=== PATIENT | female | born 1965 | race Hispanic/Latino ===

== ENCOUNTER 2019-12-25 16:01 | Emergency (ER) | payer BC ==
[2019-12-25 18:49] LABS: Basophils % (Auto) 0.7 % (0.0-1.8); Eosinophils % (Auto) 0.5 % (0.0-4.3); Hematocrit 39.9 % (30.3-42.9); Hemoglobin 14.1 gm/dl (10.1-14.3); Lymphocytes # (Auto) 1.7 K/mm3 (1.2-5.4); Lymphocytes % (Auto) 27.5 % (13.4-35.0); Mean Corpuscular HGB Conc 35 % (30-34); Mean Corpuscular Volume 85 fl (79-97); Monocytes # (Auto) 0.4 K/mm3 (0.0-0.8); Monocytes % (Auto) 6.9 % (0.0-7.3); Platelet Count 253 K/mm3 (140-440); Red Cell Distribution Width 13.2 % (13.2-15.2)
--- NOTE | 2019-12-25 18:55 | Emergency Department Report ---
ED General Adult HPI - General Chief complaint: High BP Stated complaint: HYPERTENSION PUI?: No Time Seen by Provider: 12/25/19 18:22 Source: patient Mode of arrival: Ambulatory Limitations: No Limitations - History of Present Illness Initial comments: The patient was evaluated in the emergency department for symptoms described in the history of present illness. He/she was evaluated in the context of the global COVID-19 pandemic, which necessitated consideration that the patient might be at risk for infection with the virus that causes COVID-19. Institutional protocols and algorithms that pertain to the evaluation of pat ients at risk for COVID-19 are in a state of rapid change based on information released by regulatory bodies including the CDC and federal and state organizations. These policies and algorithms were followed during the patient's care in the emergency department. Please note that these policies, procedures and recommendations changed on a rapid basis. 54-year-old female presents to the emergency room from her primary care provider for hypertension and nausea. Patient states that on she had dental work done Wednesday she woke up about 3 AM and vomited. Patient reports she suffers from chronic nausea. Patient states that she had also woke up with chest pain just under her right breast. Patient states that she had eaten and lay down before the chest discomfort. Patient thinks it may be due to her GERD. Patient reports that she has a history of diabetes, hypertension, GERD, migraines, Hunter, cholesterol, multiple chemical sensitivity (MCS) and fibromyalgia. Patient reports that she has a history of lung cancer and had her right middle lobe removed last year. Patient reports that she has been off of her diabetic medication for about a year. She has been off her blood pressure medication for about 3 months. Patient thinks that she was on Hyzaar 100/25 and lisinopril 20 mg. She takes Protonix, Zofran and Januvia 100 mg and Jardiance 25 mg. Patient reports she takes Zofran and Protonix for her GERD and chronic nausea. Patient states that she just started back working now works in [employer] and now has insurance. It was noted that patient's blood pressure was 206/104 and heart rate 94. Patient has an allergy to clonidine. Onset/Timin -: days(s) Location: chest Severity scale (0 -10): 0 Quality: sharp Consistency: intermittent Associated Symptoms: nausea/vomiting. denies: cough, fever/chills, shortness of breath, weakness Treatments Prior to Arrival: none - Related Data Previous Rx's Medication Instructions Recorded Last Taken Type Losartan/Hydrochlorothiazide 1 each PO QDAY #30 tablet 12/25/19 Unknown Rx [Hyzaar 100-12.5 Tablet] amLODIPine 5 mg PO DAILY #30 tab 12/25/19 Unknown Rx Allergies Allergy/AdvReac Type Severity Reaction Status Date / Time clonidine Allergy Hives Verified 12/25/19 16:59 ED Review of Systems ROS: Stated complaint: HYPERTENSION Other details as noted in HPI Comment: All other systems reviewed and negative ED Past Medical Hx - Past Medical History Previous Medical History?: Yes Hx Hypertension: Yes Hx Diabetes: Yes Hx GERD: Yes Hx Headaches / Migraines: Yes Additional medical history: FIBROMYALGIA,HUNTER,CHOLESTEROL,MCS( MULTIPLE CHEMICAL SENSITIVITY) - Surgical History Past Surgical History?: Yes Additional Surgical History: CARCINOID LUNG CA 2019- REMOVED NO TX NEEDED - Social History Smoking Status: Never Smoker Substance Use Type: None - Medications Home Medications: Home Medications Medication Instructions Recorded Confirmed Last Taken Type Losartan/Hydrochlorothiazide 1 each PO QDAY #30 tablet 12/25/19 Unknown Rx [Hyzaar 100-12.5 Tablet] amLODIPine 5 mg PO DAILY #30 tab 12/25/19 Unknown Rx ED Physical Exam - General Limitations: No Limitations General appearance: alert, in no apparent distress - Head Head exam: Present: atraumatic, normocephalic - Eye Eye exam: Present: normal appearance - ENT ENT exam: Present: mucous membranes moist - Neck Neck exam: Present: normal inspection - Respiratory Respiratory exam: Present: normal lung sounds bilaterally. Absent: respiratory distress, chest wall tenderness - Cardiovascular Cardiovascular Exam: Present: regular rate, normal rhythm. Absent: systolic murmur, diastolic murmur, rubs, gallop - GI/Abdominal GI/Abdominal exam: Present: soft, distended, tenderness (Right under the breasts) - Back Exam Back exam: Present: full ROM - Neurological Exam Neurological exam: Present: alert, oriented X3, normal gait - Psychiatric Psychiatric exam: Present: normal affect, normal mood - Skin Skin exam: Present: warm, dry, intact, normal color. Absent: rash ED Course Vital Signs 12/25/19 16:59 Temperature 97.9 F Pulse Rate 94 H Respiratory 18 Rate Blood Pressure 206/104 [Right] O2 Sat by Pulse 98 Oximetry ED Medical Decision Making - Lab Data Result diagrams: 12/25/19 18:31 12/25/19 18:31 - Medical Decision Making 54-year-old female presents to the emergency room from her primary care provider for hypertension and nausea. Patient states that on she had dental work done Wednesday she woke up about 3 AM and vomited. Patient reports she suffers from chronic nausea. Patient states that she had also woke up with chest pain just under her right breast. Patient states that she had eaten and lay down before the chest discomfort. Patient thinks it may be due to her GERD. Patient reports that she has a history of diabetes, hypertension, GERD, migraines, Hunter, cholesterol, multiple chemical sensitivity (MCS) and fibromyalgia. Patient reports that she has a history of lung cancer and had her right middle lobe removed last year. Patient reports that she has been off of her diabetic medication for about a year. She has been off her blood pressure medication for about 3 months. Patient thinks that she was on Hyzaar 100/25 and lisinopril 20 mg. She takes Protonix, Zofran and Januvia 100 mg and Jardiance 25 mg. Patient reports she takes Zofran and Protonix for her GERD and chronic nausea. Patient states that she just started back working now works in [employer] and now has insurance. It was noted that patient's blood pressure was 206/104 and heart rate 94. Patient has an allergy to clonidine. CBC CMP lipase EKG. Critical care attestation.: If time is entered above; I have spent that time in minutes in the direct care of this critically ill patient, excluding procedure time. ED Disposition Clinical Impression: HTN (hypertension) with goal to be determined Disposition: DC-01 TO HOME OR SELFCARE Is pt being admited?: No Does the pt Need Aspirin: No Condition: Stable Instructions: Hypertension (ED) Additional Instructions: All labs are stable. Blood sugar is mildly elevated at 153. Please start back on your blood pressure medication and follow-up with your primary care provider. Prescriptions: amLODIPine 5 mg PO DAILY #30 tab Losartan/Hydrochlorothiazide [Hyzaar 100-12.5 Tablet] 1 each PO QDAY #30 tablet Referrals: AYO DRAKE MD [Staff Physician] - 3-5 Days Your, primary care provider [Other] - 3-5 Days Forms: Work/School Release Form(ED)
[2019-12-25 19:39] LABS: BUN/Creatinine Ratio 20; Blood Urea Nitrogen 14 mg/dL (7-17); Calcium 9.8 mg/dL (8.4-10.2)
[2019-12-25 21:28] LABS: Albumin 4.5 g/dL (3.9-5); Bilirubin,Direct 0.2 mg/dL (0-0.2)
[2019-12-26 08:12] VITALS: BP 193/90
== END 2019-12-25 21:45 | disposition home or self-care (01) ==
LOC: ED 16:01
DX: I10 Essential (primary) hypertension (principal); K21.9 Gastro-esophageal reflux disease without esophagitis; E11.9 Type 2 diabetes mellitus without complications; G43.909 Migraine, unspecified, not intractable, without status migrainosus; E78.00 Pure hypercholesterolemia, unspecified; Z88.6 Allergy status to analgesic agent
CPT/HCPCS: 36415; 80048; 80076; 83690; 85025; 93005

== ENCOUNTER 2020-02-29 07:41 | Outpatient (CLI) | payer BC ==
--- NOTE | 2020-02-29 09:27 | Ultrasound Report ---
ULTRASOUND ABDOMEN, COMPLETE INDICATION: EPIGASTRIC PAIN. COMPARISON: No relevant prior imaging study available. FINDINGS: Pancreas: No significant abnormality. Abdominal Aorta: No significant abnormality. IVC: No significant abnormality. Liver: The liver measures 18.4 cm in length. The liver is enlarged with moderate diffuse fatty infil tration. No focal liver lesion is detected. Normal hepatopedal blood flow in the main portal vein. Gallbladder: No significant abnormality. Bile ducts: No significant abnormality. Common bile duct measures 3.8 mm. Kidneys: Right: 11.2 cm in length. No significant abnormality. Left: 9.7 cm in length. No signifi cant abnormality. Prominent column of [employer] seen in the left kidney is noted. Spleen: No significant abnormality. Free fluid: None. Additional Findings: None. IMPRESSION: Mild hepatomegaly with moderate diffuse fatty infiltration.. Signer Name: Fermin Hayes Jr, MD Signed: 02/29/2020 9:22 AM Workstation Name: [id number]
[2020-02-29 09:55] LABS: INR 0.84 (0.87-1.13)
[2020-02-29 10:06] LABS: Albumin 4.4 g/dL (3.9-5); Blood Urea Nitrogen 10 mg/dL (7-17); Calcium 9.5 mg/dL (8.4-10.2); Hemolysis Index 24
[2020-02-29 10:07] LABS: BUN/Creatinine Ratio 20
[2020-02-29 10:19] LABS: Alanine Aminotransferase < 5 units/L (7-56)
== END 2020-02-29 07:42 | disposition home or self-care (01) ==
LOC: US 07:41
PROVIDERS: ATTEND Internal Medicine Gastroenterology
DX: K76.0 Fatty (change of) liver, not elsewhere classified (principal); R16.1 Splenomegaly, not elsewhere classified
CPT/HCPCS: 36415; 76700; 80053; 83516; 85610

== ENCOUNTER 2020-03-17 23:14 | Inpatient (IN) | payer BC ==
--- NOTE | 2020-03-18 00:28 | Emergency Department Report ---
Blank Doc - Documentation Documentation: 55-year-old female that presents with epigastric and right abdominal pain with nausea. 1- This initial assessment/diagnostic orders/clinical plan/ treatment(s) is/are subject to change based on pt's health status, clinical progression and re- assessment by fellow clinical providers in the ED. Further treatment and workup at subsequent clinical provers discretion. Patient/guardians urged not to elope from ED as their condition may be serious if not clinically assessed and herminio herndon. 2-lab 3-UA
[2020-03-18 01:22] LABS: Bacteria,Urine 2+ /HPF (Negative); Bilirubin,Urine SM (Negative); Blood,Urine NEG (Negative); Color,Urine Yellow (Yellow); Mucus,Urine 2+ /HPF; Protein,Urine >500 mg/dL (Negative); Sperm,Urine FEW /HPF (NP); Urobilinogen,Urine < 2.0 mg/dL (<2.0)
[2020-03-18 01:27] LABS: Albumin 4.2 g/dL (3.9-5); Blood Urea Nitrogen 8 mg/dL (7-17); Calcium 9.6 mg/dL (8.4-10.2); Hemolysis Index 97
[2020-03-18 01:34] LABS: BUN/Creatinine Ratio 16
[2020-03-18 01:44] LABS: Alanine Aminotransferase < 5 units/L (7-56)
[2020-03-18] MEDS ORDERED: SODIUM CHLORIDE 0.9% 1000 ML 1,000 ML IV ONE ×2 (03:11)
[2020-03-18] MEDS ORDERED: fentaNYL 100 MCG/2 ML INJ IV ONE (03:11)
[2020-03-18] MEDS ORDERED: ONDANSETRON 4 MG/2 ML INJ IV ONE (03:11)
[2020-03-18 03:16] LABS: Hematocrit TNR % (30.3-42.9); Hemoglobin TNR gm/dl (10.1-14.3); Mean Corpuscular Volume TNR fl (79-97); Red Blood Count TNR M/mm3 (3.65-5.03)
[2020-03-18 03:17] LABS: Mean Corpuscular HGB Conc TNR % (30-34); Platelet Count TNR K/mm3 (140-440); Red Cell Distribution Width TNR % (13.2-15.2)
[2020-03-18] MEDS ORDERED: SODIUM CHLORIDE 0.9% 1000 ML IV SOLN ONE (03:24)
[2020-03-18] MEDS ORDERED: fentaNYL 100 MCG/2 ML INJ ONE (03:24)
[2020-03-18] MEDS ORDERED: ONDANSETRON 4 MG/2 ML INJ ONE (03:24)
--- NOTE | 2020-03-18 03:29 | Emergency Department Report ---
HPI - General Chief Complaint: Abdominal Pain Time Seen by Provider: 03/18/20 00:27 - HPI HPI: Room 36 The patient is a 54-year-old female present with a chief complaint of abdominal pain. Patient states she has been suffering from intermittent abdominal pain for several months and is being followed by [facility]. The patient states yesterday she experienced nausea and vomiting and then today after waking up from a nap at approximately 2100 she noticed pain in the midepigastric and right upper quadrant radiating to her back. Patient describes the pain is sharp in nature. Patient states she does not feel short of breath and became diaphoretic with the pain. Patient denies diarrhea. The patient states her business account leader performed a ultrasound (02/29/2020) which did not reveal cholelithiasis. She states they were discussing performing a HIDA scan. The patient states she was scheduled to receive a colonoscopy and endoscopy at this hospital tomorrow as an outpatient. The patient states her last stress test occurred in 2019 and was normal but she has never had a cardiac catheterization ED Past Medical Hx - Past Medical History Previous Medical History?: Yes Hx Hypertension: Yes Hx Diabetes: Yes Hx GERD: Yes Hx Headaches / Migraines: Yes Additional medical history: FIBROMYALGIA,HUNTER,CHOLESTEROL,MCS( MULTIPLE CHEMICAL SENSITIVITY) - Surgical History Past Surgical History?: Yes Additional Surgical History: CARCINOID LUNG CA 2019- REMOVED NO TX NEEDED, C-sec tion x3 - Family History Family history: no significant - Social History Smoking Status: Never Smoker Substance Use Type: None (Denies illicit drug use) - Medications Home Medications: Home Medications Medication Instructions Recorded Confirmed Last Taken Type Losartan/Hydrochlorothiazide 1 each PO QDAY #30 tablet 12/25/19 Unknown Rx [Hyzaar 100-12.5 Tablet] amLODIPine 5 mg PO DAILY #30 tab 12/25/19 Unknown Rx ED Review of Systems ROS: Stated complaint: ABD PAIN Other details as noted in HPI Constitutional: diaphoresis. denies: fever Eyes: denies: eye pain ENT: denies: throat pain Respiratory: shortness of breath Cardiovascular: chest pain Endocrine: no symptoms reported Gastrointestinal: abdominal pain, nausea, vomiting. denies: diarrhea Musculoskeletal: back pain Neurological: denies: headache Physical Exam - Physical Exam Vital Signs: Vital Signs 03/18/20 03/18/20 02:35 02:56 Temperature 98.2 F Pulse Rate 109 H Respiratory 18 16 Rate Blood Pressure 139/96 [Left] O2 Sat by Pulse 100 Oximetry Physical Exam: GENERAL: The patient is well-developed well-nourished female lying on stretcher appearing to be in mild discomfort. [] HEENT: Normocephalic. Atraumatic. Extraocular motions are intact. Patient has moist mucous membranes. NECK: Supple. Trachea midline CHEST/LUNGS: Clear to auscultation. There is no respiratory distress noted. HEART/CARDIOVASCULAR: Regular. There is no tachycardia. There is no gallop rub or murmur. ABDOMEN: Abdomen is soft, with tenderness to palpation in the midepigastric and right upper quadrant. Patient has normal bowel sounds. There is no abdominal distention. SKIN: There is no rash. There is no edema. There is no diaphoresis. NEURO: The patient is awake, alert, and oriented. The patient is cooperative. The patient has no focal neurologic deficits. The patient has normal speech MUSCULOSKELETAL:There is no evidence of acute injury. ED Course Vital Signs 03/18/20 03/18/20 02:35 02:56 Temperature 98.2 F Pulse Rate 109 H Respiratory 18 16 Rate Blood Pressure 139/96 [Left] O2 Sat by Pulse 100 Oximetry ED Medical Decision Making - Lab Data Result diagrams: 03/18/20 00:36 03/18/20 00:36 - EKG Data -: EKG Interpreted by Md EKG shows normal: sinus rhythm Rate: tachycardia (111 bpm) - EKG Data When compared to previous EKG there are: previous EKG unavailable Interpretation: other (No ischemic changes seen) - Radiology Data Radiology results: report reviewed (CT abdomen pelvis), image reviewed (CT abdomen pelvis) [address] [address] Cat Scan Report Signed Patient: VIRIDIANA PICHARDO MR#: [id number] : 1965 Acct:[id number] Age/Sex: 54 / F ADM Date: 03/17/20 Loc: ED Attending Dr: Ordering Physician: JESSIE VALLEJO MD Date of Service: 03/18/20 Procedure(s): CT abdomen pelvis w con Accession Number(s): [id number] cc: JESSIE VALLEJO MD CT ABDOMEN AND PELVIS WITH CONTRAST INDICATION / CLINICAL INFORMATION: Epigastric and right upper quadrant pain. TECHNIQUE: Axial CT images were obtained through the abdomen and pelvis after 100 mL Omnipaque [address] scans at this location are performed using CT dose reduction for ALARA by means of automated exposure control. COMPARISON: Ultrasound dated 02/29/20 FINDINGS: LOWER CHEST: No significant abnormality. LIVER: Liver is enlarged and diffusely hypodense characteristic of fatty infiltration. No change. GALLBLADDER: No significant abnormality. BILE DUCTS: No significant abnormality. PANCREAS: No significant abnormality. SPLEEN: No significant abnormality. ADRENALS: No significant abnormality. RIGHT KIDNEY / URETER: No significant abnormality. LEFT KIDNEY / URETER: No significant abnormality. STOMACH / SMALL BOWEL: No significant abnormality. COLON: No significant abnormality. APPENDIX: No significant abnormality. PERITONEUM: No free fluid. No free air. No fluid collection. LYMPH NODES: No significant adenopathy. AORTA / ARTERIES: No significant abnormality. IVC / VEINS: No significant abnormality. URINARY BLADDER: No significant abnormality. REPRODUCTIVE ORGANS: Uterus is absent. No significant adnexal abnormality. ADDITIONAL FINDINGS: None. SKELETAL SYSTEM: No significant abnormality. IMPRESSION: 1. No inflammatory process or bowel obstruction. 2. Hepatomegaly with hepatic steatosis, unchanged. Signer Name: Amaya Malloy MD Signed: 03/18/2020 4:14 AM Workstation Name: [id number] Transcribed By: DT Dictated By: Pelon Malloy MD Electronically Authenticat ed By: Pelon Malloy MD Signed Date/Time: 03/18/20413 DD/ 0 TD/TT: - Differential Diagnosis Gastritis, GERD, pancreatitis, biliary colic, ACS Critical care attestation.: If time is entered above; I have spent that time in minutes in the direct care of this critically ill patient, excluding procedure time. ED Disposition Clinical Impression: Acute abdominal pain, Hyponatremia Disposition: OP ADMIT IP TO THIS HOSP Is pt being admited?: Yes Does the pt Need Aspirin: No Condition: Fair Instructions: Abdominal Pain (ED) Referrals: ARACELI FERNANDEZ MD [Primary Care Provider] - 3-5 Days Time of Disposition: 04:38 (Hospitalist notified (Dr Winkler))
[2020-03-18] MEDS ORDERED: levoFLOXacin 500 MG TAB PO ONE (03:30)
--- NOTE | 2020-03-18 04:18 | Cat Scan Report ---
CT ABDOMEN AND PELVIS WITH CONTRAST INDICATION / CLINICAL INFORMATION: Epigastric and right upper quadrant pain. TECHNIQUE: Axial CT images were obtained through the abdomen and pelvis after 100 mL Omnipaque [address] scans at this location are performed using CT dose reduction for ALARA by means of automated exposure control. COMPARISON: Ultrasound dated 02/29/20 FINDINGS: LOWER CHEST: No significant abnormality. LIVER: Liver is enlarged and diffusely hypodense characteristic of fatty infiltration. No change. GALLBLADDER: No significant abnormality. BILE DUCTS: No significant abnormality. PANCREAS: No significant abnormality. SPLEEN: No significant abnormality. ADRENALS: No significant abnormality. RIGHT KIDNEY / URETER: No significant abnormality. LEFT KIDNEY / URETER: No significant abnormality. STOMACH / SMALL BOWEL: No significant abnormality. COLON: No significant abnormality. APPENDIX: No significant abnormality. PERITONEUM: No free fluid. No free air. No fluid collection. LYMPH NODES: No significant adenopathy. AORTA / ARTERIES: No significant abnormality. IVC / VEINS: No significant abnormality. URINARY BLADDER: No significant abnormality. REPRODUCTIVE ORGANS: Uterus is absent. No significant adnexal abnormality. ADDITIONAL FINDINGS: None. SKELETAL SYSTEM: No significant abnormality. IMPRESSION: 1. No inflammatory process or bowel obstruction. 2. Hepatomegaly with hepatic steatosis, unchanged. Signer Name: Amaya Malloy MD Signed: 03/18/2020 4:14 AM Workstation Name: [id number]
--- NOTE | 2020-03-18 04:38 | History and Physical Report ---
History of Present Illness Date of examination: 03/18/20 Date of admission: 03/18/2020 Chief complaint: Abdominal pain History of present illness: 54-year-old female with known history of hypertension, diabetes mellitus, GERD, history of HUNTER(nonalcoholic steatohepatitis) presenting to the emergency room today complaining of abdominal pain. She has been having intermittent abdominal pain for several months and follows up at [facility]. She has had some nausea and vomiting but denies any diarrhea. Patient denies any fever or chills, denies any chest pain or shortness of breath. Abdominal pain is said to be more in the midepigastric region radiating towards the right upper quadrant. Pain radiates towards the back at times. No no relieving or exacerbating factor. She had an ultrasound done on February 29, 2020 we did not reveal any acute a bnormalities. She is being considered for possible HIDA scan, colonoscopy and endoscopy. Patient follows up with with [facility]. Patient denies any sick contacts and no recent travel. Denies any contact with anyone with COVID-19. Work-up in the emergency room today, CT scan of the abdomen and pelvis reveals:1. No inflammatory process or bowel obstruction. 2. Hepatomegaly with hepatic steatosis, unchanged. Labs reveals a hyponatremia and urinalysis reveals a UTI. Patient is being admitted for abdominal pain for which she follows up with [facility], hyponatremia and a UTI. Past History Past Medical History: diabetes, GERD, hypertension, other (Fibromyalgia, carcinoid lung cancer in 2019, migraine headache,Multiple chemical sensitivity) Past Surgical History: Social history: no significant social history Family history: no significant family history Medications and Allergies Allergies Allergy/AdvReac Type Severity Reaction Status Date / Time clonidine Allergy Hives Verified 12/25/19 16:59 Home Medications Medication Instructions Recorded Confirmed Last Taken Type Losartan/Hydrochlorothiazide 1 each PO QDAY #30 tablet 12/25/19 Unknown Rx [Hyzaar 100-12.5 Tablet] amLODIPine 5 mg PO DAILY #30 tab 12/25/19 Unknown Rx Review of Systems Constitutional: no fever, no chills Ears, nose, mouth and throat: no nasal congestion, no sore throat Cardiovascular: no chest pain, no palpitations Respiratory: no cough, no shortness of breath Gastrointestinal: abdominal pain, nausea, vomiting, heartburn, no diarrhea, no hematemesis, no coffee ground emesis Genitourinary Female: no pelvic pain, no flank pain, no dysuria, no hematuria Musculoskeletal: no neck pain, no low back pain Integumentary: no rash, no pruritis Neurological: no headaches, no confusion Psychiatric: no anxiety, no depression Exam - Constitutional Vitals: Temp Pulse Resp BP Pulse Ox 98.2 F 109 H 19 139/96 100 03/18/20 02:56 03/18/20 02:56 03/18/20 03:31 03/18/20 02:56 03/18/20 02:56 General appearance: Present: no acute distress, well-nourished - EENT Eyes: Present: PERRL, EOM intact. Absent: scleral icterus ENT: hearing intact, clear oral mucosa, dentition normal - Neck Neck: Present: supple, normal ROM - Respiratory Respiratory effort: normal Respiratory: bilateral: CTA - Cardiovascular Rhythm: regular Heart Sounds: Present: S1 & S2. Absent: gallop, systolic murmur, diastolic murmur, rub, click - Extremities Extremities: no ischemia, pulses intact, pulses symmetrical, No edema, normal temperature, normal color, Full ROM Peripheral Pulses: within normal limits - Abdominal General gastrointestinal: Present: soft, tender (Epigastric and right upper quadrant tenderness which minimal guarding, no rebound tenderness), non- distended, normal bowel sounds. Absent: mass - Integumentary Integumentary: Present: clear, warm, dry. Absent: rash - Musculoskeletal Musculoskeletal: strength equal bilaterally - Psychiatric Psychiatric: appropriate mood/affect, intact judgment & insight, memory intact, cooperative - Neurologic Neurologic: CNII-XII intact, no focal deficits, moves all extremities Results - Labs CBC & Chem 7: 03/18/20 00:36 03/18/20 00:36 Labs: Abnormal lab results 03/18/20 03/18/20 Range/Units 00:36 Unknown Sodium 122 L (137-145) mmol/L Potassium 3.4 L (3.6-5.0) mmol/L Chloride 80.9 L (98-107) mmol/L Creatinine 0.5 L (0.6-1.2) mg/dL Glucose 342 H (65-100) mg/dL AST < 5 L (5-40) units/L ALT < 5 L (7-56) units/L Ur Specific [place] 1.037 H (1.003-1.030) Urine WBC (Auto) 156.0 H (0.0-6.0) /HPF Assessment and Plan - Patient Problems (1) Acute abdominal pain Current Visit: Yes Status: Acute Plan to address problem: Etiology unclear. Patient follows up with [facility]. Will place patient on IV analgesic medication and will also be made n.p.o. Consult will be placed to gastroenterology for evaluation and recommendation. (2) Hyponatremia Current Visit: Yes Status: Acute Plan to address problem: Patient placed on IV fluid normal saline. Will monitor chemistry. (3) UTI (urinary tract infection) Current Visit: Yes Status: Acute Plan to address problem: We will place patient on empiric IV antibiotics. (4) DVT prophylaxis Current Visit: Yes Status: Acute Plan to address problem: Patient placed on subcutaneous heparin. (5) Full code status Current Visit: Yes Status: Acute Plan to address problem: Patient is a full code.
[2020-03-18] MEDS ORDERED: DEXTROSE 50% IN WATER (25GM) 50 ML SYRINGE IV PRN (04:52)
[2020-03-18] MEDS ORDERED: MAGNESIUM HYDROXIDE (MOM) ORAL LIQD UDC PO PRN (04:52)
[2020-03-18] MEDS ORDERED: POTASSIUM CHLORIDE 10 MEQ 10 MEQ/100 ML BAG IV ONE (06:10)
[2020-03-18] MEDS: cefTRIAXone/NS 1 GM/50 ML 1 GM/50 ML BAG IV SCH (06:18)
[2020-03-18] MEDS: HEPARIN 5,000 UNIT/1 ML VIAL SUB-Q SCH ×3 (06:21→21:56)
[2020-03-18] MEDS: SODIUM CHLORIDE 0.9% 1000 ML 1,000 ML IV SCH ×3 (06:21→18:49)
[2020-03-18] MEDS: INSULIN LISPRO 100 UNIT/ML SUB-Q SCH ×4 (08:00→21:56)
--- NOTE | 2020-03-18 08:28 | Gastroenterology Consultation ---
History of Present Illness - Reason for Consult Consult date: 03/18/20 abd pain Requesting physician: MARGARITA TAN - History of Present Illness Patient reports she has been having abdominal pain in the epigastric area, radiating to the shoulder (she is not fully sure if the pain is radiating to the shoulder or if she has a separate shoulder pain), the pain is sharp, worsening, severe, worse with eating and better with nothing, imaging here again shows fatty liver no cause for the pain though patient was scheduled for outpatient EGD tomorrow for eval of the symptoms (also scheduled for surveillance colon, but she doesn't think she can tolerate the colon prep) 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 History Past Medical History: diabetes, GERD, hypertension, other (Fibromyalgia, carcinoid lung cancer in 2019, migraine headache,Multiple chemical sensitivity) Past Surgical History: Social history: no significant social history Family history: no significant family history home meds updated/obtained/reviewed Past History Past Medical History: diabetes, GERD, hypertension, other (Fibromyalgia, carcinoid lung cancer in 2019, migraine headache,Multiple chemical sensitivity) Past Surgical History: Social history: no significant social history Family history: no significant family history Medications and Allergies Allergies Allergy/AdvReac Type Severity Reaction Status Date / Time clonidine Allergy Hives Verified 12/25/19 16:59 Home Medications Medication Instructions Recorded Confirmed Last Taken Type DULoxetine [Cymbalta] 60 mg PO QDAY 03/18/20 03/18/20 Unknown History Losartan/Hydrochlorothiazide 1 each PO DAILY 03/18/20 03/18/20 Unknown History [Hyzaar 100-12.5 Tablet] Metoprolol [Lopressor TAB] 1 tab PO DAILY 03/18/20 03/18/20 Unknown History Ondansetron HCl [Zofran] 8 mg PO DAILY 03/18/20 03/18/20 Unknown History Pantoprazole [Protonix] 40 mg PO QDAY 03/18/20 03/18/20 Unknown History amLODIPine 5 mg PO DAILY 03/18/20 03/18/20 Unknown History amLODIPine [Norvasc] 5 mg PO DAILY 03/18/20 03/18/20 Unknown History busPIRone [Buspar] 5 mg PO DAILY 03/18/20 03/18/20 Unknown History Active Meds: Active Medications Acetaminophen (Acetaminophen 325 Mg Tab) 650 mg PO Q4H PRN PRN Reason: Pain MILD(1-3)/Fever >100.5/JACKSON Dextrose (Dextrose 50% In Water (25gm) 50 Ml Syringe) 0 ml IV Q30MIN PRN; Protocol PRN Reason: Hypoglycemia Heparin Sodium (Porcine) (Heparin 5,000 Unit/1 Ml Vial) 5,000 unit SUB-Q Q8HR GUDELIA Last Admin: 03/18/20 06:21 Dose: 5,000 unit Documented by: Sodium Chloride (Nacl 0.9% 1000 Ml) 1,000 mls @ 125 mls/hr IV DIRECT GUDELIA Last Admin: 03/18/20 06:21 Dose: 125 mls/hr Documented by: Ceftriaxone Sodium (Rocephin/Ns 1 Gm/50 Ml) 1 gm in 50 mls @ 100 mls/hr IV Q24H GUDELIA; Protocol Last Admin: 03/18/20 06:18 Dose: 100 mls/hr Documented by: Insulin Human Lispro (Insulin Lispro 100 Unit/Ml) 0 unit SUB-Q ACHS GUDELIA; Protocol Magnesium Hydroxide (Magnesium Hydroxide (Mom) Oral Liqd Udc) 30 ml PO Q4H PRN PRN Reason: Constipation Ondansetron HCl (Ondansetron 4 Mg/2 Ml Inj) 4 mg IV Q8H PRN PRN Reason: Nausea And Vomiting Sodium Chloride (Sodium Chloride 0.9% 10 Ml Flush Syringe) 10 ml IV BID GUDELIA Sodium Chloride (Sodium Chloride 0.9% 10 Ml Flush Syringe) 10 ml IV PRN PRN PRN Reason: LINE FLUSH Review of Systems - Review of Systems All systems: negative (10 systems reviewed and neg except as mentioned above in the HPI) Exam - Constitutional Vital Signs: Temp Pulse Resp BP Pulse Ox 98.5 F 101 H 19 167/91 100 03/18/20 05:56 03/18/20 05:56 03/18/20 05:56 03/18/20 05:56 03/18/20 05:56 General appearance: no acute distress - EENT Eyes: EOM intact ENT: hearing intact - Neck Neck: supple - Respiratory Respiratory effort: normal - Cardiovascular Rhythm: other (slightly tachy) - Gastrointestinal General gastrointestinal: Present: soft, tender - Integumentary Integumentary: Present: dry - Neurologic Neurological: alert and oriented x3 - Psychiatric Psychiatric: appropriate mood/affect - Labs CBC & Chem 7: 03/18/20 09:03 03/18/20 00:36 Lab Results: Laboratory Results - last 24 hr 03/18/20 03/18/20 03/18/20 00:36 00:36 Unknown WBC TNR RBC TNR Hgb TNR Hct TNR MCV TNR MCH TNR MCHC TNR RDW TNR Plt Count TNR [place] % (Auto) Chrome Polisher Total Counted Cancelled Seg Neutrophils % Chrome Polisher Seg Neuts % (Manual) Cancelled Band Neutrophils % Cancelled Lymphocytes % (Manual) Cancelled Reactive Lymphs % (Man) Cancelled Monocytes % (Manual) Cancelled Eosinophils % (Manual) Cancelled Basophils % (Manual) Cancelled Metamyelocytes % Cancelled Myelocytes % Cancelled Promyelocytes % Cancelled Blast Cells % Cancelled Nucleated RBC % Cancelled Seg Neutrophils # Man Cancelled Band Neutrophils # Cancelled Lymphocytes # (Manual) Cancelled Abs React Lymphs (Man) Cancelled Monocytes # (Manual) Cancelled Eosinophils # (Manual) Cancelled Basophils # (Manual) Cancelled Metamyelocytes # Cancelled Myelocytes # Cancelled Promyelocytes # Cancelled Blast Cells # Cancelled WBC Morphology Cancelled Hypersegmented Neuts Cancelled Hyposegmented Neuts Cancelled Hypogranular Neuts Cancelled Hypersegmented Polys Cancelled Smudge Cells Cancelled Toxic Granulation Cancelled Toxic Vacuolation Cancelled Dohle Bodies Cancelled Pelger-Huet Anomaly Cancelled Jimena Rods Cancelled Platelet Estimate Cancelled Clumped Platelets Cancelled Plt Clumps, EDTA Cancelled Large Platelets Cancelled Giant Platelets Cancelled Platelet Satelliting Cancelled Plt Morphology Comment Cancelled RBC Morphology Cancelled Dimorphic RBCs Cancelled Polychromasia Cancelled Hypochromasia Cancelled Poikilocytosis Cancelled Basophilic Stippling Cancelled Anisocytosis Cancelled Microcytosis Cancelled Macrocytosis Cancelled Spherocytes Cancelled Pappenheimer Bodies Cancelled Sickle Cells Cancelled Target Cells Cancelled Tear Drop Cells Cancelled Ovalocytes Cancelled Stomatocytes Cancelled Helmet Cells Cancelled Oliveira-Naselle Bodies Cancelled [place] Rings Cancelled [place] Cells Cancelled Bite Cells Cancelled Crenated Cell Cancelled Elliptocytes Cancelled Acanthocytes (Spur) Cancelled Rouleaux Cancelled Hemoglobin C Crystals Cancelled Schistocytes Cancelled Malaria parasites Cancelled Chetan Bodies Cancelled Hem Pathologist Commnt Cancelled Sodium 122 L Potassium 3.4 L Chloride 80.9 L Carbon Dioxide 24 Anion Gap 21 BUN 8 Creatinine 0.5 L Estimated GFR > 60 BUN/Creatinine Ratio 16 Glucose 342 H Calcium 9.6 Total Bilirubin 0.50 AST < 5 L ALT < 5 L Alkaline Phosphatase 96 Total Protein 6.8 Albumin 4.2 Albumin/Globulin Ratio 1.6 Lipase 43 Urine Color Yellow Urine Turbidity Cloudy Urine pH 5.0 Ur Specific [place] 1.037 H Urine Protein >500 Urine Glucose (UA) >=500 Urine Ketones Neg Urine Blood Neg Urine Nitrite Neg Urine Bilirubin Sm Urine Ictotest Not Reportable Urine Urobilinogen < 2.0 Ur Leukocyte Esterase Tr Urine WBC (Auto) 156.0 H Urine RBC (Auto) 6.0 U Epithel Cells (Auto) 1.0 Urine Bacteria (Auto) 2+ Urine Mucus 2+ Urine Yeast (Budding) Few Urine Sperm Few Assessment and Plan no etiology yet, but symptoms consistent with GI source such as PUD/HP vs biliary dyskinesia Patient doesn't think can tolerate her prep so won't prep for the surveillance colon she had been scheduled for tomorrow, but will proceed with planned EGD at 8AM tomorrow AM Also HIDA scan ordered r/o biliary dyskinesia In meantime, full liquid diet and PPI - Patient Problems (1) Acute abdominal pain Current Visit: Yes Status: Acute
[2020-03-18 09:21] LABS: Mean Corpuscular Volume 85 fl (79-97); Platelet Count 256 K/mm3 (140-440); Red Blood Count 4.08 M/mm3 (3.65-5.03); Red Cell Distribution Width 13.3 % (13.2-15.2)
[2020-03-18 09:25] LABS: Hematocrit 34.6 % (30.3-42.9); Hemoglobin 13.2 gm/dl (10.1-14.3)
[2020-03-18 09:30] LABS: Mean Corpuscular HGB Conc 38 % (30-34)
[2020-03-18] MEDS: PANTOPRAZOLE 40 MG TAB PO SCH ×2 (15:49→21:56)
--- NOTE | 2020-03-18 16:11 | Event Note ---
Date: 03/18/20 Patient seen and examined This is the second visit after midnight 54-year-old female admitted for abdominal pain and hyponatremia Continue IV fluid, keep n.p.o. after midnight Plan for EGD tomorrow, also ordered for HIDA scan Appreciate GI recommendation c/o mid thoracic back pain -will order thoracic spine CT Follow BMP and H&H
[2020-03-18] MEDS: ONDANSETRON 4 MG/2 ML INJ IV PRN (22:14)
[2020-03-19 05:25] LABS: Mean Corpuscular HGB Conc 37 % (30-34); Mean Corpuscular Volume 86 fl (79-97); Platelet Count 256 K/mm3 (140-440); Red Blood Count 4.08 M/mm3 (3.65-5.03); Red Cell Distribution Width 13.4 % (13.2-15.2)
[2020-03-19 05:26] LABS: Hemoglobin 12.9 gm/dl (10.1-14.3)
[2020-03-19 05:34] LABS: INR 0.88 (0.87-1.13)
[2020-03-19 05:41] LABS: Blood Urea Nitrogen 5 mg/dL (7-17); Calcium 8.6 mg/dL (8.4-10.2); Hemolysis Index 123
[2020-03-19 05:55] LABS: BUN/Creatinine Ratio 13
[2020-03-19] MEDS: cefTRIAXone/NS 1 GM/50 ML 1 GM/50 ML BAG IV SCH (06:22)
[2020-03-19] MEDS: HEPARIN 5,000 UNIT/1 ML VIAL SUB-Q SCH ×3 (06:22→22:03)
[2020-03-19 06:26] LABS: Platelet Estimate Consistent w Auto; RBC Morphology Normal; Total Cells Counted 100
[2020-03-19] MEDS: INSULIN LISPRO 100 UNIT/ML SUB-Q SCH ×4 (08:00→22:03)
--- NOTE | 2020-03-19 08:21 | Cat Scan Report ---
CT THORACIC SPINE WITHOUT CONTRAST INDICATION: back pain. TECHNIQUE: Axial imaging performed through the thoracic spine without the use of contrast. Sagittal and coronal reconstructed images were also reviewed. All CT scans at this location are performed us ing CT dose reduction for ALARA by means of automated exposure control. COMPARISON: CT abdomen pelvis dated 03/18/2020 FINDINGS: Alignment: Spinal alignment is normal. Bones: There is no acute osseous abnormality. Mild degenerative disc disease is noted in the mid to lower thoracic spine. The posterior elements and posterior ribs are unremarkable. No suspicious bony lesion is identified. Soft tissues: Trace right pleural effusion has developed of uncertain etiology. The visualized lungs are adequately aerated. IMPRESSION: No acute abnormality identified. Mild degenerative disc disease in the mid and lower thoracic spine. Trace right pleural effusion is identified which is new. Signer Name: Fermin Hayes Jr, MD Signed: 03/19/2020 8:17 AM Workstation Name: [id number]
[2020-03-19] MEDS ORDERED: SODIUM CHLORIDE 0.9% 1000 ML IV SOLN ONE (08:45)
[2020-03-19] MEDS: SODIUM CHLORIDE 0.9% 1000 ML 1,000 ML IV SCH ×2 (08:50→23:25)
--- NOTE | 2020-03-19 09:12 | Anesthesia Day of Surgery ---
Anesthesia Day of Surgery - Day of Surgery Patient Examined: Yes Patient H&P Reviewed: Yes Patient is NPO: Yes Beta Blockers: Yes Cardiac Clearance: No Pulmonary Clearance: No Jonathan's Test: N/A
--- NOTE | 2020-03-19 09:17 | Anesthesia Consultation ---
Anesthesia Consult and Med Hx Date of service: 03/19/20 - Airway Anesthetic Teeth Evaluation: Good ROM Head & Neck: Adequate Mental/Hyoid Distance: Adequate Mallampati Class: Class II Intubation Access Assessment: Good - Pulmonary Exam CTA: No - Cardiac Exam Cardiac Exam: RRR - Pre-Operative Health Status ASA Pre-Surgery Classification: ASA2 Proposed Anesthetic Plan: MAC - Pulmonary Hx Smoking: No Hx Asthma: No COPD: No Hx Sleep Apnea: No - Cardiovascular System Hx Hypertension: Yes - Central Nervous System Hx Psychiatric Problems: Yes - Gastrointestinal Hx Gastroesophageal Reflux Disease: Yes - Endocrine Hx Renal Disease: No Hx Non-Insulin Dependent Diabetes: Yes - Other Systems Hx Alcohol Use: No Hx Substance Use: No Hx Cancer: Yes Hx Obesity: No
[2020-03-19] MEDS ORDERED: propofoL 200 MG/20 ML VIAL IV ONE ×2 (09:23→09:41)
[2020-03-19] MEDS: METOPROLOL SUCCINATE XL 25 MG TAB PO SCH (10:31)
[2020-03-19] MEDS: amLODIPine 5 MG TAB PO SCH (10:31)
[2020-03-19] MEDS ORDERED: METOPROLOL TARTRATE 25 MG TAB PO SCH (11:00)
[2020-03-19] MEDS ORDERED: POTASSIUM CHLORIDE ER 20 MEQ TAB PO SCH (12:00)
[2020-03-19] MEDS ORDERED: SINCALIDE 5 MCG VIAL IV ONE (12:31)
[2020-03-19] MEDS: PANTOPRAZOLE 40 MG TAB PO SCH ×2 (13:19→22:03)
[2020-03-19] MEDS: ONDANSETRON 4 MG/2 ML INJ IV PRN (13:19)
--- NOTE | 2020-03-19 13:32 | Nuclear Medicine Report ---
NUCLEAR MEDICINE HEPATOBILIARY SCAN INDICATION: abd pain. , Nausea and cramping. TECHNIQUE: Radiotracer: Tc-99m mebrofenin (by IV): 4.5 mCi. Gallbladder Stimulant: 1.3 mcg of Kinevac FINDINGS: Hepatic activity: Normal. Biliary activity: Normal. Common bile duct activity at 5 minutes. Gallbladder activity: Normal at 10 minutes. Small bowel activity: Normal at 20 minutes. Following the infusion of Kinevac, the patient reports the same symptoms were reproduced. The gallbla dder ejection fraction is markedly decreased measuring 5%. IMPRESSION: No biliary obstruction. Decreased gallbladder ejection fraction suggesting biliary dyskinesia. Signer Name: Fermin Hayes Jr, MD Signed: 03/19/2020 1:28 PM Workstation Name: [id number]
[2020-03-19] MEDS: ACETAMINOPHEN 325 MG TAB PO PRN (15:56)
--- NOTE | 2020-03-19 16:20 | Progress Note ---
Assessment and Plan 54-year-old female with known history of hypertension, diabetes mellitus, GERD, history of HUNTER(nonalcoholic steatohepatitis) presenting to the emergency room complaining of abdominal pain. Work-up in the emergency room today, CT scan of the abdomen and pelvis reveals:1. No inflammatory process or bowel obstruction. 2. Hepatomegaly with hepatic steatosis, unchanged. Labs reveals a hyponatremia and urinalysis reveals a UTI. Patient was admitted for abdominal pain for which she follows up with [facility], hyponatremia and a UTI. -- Acute abdominal pain Etiology unclear. Patient follows up with [facility]. Will place patient on IV analgesic medication Consult will be placed to gastroenterology for evaluation and recommendation. -- Hyponatremia Patient placed on IV fluid normal saline. Will monitor chemistry. --Hypokalemia, replete and follow BMP, check Mg level -- UTI (urinary tract infection) We will place patient on empiric IV antibiotics. --HTN, uncontrolled Resumed home meds, follow clinically --h/o depression/anxiety will resume home meds -- DVT prophylaxis Patient placed on subcutaneous heparin. --Full code status Daily course: 03/19: HIDA scan positive for biliary dyskinesia - consult GS. EGD was essentially normal. keep npo after midnight for possible cholecystectomy. Subjective Date of service: 03/19/20 Interval history: Patient seen and examined. Medical records and medication list reviewed. No acute event overnight noted by the RN. Patient c/o intermittent abdominal pain. Patient is tolerating diet. Discussed plan of care at bedside with patient. planned for cholecystectomy tomorrow Objective - Exam Narrative Exam: General appearance: Present: no acute distress, well-nourished - EENT Eyes: Present: PERRL, EOM intact. Absent: scleral icterus ENT: hearing intact, clear oral mucosa, dentition normal - Neck Neck: Present: supple, normal ROM - Respiratory Respiratory effort: normal Respiratory: bilateral: CTA - Cardiovascular Rhythm: regular Heart Sounds: Present: S1 & S2. Absent: gallop, systolic murmur, diastolic murmur, rub, click - Extremities Extremities: no ischemia, pulses intact, pulses symmetrical, No edema, normal temperature, normal color, Full ROM Peripheral Pulses: within normal limits - Abdominal General gastrointestinal: Present: soft, mild tender, non-distended, normal bowel sounds. Absent: mass - Integumentary Integumentary: Present: clear, warm, dry. Absent: rash - Musculoskeletal Musculoskeletal: strength equal bilaterally - Psychiatric Psychiatric: appropriate mood/affect, intact judgment & insight, memory intact, cooperative - Neurologic Neurologic: CNII-XII intact, no focal deficits, moves all extremities - Constitutional Vitals: Vital Signs - 12hr 03/19/20 03/19/20 03/19/20 05:00 08:40 08:42 Temperature 99.7 F H 99.7 F H Pulse Rate 82 101 H 101 H Respiratory 19 19 Rate Blood Pressure 182/99 182/99 O2 Sat by Pulse 97 97 Oximetry 03/19/20 03/19/20 03/19/20 09:56 10:00 10:05 Temperature 98.1 F Pulse Rate 106 H 99 H 101 H Respiratory 16 20 25 H Rate Blood Pressure 178/99 153/90 171/90 O2 Sat by Pulse 93 96 97 Oximetry 03/19/20 03/19/20 03/19/20 10:10 10:25 10:31 Temperature Pulse Rate 103 H 103 H 102 H Respiratory 12 14 Rate Blood Pressure 172/91 169/89 169/89 O2 Sat by Pulse 96 96 Oximetry 03/19/20 10:40 Temperature Pulse Rate 101 H Respiratory 12 Rate Blood Pressure 167/87 O2 Sat by Pulse 97 Oximetry - Labs CBC & Chem 7: 03/20/20 09:39 03/21/20 04:25 Labs: Abnormal lab results 03/18/20 03/18/20 03/19/20 Range/Units 16:07 20:49 05:01 MCHC 37 H (30-34) % PT (12.2-14.9) Sec. Sodium (137-145) mmol/L Potassium (3.6-5.0) mmol/L Chloride (98-107) mmol/L BUN (7-17) mg/dL Creatinine (0.6-1.2) mg/dL Glucose (65-100) mg/dL POC Glucose 233 H 209 H (70-105) mg/dL 03/19/20 03/19/20 03/19/20 Range/Units 05:01 05:01 07:40 MCHC (30-34) % PT 11.8 L (12.2-14.9) Sec. Sodium 131 L D (137-145) mmol/L Potassium 3.2 L (3.6-5.0) mmol/L Chloride 93.8 L (98-107) mmol/L BUN 5 L (7-17) mg/dL Creatinine 0.4 L (0.6-1.2) mg/dL Glucose 216 H (65-100) mg/dL POC Glucose 229 H (70-105) mg/dL 03/19/20 03/19/20 Range/Units 08:58 10:05 MCHC (30-34) % PT (12.2-14.9) Sec. Sodium (137-145) mmol/L Potassium (3.6-5.0) mmol/L Chloride (98-107) mmol/L BUN (7-17) mg/dL Creatinine (0.6-1.2) mg/dL Glucose (65-100) mg/dL POC Glucose 214 H 219 H (70-105) mg/dL
--- NOTE | 2020-03-19 17:30 | Post Anesthesia Evaluation ---
- Post Anesthesia Evaluation Patient Participated: Yes Airway Patent: Yes Stable Respiratory Function: Yes Nausea/Vomiting: No Temp > 96.8F: Yes Pain Manageable: Yes Adequeate Hydration: Yes Anesthesia Complications: No Block Receding Appropriately: Not Applicable Patient on Ventilator: No
[2020-03-20] MEDS: ONDANSETRON 4 MG/2 ML INJ IV PRN ×2 (02:37→18:07)
[2020-03-20] MEDS ORDERED: MORPHINE 2 MG/1 ML INJ IV ONE (02:46)
[2020-03-20] MEDS ORDERED: METOPROLOL TARTRATE 5 MG/5 ML INJ IV ONE (04:35)
[2020-03-20] MEDS: cefTRIAXone/NS 1 GM/50 ML 1 GM/50 ML BAG IV SCH (05:35)
[2020-03-20] MEDS: HEPARIN 5,000 UNIT/1 ML VIAL SUB-Q SCH ×3 (07:11→23:05)
--- NOTE | 2020-03-20 07:53 | Ultrasound Report ---
ULTRASOUND ABDOMEN, LIMITED INDICATION / CLINICAL INFORMATION: ABD PAIN. COMPARISON: CT dated 03/18/20. Ultrasound dated 02/29/20 FINDINGS: PANCREAS: Visualized portion shows no significant abnormality. LIVER: Enlarged measuring 20.0 cm. Diffusely echogenic and heterogeneous characteristic of fatty infi ltration. GALLBLADDER: No significant abnormality. BILE DUCTS: No significant abnormality. Common bile duct measures 3.8 mm. FREE FLUID: None. ADDITIONAL FINDINGS: Right kidney appears within normal limits. IMPRESSION: 1. Hepatomegaly with hepatic steatosis. 2. No acute sonographic abnormality of the gallbladder. Signer Name: Amaya Malloy MD Signed: 03/20/2020 7:48 AM Workstation Name: [id number]
--- NOTE | 2020-03-20 08:43 | Gastroenterology Progress Note ---
Assessment and Plan Patient with significant biliary dyskinesia on HIDA scan therefore that is highest on the differential diagnosis for the patient's symptoms Surgery is already aware of patient and tentatively planning on cholecystectomy later today If the bili dyskinesia is a source the patient's symptoms she will feel significant relief postop Therefore, GI will sign off and as long as patient continues to feel better after her cholecystectomy she may merely call our office to reschedule her routine surveillance colonoscopy that she missed due to to this hospitalization However, she has persistent significant abdominal pain post operatively please call us back so we can further evaluate her symptoms - Patient Problems (1) Acute abdominal pain Current Visit: Yes Status: Acute Subjective Interval history: EGD yesterday (report copied below) essentially normal Patient reports still with moderate residual pain however it is improved with morphine. She just had her ultrasound done and is currently n.p.o. in anticipation of cholecystectomy as the HIDA scan that I ordered indicated significant biliary dyskinesia Date of procedure: 03/19/2020 Procedure: Esophagogastroduodenoscopy with antral biopsies for H. pylori. Preprocedure diagnosis: Recurrent, intractable vomiting. Post procedure diagnosis: Mild distal esophagitis consistent with vomiting. Endoscopist: Dr. Mathews Anesthesia: Monitored anesthesia care per anesthesia department Medications: Propofol per anesthesia. Estimated blood loss: 0. After careful discussion of the nature and purpose of the procedure as well as details the technique risks benefits and alternatives consent was obtained. The patient was placed in the left lateral decubitus position and medicated per anesthesia. The tip of the GOVECS EQ 570 video scope was passed per orum under direct vision into the esophagus and advanced into the stomach and descending duodenum. The descending duodenum the duodenal bulb and pylorus were symmetrical and normal. The scope was withdrawn into the stomach and the stomach then gently insufflated with air. The antrum was normal. The stomach was further insufflated and the scope was then retroflexed and partially withdrawn. The cardia, fundus, and body of the stomach were within normal limits and easily distensible.3 biopsies were taken in the prepyloric area of the antrum for H. pylori testing. The scope was then withdrawn in the forward position. The esophagogastric junction was at 38 cm. There was mild inflamma tion above the Z-line consistent with mild esophagitis from vomiting. Otherwise, the esophageal body was normal throughout. The procedure was was well tolerated and the patient was observed in recovery. Impressions: Mild distal esophagitis consistent with vomiting. Normal upper digestive tract otherwise. Objective - Constitutional Vitals: Temp Pulse Resp BP Pulse Ox 98.7 F 101 H 18 178/94 94 03/20/20 05:44 03/20/20 05:44 03/20/20 05:44 03/20/20 05:44 03/20/20 05:44 General appearance: no acute distress - Respiratory Respiratory effort: normal - Cardiovascular Rhythm: regular - Gastrointestinal General gastrointestinal: Present: soft, tender - Labs CBC & Chem 7: 03/19/20 05:01 03/19/20 05:01 Labs: Laboratory Results - last 24 hr 03/19/20 03/19/20 03/19/20 08:58 10:05 16:14 POC Glucose 214 H 219 H 286 H 03/19/20 21:08 POC Glucose 365 H
--- NOTE | 2020-03-20 09:45 | Consultation ---
History of Present Illness Consult date: 03/20/20 Chief complaint: Epigastric pain - History of present illness History of present illness: 54 yo female with a several month h/o episodic epigastric/RUQ pain associated with nausea and vomiting. Pain radiates to the right back. No exacerbating, relieving or precipitating factors. No melena, hematochezia or hematemesis. Pt has had an extensive GI work up including multiple RUQ US, EGD, CTA, CTP and Hida scan. Past History Past Medical History: diabetes, GERD, hypertension, other (Fibromyalgia, carcinoid lung cancer in 2019, migraine headache,Multiple chemical sensitivity) Past Surgical History: Social history: no significant social history Family history: no significant family history Medications and Allergies Allergies Allergy/AdvReac Type Severity Reaction Status Date / Time clonidine Allergy Hives Verified 12/25/19 16:59 Home Medications Medication Instructions Recorded Confirmed Last Taken Type DULoxetine [Cymbalta] 60 mg PO QDAY 03/18/20 03/18/20 Unknown History Losartan/Hydrochlorothiazide 1 each PO DAILY 03/18/20 03/18/20 Unknown History [Hyzaar 100-12.5 Tablet] Metoprolol [Lopressor TAB] 1 tab PO DAILY 03/18/20 03/18/20 Unknown History Ondansetron HCl [Zofran] 8 mg PO DAILY 03/18/20 03/18/20 Unknown History Pantoprazole [Protonix] 40 mg PO QDAY 03/18/20 03/18/20 Unknown History amLODIPine 5 mg PO DAILY 03/18/20 03/18/20 Unknown History amLODIPine [Norvasc] 5 mg PO DAILY 03/18/20 03/18/20 Unknown History busPIRone [Buspar] 5 mg PO DAILY 03/18/20 03/18/20 Unknown History Active Meds: Active Medications Acetaminophen (Acetaminophen 325 Mg Tab) 650 mg PO Q4H PRN PRN Reason: Pain MILD(1-3)/Fever >100.5/[facility] Last Admin: 03/19/20 15:56 Dose: 650 mg Documented by: Amlodipine Besylate (Amlodipine 5 Mg Tab) 5 mg PO QDAY [facility] Last Admin: 03/19/20 10:31 Dose: 5 mg Documented by: Dextrose (Dextrose 50% In Water (25gm) 50 Ml Syringe) 0 ml IV Q30MIN PRN; Protocol PRN Reason: Hypoglycemia Heparin Sodium (Porcine) (Heparin 5,000 Unit/1 Ml Vial) 5,000 unit SUB-Q Q8HR [facility] Last Admin: 03/20/20 07:11 Dose: Not Given Documented by: Ceftriaxone Sodium (Rocephin/Ns 1 Gm/50 Ml) 1 gm in 50 mls @ 100 mls/hr IV Q24H [facility]; Protocol Last Admin: 03/20/20 05:35 Dose: 100 mls/hr Documented by: Sodium Chloride (Nacl 0.9% 1000 Ml) 1,000 mls @ 42 mls/hr IV DIRECT [facility] Last Admin: 03/19/20 23:25 Dose: 42 mls/hr Documented by: Insulin Human Lispro (Insulin Lispro 100 Unit/Ml) 0 unit SUB-Q ACHS [facility]; Protocol Last Admin: 03/19/20 22:03 Dose: 5 unit Documented by: Magnesium Hydroxide (Magnesium Hydroxide (Mom) Oral Liqd Udc) 30 ml PO Q4H PRN PRN Reason: Constipation Metoprolol Succinate (Metoprolol Succinate Xl 25 Mg Tab) 25 mg PO QDAY [facility] Last Admin: 03/19/20 10:31 Dose: 25 mg Documented by: Ondansetron HCl (Ondansetron 4 Mg/2 Ml Inj) 4 mg IV Q8H PRN PRN Reason: Nausea And Vomiting Last Admin: 03/20/20 02:37 Dose: 4 mg Documented by: Pantoprazole Sodium (Pantoprazole 40 Mg Tab) 40 mg PO BID [facility] Last Admin: 03/19/20 22:03 Dose: 40 mg Documented by: Sodium Chloride (Sodium Chloride 0.9% 10 Ml Flush Syringe) 10 ml IV BID [facility] Last Admin: 03/19/20 22:07 Dose: 10 ml Documented by: Sodium Chloride (Sodium Chloride 0.9% 10 Ml Flush Syringe) 10 ml IV PRN PRN PRN Reason: LINE FLUSH Review of Systems All systems: negative (none.) Exam Vital Signs Resp 18 03/18/20 02:35 - General physical appearance Positive: well developed, well nourished, no distress - Eyes Positive: PERRL, normal occular movement - ENT Positive: normal pinna, normal nares, normal mucosa, no hearing loss, no congestion - Neck Positive: no masses, no bruits, trachea midline, no venous distension - Respiratory Positive: normal expansion, normal respiratory effort, clear to auscultation - Cardiovascular Rhythm: regular Heart Sounds: Present: S1 & S2. Absent: rub, click - Extremities Extremities: no ischemia, pulses symmetrical, No edema - Breasts Breasts: normal, no mass, no skin changes - Abdomen Abdomen: Present: soft, bowel sounds normal, other (Mild tenderness in the epigastrium and RUQ without rebound or guarding.). Absent: tender, distended Hernia: none - Genitourinary Male Genitourinary: normal Female Genitourinary: normal - Integumentary no rash, no growths, no abnormal pigmentation - Neurologic Neurologic: alert and oriented to time, place and person, motor strength and sensation are grossly intact - Musculoskeletal normal gait, normal posture - Psychiatric Psychiatric: appropriate mood/affect, intact judgment & insight Results - Labs 03/19/20 05:01 03/19/20 05:01 Abnormal lab results 03/19/20 03/19/20 03/19/20 Range/Units 10:05 16:14 21:08 POC Glucose 219 H 286 H 365 H (70-105) mg/dL - Imaging CT scan - abdomen: report reviewed CT scan - pelvis: report reviewed US - abdomen: report reviewed Additional studies: EGD results were reviewed. Hida scan results were reviewed. Assessment and Plan - Patient Problems (1) Biliary dyskinesia Current Visit: Yes Status: Acute Plan to address problem: 1) Lap rajni today 2) SCD and SQ Heparin 3) Prophylactic antibiotics
[2020-03-20] MEDS ORDERED: ROCURONIUM 50 MG/5 ML INJ IV ONE (09:51)
[2020-03-20] MEDS ORDERED: propofoL 200 MG/20 ML VIAL IV ONE (09:51)
[2020-03-20] MEDS ORDERED: LIDOCAINE MPF (2%) 20 MG/1 ML VIAL 5 ML ONE (09:51)
[2020-03-20] MEDS ORDERED: ONDANSETRON 4 MG/2 ML INJ ONE (09:51)
[2020-03-20 10:15] LABS: Albumin 3.6 g/dL (3.9-5); Blood Urea Nitrogen 5 mg/dL (7-17); Calcium 8.6 mg/dL (8.4-10.2); Hemolysis Index 39
[2020-03-20 10:18] LABS: BUN/Creatinine Ratio 13
[2020-03-20 10:19] LABS: Mean Corpuscular Volume 85 fl (79-97); Platelet Count 223 K/mm3 (140-440); Red Blood Count 4.06 M/mm3 (3.65-5.03); Red Cell Distribution Width 13.5 % (13.2-15.2)
[2020-03-20 10:20] LABS: Hematocrit 34.6 % (30.3-42.9)
[2020-03-20 10:29] LABS: Eosinophils # (Auto) 0.1 K/mm3 (0.0-0.4); Eosinophils % (Auto) 1.5 % (0.0-4.3); Lymphocytes # (Auto) 1.2 K/mm3 (1.2-5.4); Lymphocytes % (Auto) 26.8 % (13.4-35.0); Monocytes # (Auto) 0.3 K/mm3 (0.0-0.8); Monocytes % (Auto) 7.2 % (0.0-7.3)
[2020-03-20 10:30] LABS: Alanine Aminotransferase < 5 units/L (7-56)
[2020-03-20 10:35] LABS: Mean Corpuscular HGB Conc 38 % (30-34)
[2020-03-20] MEDS: amLODIPine 5 MG TAB PO SCH (10:47)
[2020-03-20] MEDS: METOPROLOL SUCCINATE XL 25 MG TAB PO SCH (10:47)
[2020-03-20] MEDS: PANTOPRAZOLE 40 MG TAB PO SCH ×2 (10:47→23:04)
[2020-03-20] MEDS: INSULIN LISPRO 100 UNIT/ML SUB-Q SCH ×4 (10:48→23:04)
[2020-03-20] MEDS ORDERED: POTASSIUM CHLORIDE ER 20 MEQ TAB PO ONE (11:00)
[2020-03-20] MEDS: POTASSIUM CHLORIDE 10 MEQ 10 MEQ/100 ML BAG IV SCH ×2 (12:50→14:25)
[2020-03-20 14:17] LABS: Band Neutrophils # (Manual) 0.1 K/mm3; Monocytes % (Manual) 11.8 % (0.0-7.3); Platelet Estimate Consistent w Auto; RBC Morphology Normal; Total Cells Counted 51
--- NOTE | 2020-03-20 14:35 | Progress Note ---
Assessment and Plan 54-year-old female with known history of hypertension, diabetes mellitus, GERD, history of HUNTER(nonalcoholic steatohepatitis) presenting to the emergency room complaining of abdominal pain. Work-up in the emergency room today, CT scan of the abdomen and pelvis reveals:1. No inflammatory process or bowel obstruction. 2. Hepatomegaly with hepatic steatosis, unchanged. Labs reveals a hyponatremia and urinalysis reveals a UTI. Patient was admitted for abdominal pain for which she follows up with [facility], hyponatremia and a UTI. -- Acute abdominal pain, due to biliary dyskinesia s/p EGD without any acute findings HIDA scan showed biliary dyskinesia - surgery consulted for cholecystectomy -- Hyponatremia Patient placed on IV fluid normal saline. Will monitor chemistry. --Hypokalemia, replete and follow BMP, check Mg level -- UTI (urinary tract infection) patient on empiric IV antibiotics. --HTN, uncontrolled Resumed home meds, follow clinically --h/o depression/anxiety will resume home meds -- DVT prophylaxis Patient placed on subcutaneous heparin. --Full code status Daily course: 03/19: HIDA scan positive for biliary dyskinesia - consult GS. EGD was essentially normal. keep npo after midnight 03/20: Patient was planned for cholecystectomy but postponed it due to severe hypokalemia. Magnesium level normal, continue to replete potassium, BMP tomorrow a.m. n.p.o. after midnight for possible cholecystectomy. Subjective Date of service: 03/20/20 Interval history: Patient seen and examined. Medical records and medication list reviewed. No acute event overnight noted by the RN. Patient c/o intermittent abdominal pain. Patient is tolerating diet. Discussed plan of care at bedside with patient. Objective - Exam Narrative Exam: General appearance: Present: no acute distress, well-nourished - EENT Eyes: Present: PERRL, EOM intact. Absent: scleral icterus ENT: hearing intact, clear oral mucosa, dentition normal - Neck Neck: Present: supple, normal ROM - Respiratory Respiratory effort: normal Respiratory: bilateral: CTA - Cardiovascular Rhythm: regular Heart Sounds: Present: S1 & S2. Absent: gallop, systolic murmur, diastolic murmur, rub, click - Extremities Extremities: no ischemia, pulses intact, pulses symmetrical, No edema, normal temperature, normal color, Full ROM Peripheral Pulses: within normal limits - Abdominal General gastrointestinal: Present: soft, mild tender, non-distended, normal bowel sounds. Absent: mass - Integumentary Integumentary: Present: clear, warm, dry. Absent: rash - Musculoskeletal Musculoskeletal: strength equal bilaterally - Psychiatric Psychiatric: appropriate mood/affect, intact judgment & insight, memory intact, cooperative - Neurologic Neurologic: CNII-XII intact, no focal deficits, moves all extremities - Constitutional Vitals: Vital Signs - 12hr 03/20/20 03/20/20 03/20/20 05:34 05:44 09:10 Temperature 98.7 F 98.5 F Pulse Rate 104 H 101 H 90 Respiratory 18 20 Rate Blood Pressure 178/97 167/82 Blood Pressure 178/94 [Left] O2 Sat by Pulse 94 96 Oximetry 03/20/20 10:00 Temperature Pulse Rate 83 Respiratory Rate Blood Pressure Blood Pressure [Left] O2 Sat by Pulse Oximetry - Labs CBC & Chem 7: 03/20/20 09:39 03/21/20 04:25 Labs: Abnormal lab results 03/19/20 03/19/20 03/20/20 Range/Units 16:14 21:08 07:47 MCHC (30-34) % Seg Neuts % (Manual) (40.0-70.0) % Lymphocytes % (Manual) (13.4-35.0) % Monocytes % (Manual) (0.0-7.3) % Lymphocytes # (Manual) (1.2-5.4) K/mm3 Sodium (137-145) mmol/L Potassium (3.6-5.0) mmol/L Chloride (98-107) mmol/L BUN (7-17) mg/dL Creatinine (0.6-1.2) mg/dL Glucose (65-100) mg/dL POC Glucose 286 H 365 H 255 H (70-105) mg/dL AST (5-40) units/L ALT (7-56) units/L Albumin (3.9-5) g/dL 03/20/20 03/20/20 Range/Units 09:39 09:39 MCHC 38 H* (30-34) % Seg Neuts % (Manual) 78.4 H (40.0-70.0) % Lymphocytes % (Manual) 7.8 L (13.4-35.0) % Monocytes % (Manual) 11.8 H (0.0-7.3) % Lymphocytes # (Manual) 0.4 L (1.2-5.4) K/mm3 Sodium 131 L (137-145) mmol/L Potassium 2.9 L* (3.6-5.0) mmol/L Chloride 93.7 L (98-107) mmol/L BUN 5 L (7-17) mg/dL Creatinine 0.4 L (0.6-1.2) mg/dL Glucose 252 H (65-100) mg/dL POC Glucose (70-105) mg/dL AST < 5 L (5-40) units/L ALT < 5 L (7-56) units/L Albumin 3.6 L (3.9-5) g/dL
[2020-03-20] MEDS ORDERED: ALPRAZolam 0.5 MG TAB PO ONE (23:50)
[2020-03-21] MEDS: SODIUM CHLORIDE 0.9% 1000 ML 1,000 ML IV SCH (00:51)
[2020-03-21 05:24] LABS: Blood Urea Nitrogen 6 mg/dL (7-17); Calcium 8.6 mg/dL (8.4-10.2); Hemolysis Index 48
[2020-03-21 05:28] LABS: BUN/Creatinine Ratio 15
[2020-03-21] MEDS: POTASSIUM CHLORIDE 10 MEQ 10 MEQ/100 ML BAG IV SCH ×3 (07:38→10:44)
[2020-03-21] MEDS: HEPARIN 5,000 UNIT/1 ML VIAL SUB-Q SCH ×3 (08:40→22:20)
[2020-03-21] MEDS ORDERED: POTASSIUM CHLORIDE ER 20 MEQ TAB PO ONE (10:16)
[2020-03-21] MEDS: cefTRIAXone/NS 1 GM/50 ML 1 GM/50 ML BAG IV SCH (10:24)
[2020-03-21] MEDS: METOPROLOL SUCCINATE XL 25 MG TAB PO SCH (10:43)
[2020-03-21] MEDS: INSULIN LISPRO 100 UNIT/ML SUB-Q SCH ×4 (10:43→23:10)
[2020-03-21] MEDS: amLODIPine 5 MG TAB PO SCH (10:43)
[2020-03-21] MEDS: PANTOPRAZOLE 40 MG TAB PO SCH ×2 (10:43→22:19)
[2020-03-21] MEDS ORDERED: POTASSIUM CHLORIDE ER 20 MEQ TAB PO NR (11:17)
[2020-03-21] MEDS ORDERED: D5W/0.45% NACL/KCL 30 MEQ 30 MEQ/1,000 ML BAG IV SCH (12:00)
[2020-03-21] MEDS: POTASSIUM CHLORIDE 30 MEQ in SODIUM CHLORIDE 0.9% 1000 ML 1,000 ML IV SCH (14:20)
[2020-03-21] MEDS ORDERED: METOPROLOL SUCCINATE XL 25 MG TAB PO SCH (16:31)
[2020-03-21] MEDS ORDERED: amLODIPine 5 MG TAB PO SCH (16:31)
--- NOTE | 2020-03-21 16:58 | Progress Note ---
Assessment and Plan 54-year-old female with known history of hypertension, diabetes mellitus, GERD, history of HUNTER(nonalcoholic steatohepatitis) presenting to the emergency room complaining of abdominal pain. Work-up in the emergency room today, CT scan of the abdomen and pelvis reveals:1. No inflammatory process or bowel obstruction. 2. Hepatomegaly with hepatic steatosis, unchanged. Labs reveals a hyponatremia and urinalysis reveals a UTI. Patient was admitted for abdominal pain, hyponatremia and a UTI. -- Acute abdominal pain, due to biliary dyskinesia s/p EGD without any acute findings HIDA scan showed biliary dyskinesia - surgery consulted for cholecystectomy Plan for cholecystectomy when hypokalemia improves -- Hyponatremia Patient placed on IV fluid normal saline. Will monitor chemistry. --Hypokalemia, replete and follow BMP, check Mg level -- UTI (urinary tract infection) patient on empiric IV antibiotics. follow cx --HTN, uncontrolled Resumed home meds, follow clinically --h/o depression/anxiety will resume home meds -- DVT prophylaxis Patient placed on subcutaneous heparin. --Full code status Daily course: 03/19: HIDA scan positive for biliary dyskinesia - consult GS. EGD was essentially normal. keep npo after midnight 03/20: Patient was planned for cholecystectomy but postponed due to severe hypokalemia -k 2.9. Magnesium level normal, continue to replete potassium, BMP tomorrow a.m. n.p.o. after midnight for possible cholecystectomy. 03/21: K level still 2.8. Patient doesnot tolerate iv Kcl. Continue to replete k orally and with NS. pending laparoscopic cholecystectomy. Follow clinically. Subjective Date of service: 03/21/20 Interval history: Patient seen and examined. Medical records and medication list reviewed. No acute event overnight noted by the RN. Patient continue to c/o intermittent abdominal pain. Patient is tolerating diet. Discussed plan of care at bedside with patient. K level remains low Objective - Exam Narrative Exam: General appearance: Present: no acute distress, well-nourished - EENT Eyes: Present: PERRL, EOM intact. Absent: scleral icterus ENT: hearing intact, clear oral mucosa, dentition normal - Neck Neck: Present: supple, normal ROM - Respiratory Respiratory effort: normal Respiratory: bilateral: CTA - Cardiovascular Rhythm: regular Heart Sounds: Present: S1 & S2. Absent: gallop, systolic murmur, diastolic murmur, rub, click - Extremities Extremities: no ischemia, pulses intact, pulses symmetrical, No edema, normal temperature, normal color, Full ROM Peripheral Pulses: within normal limits - Abdominal General gastrointestinal: Present: soft, mild tender, non-distended, normal bowel sounds. Absent: mass - Integumentary Integumentary: Present: clear, warm, dry. Absent: rash - Musculoskeletal Musculoskeletal: strength equal bilaterally - Psychiatric Psychiatric: appropriate mood/affect, intact judgment & insight, memory intact, cooperative - Neurologic Neurologic: CNII-XII intact, no focal deficits, moves all extremities - Constitutional Vitals: Vital Signs - 12hr 03/21/20 03/21/20 03/21/20 08:00 08:56 12:52 Temperature 97.9 F 98.3 F Pulse Rate 90 89 96 H Respiratory 18 18 Rate Respiratory 20 Rate [Abdomen] Blood Pressure 163/83 173/107 O2 Sat by Pulse 96 91 Oximetry - Labs CBC & Chem 7: 03/20/20 09:39 03/22/20 05:29 Labs: Abnormal lab results 03/20/20 03/20/20 03/20/20 Range/Units 11:34 17:09 21:03 Sodium (137-145) mmol/L Potassium (3.6-5.0) mmol/L Chloride (98-107) mmol/L BUN (7-17) mg/dL Creatinine (0.6-1.2) mg/dL Glucose (65-100) mg/dL POC Glucose 240 H 165 H 272 H (70-105) mg/dL 03/21/20 03/21/20 Range/Units 04:25 08:01 Sodium 132 L (137-145) mmol/L Potassium 2.8 L* (3.6-5.0) mmol/L Chloride 95.7 L (98-107) mmol/L BUN 6 L (7-17) mg/dL Creatinine 0.4 L (0.6-1.2) mg/dL Glucose 250 H (65-100) mg/dL POC Glucose 231 H (70-105) mg/dL
[2020-03-21] MEDS: amLODIPine 10 MG TAB PO SCH (17:25)
[2020-03-21] MEDS: METOPROLOL SUCCINATE XL 50 MG TAB PO SCH (17:25)
[2020-03-21] MEDS: POTASSIUM CHLORIDE ER 20 MEQ TAB PO SCH ×2 (22:19→23:09)
[2020-03-22] MEDS: POTASSIUM CHLORIDE ER 20 MEQ TAB PO SCH ×2 (00:23→01:21)
[2020-03-22] MEDS: POTASSIUM CHLORIDE 30 MEQ in SODIUM CHLORIDE 0.9% 1000 ML 1,000 ML IV SCH (03:56)
[2020-03-22 06:17] LABS: Blood Urea Nitrogen 6 mg/dL (7-17); Calcium 9.1 mg/dL (8.4-10.2); Hemolysis Index 57
[2020-03-22 06:19] LABS: BUN/Creatinine Ratio 15
[2020-03-22] MEDS: cefTRIAXone/NS 1 GM/50 ML 1 GM/50 ML BAG IV SCH (06:56)
--- NOTE | 2020-03-22 08:23 | Progress Note ---
Assessment and Plan Assessment and plan: 54-year-old female with known history of hypertension, diabetes mellitus, GERD, history of HUNTER(nonalcoholic steatohepatitis) presenting to the emergency room complaining of abdominal pain. Work-up in the emergency room today, CT scan of the abdomen and pelvis reveals:1. No inflammatory process or bowel obstruction. 2. Hepatomegaly with hepatic steatosis, unchanged. Labs reveals a hyponatremia and urinalysis reveals a UTI. Patient was admitted for abdominal pain, hyponatremia and a UTI. -- Acute abdominal pain, due to biliary dyskinesia s/p EGD without any acute findings HIDA scan showed biliary dyskinesia - surgery consulted for cholecystectomy Plan for cholecystectomy when hypokalemia improves -- Hyponatremia Patient placed on IV fluid normal saline. Will monitor chemistry. --Hypokalemia, replete and follow BMP, check Mg level -- UTI (urinary tract infection) patient on empiric IV antibiotics. follow cx --HTN, uncontrolled Resumed home meds, follow clinically --h/o depression/anxiety will resume home meds -- DVT prophylaxis Patient placed on subcutaneous heparin. --Full code status Daily course: 03/19: HIDA scan positive for biliary dyskinesia - consult GS. EGD was essentially normal. keep npo after midnight 03/20: Patient was planned for cholecystectomy but postponed due to severe hypokalemia -k 2.9. Magnesium level normal, continue to replete potassium, BMP tomorrow a.m. n.p.o. after midnight for possible cholecystectomy. 03/21: K level still 2.8. Patient doesnot tolerate iv Kcl. Continue to replete k orally and with NS. pending laparoscopic cholecystectomy. Follow clinically. 03/22: Keep NPO today, hypokalemia is improved. Anticipate surgery today or tomorrow, will await surgical input. Adjust insulin. Hospitalist Physical - Physical exam Narrative exam: General appearance: Present: no acute distress, well-nourished - EENT Eyes: Present: PERRL, EOM intact. Absent: scleral icterus ENT: hearing intact, clear oral mucosa, dentition normal - Neck Neck: Present: supple, normal ROM - Respiratory Respiratory effort: normal Respiratory: bilateral: CTA - Cardiovascular Rhythm: regular Heart Sounds: Present: S1 & S2. Absent: gallop, systolic murmur, diastolic murmur, rub, click - Extremities Extremities: no ischemia, pulses intact, pulses symmetrical, No edema, normal temperature, normal color, Full ROM Peripheral Pulses: within normal limits - Abdominal General gastrointestinal: Present: soft, mild tender, non-distended, normal bowel sounds. Absent: mass - Integumentary Integumentary: Present: clear, warm, dry. Absent: rash - Musculoskeletal Musculoskeletal: strength equal bilaterally - Psychiatric Psychiatric: appropriate mood/affect, intact judgment & insight, memory intact, cooperative - Neurologic Neurologic: CNII-XII intact, no focal deficits, moves all extremities - Constitutional Vitals: Temp Pulse Resp BP Pulse Ox 97.6 F 87 18 153/89 98 03/22/20 04:22 03/22/20 04:22 03/22/20 04:22 03/22/20 04:22 03/22/20 04:22 General appearance: Present: no acute distress, well-nourished Results - Labs CBC & Chem 7: 03/20/20 09:39 03/22/20 05:29 Labs: Laboratory Last Values WBC 4.5 K/mm3 (4.5-11.0) 03/20/20 09:39 RBC 4.06 M/mm3 (3.65-5.03) 03/20/20 09:39 Hgb 13.0 gm/dl (10.1-14.3) 03/20/20 09:39 Hct 34.6 % (30.3-42.9) 03/20/20 09:39 MCV 85 fl (79-97) 03/20/20 09:39 MCH 32 pg (28-32) 03/20/20 09:39 MCHC 38 % (30-34) H* 03/20/20 09:39 RDW 13.5 % (13.2-15.2) 03/20/20 09:39 Plt Count 223 K/mm3 (140-440) 03/20/20 09:39 Lymph % (Auto) 26.8 % (13.4-35.0) 03/20/20 09:39 [place] % (Auto) 7.2 % (0.0-7.3) 03/20/20 09:39 Eos % (Auto) 1.5 % (0.0-4.3) 03/20/20 09:39 Baso % (Auto) 1.0 % (0.0-1.8) 03/20/20 09:39 Lymph # (Auto) 1.2 K/mm3 (1.2-5.4) 03/20/20 09:39 [place] # (Auto) 0.3 K/mm3 (0.0-0.8) 03/20/20 09:39 Eos # (Auto) 0.1 K/mm3 (0.0-0.4) 03/20/20 09:39 Baso # (Auto) 0.0 K/mm3 (0.0-0.1) 03/20/20 09:39 Add Manual Diff Complete 03/20/20 09:39 Total Counted 51 03/20/20 09:39 Seg Neutrophils % 63.5 % (40.0-70.0) 03/20/20 09:39 Seg Neuts % (Manual) 78.4 % (40.0-70.0) H 03/20/20 09:39 Band Neutrophils % 2.0 % 03/20/20 09:39 Lymphocytes % (Manual) 7.8 % (13.4-35.0) L 03/20/20 09:39 Reactive Lymphs % (Man) Cancelled 03/18/20 00:36 Monocytes % (Manual) 11.8 % (0.0-7.3) H 03/20/20 09:39 Eosinophils % (Manual) Cancelled 03/18/20 00:36 Basophils % (Manual) Cancelled 03/18/20 00:36 Metamyelocytes % Cancelled 03/18/20 00:36 Myelocytes % Cancelled 03/18/20 00:36 Promyelocytes % Cancelled 03/18/20 00:36 Blast Cells % Cancelled 03/18/20 00:36 Nucleated RBC % Not Reportable 03/20/20 09:39 Seg Neutrophils # 2.9 K/mm3 (1.8-7.7) 03/20/20 09:39 Seg Neutrophils # Man 3.5 K/mm3 (1.8-7.7) 03/20/20 09:39 Band Neutrophils # 0.1 K/mm3 03/20/20 09:39 Lymphocytes # (Manual) 0.4 K/mm3 (1.2-5.4) L 03/20/20 09:39 Abs React Lymphs (Man) 0.0 K/mm3 03/20/20 09:39 Monocytes # (Manual) 0.5 K/mm3 (0.0-0.8) 03/20/20 09:39 Eosinophils # (Manual) 0.0 K/mm3 (0.0-0.4) 03/20/20 09:39 Basophils # (Manual) 0.0 K/mm3 (0.0-0.1) 03/20/20 09:39 Metamyelocytes # 0.0 K/mm3 03/20/20 09:39 Myelocytes # 0.0 K/mm3 03/20/20 09:39 Promyelocytes # 0.0 K/mm3 03/20/20 09:39 Blast Cells # 0.0 K/mm3 03/20/20 09:39 WBC Morphology Not Reportable 03/20/20 09:39 Hypersegmented Neuts Not Reportable 03/20/20 09:39 Hyposegmented Neuts Not Reportable 03/20/20 09:39 Hypogranular Neuts Not Reportable 03/20/20 09:39 Hypersegmented Polys Cancelled 03/18/20 00:36 Smudge Cells Not Reportable 03/20/20 09:39 Toxic Granulation Not Reportable 03/20/20 09:39 Toxic Vacuolation Not Reportable 03/20/20 09:39 Dohle Bodies Not Reportable 03/20/20 09:39 Pelger-Huet Anomaly Not Reportable 03/20/20 09:39 Jimena Rods Not Reportable 03/20/20 09:39 Platelet Estimate Consistent w auto 03/20/20 09:39 Clumped Platelets Not Reportable 03/20/20 09:39 Plt Clumps, EDTA Not Reportable 03/20/20 09:39 Large Platelets Not Reportable 03/20/20 09:39 Giant Platelets Not Reportable 03/20/20 09:39 Platelet Satelliting Not Reportable 03/20/20 09:39 Plt Morphology Comment Not Reportable 03/20/20 09:39 RBC Morphology Normal 03/20/20 09:39 Dimorphic RBCs Not Reportable 03/20/20 09:39 Polychromasia Not Reportable 03/20/20 09:39 Hypochromasia Not Reportable 03/20/20 09:39 Poikilocytosis Not Reportable 03/20/20 09:39 Basophilic Stippling Cancelled 03/18/20 00:36 Anisocytosis Not Reportable 03/20/20 09:39 Microcytosis Not Reportable 03/20/20 09:39 Macrocytosis Not Reportable 03/20/20 09:39 Spherocytes Not Reportable 03/20/20 09:39 Pappenheimer Bodies Not Reportable 03/20/20 09:39 Sickle Cells Not Reportable 03/20/20 09:39 Target Cells Not Reportable 03/20/20 09:39 Tear Drop Cells Not Reportable 03/20/20 09:39 Ovalocytes Not Reportable 03/20/20 09:39 Stomatocytes Cancelled 03/18/20 00:36 Helmet Cells Not Reportable 03/20/20 09:39 [place] Bodies Not Reportable 03/20/20 09:39 [place] Rings Not Reportable 03/20/20 09:39 [place] Cells Not Reportable 03/20/20 09:39 Bite Cells Not Reportable 03/20/20 09:39 Crenated Cell Not Reportable 03/20/20 09:39 Elliptocytes Not Reportable 03/20/20 09:39 Acanthocytes (Spur) Not Reportable 03/20/20 09:39 Rouleaux Not Reportable 03/20/20 09:39 Hemoglobin C Crystals Not Reportable 03/20/20 09:39 Schistocytes Not Reportable 03/20/20 09:39 Malaria parasites Not Reportable 03/20/20 09:39 [place] Bodies Not Reportable 03/20/20 09:39 Hem Pathologist Commnt No 03/20/20 09:39 PT 11.8 Sec. (12.2-14.9) L 03/19/20 05:01 INR 0.88 (0.87-1.13) 03/19/20 05:01 Sodium 132 mmol/L (137-145) L 03/22/20 05:29 Potassium 3.9 mmol/L (3.6-5.0) D 03/22/20 05:29 Chloride 95.2 mmol/L (98-107) L 03/22/20 05:29 Carbon Dioxide 28 mmol/L (22-30) 03/22/20 05:29 Anion Gap 13 mmol/L 03/22/20 05:29 BUN 6 mg/dL (7-17) L 03/22/20 05:29 Creatinine 0.4 mg/dL (0.6-1.2) L 03/22/20 05:29 Estimated GFR > 60 ml/min 03/22/20 05:29 BUN/Creatinine Ratio 15 % 03/22/20 05:29 Glucose 255 mg/dL (65-100) H 03/22/20 05:29 POC Glucose 368 mg/dL (70-105) H 03/21/20 21:48 Hemoglobin A1c 9.9 % (4-6) H 03/21/20 18:25 Calcium 9.1 mg/dL (8.4-10.2) 03/22/20 05:29 Phosphorus 2.50 mg/dL (2.5-4.5) 03/21/20 Unknown Magnesium 1.90 mg/dL (1.7-2.3) 03/21/20 Unknown Total Bilirubin 0.30 mg/dL (0.1-1.2) 03/20/20 09:39 AST < 5 units/L (5-40) L 03/20/20 09:39 ALT < 5 units/L (7-56) L 03/20/20 09:39 Alkaline Phosphatase 76 units/L (35-129) 03/20/20 09:39 Total Protein 6.7 g/dL (6.3-8.2) 03/20/20 09:39 Albumin 3.6 g/dL (3.9-5) L 03/20/20 09:39 Albumin/Globulin Ratio 1.2 % 03/20/20 09:39 Lipase 43 units/L (13-60) 03/18/20 00:36 Urine Color Yellow (Yellow) 03/18/20 Unknown Urine Turbidity Cloudy (Clear) 03/18/20 Unknown Urine pH 5.0 (5.0-7.0) 03/18/20 Unknown Ur Specific [place] 1.037 (1.003-1.030) H 03/18/20 Unknown Urine Protein >500 mg/dL (Negative) 03/18/20 Unknown Urine Glucose (UA) >=500 mg/dL (Negative) 03/18/20 Unknown Urine Ketones Neg mg/dL (Negative) 03/18/20 Unknown Urine Blood Neg (Negative) 03/18/20 Unknown Urine Nitrite Neg (Negative) 03/18/20 Unknown Urine Bilirubin Sm (Negative) 03/18/20 Unknown Urine Ictotest Not Reportable 03/18/20 Unknown Urine Urobilinogen < 2.0 mg/dL (<2.0) 03/18/20 Unknown Ur Leukocyte Esterase Tr (Negative) 03/18/20 Unknown Urine WBC (Auto) 156.0 /HPF (0.0-6.0) H 03/18/20 Unknown Urine RBC (Auto) 6.0 /HPF (0.0-6.0) 03/18/20 Unknown U Epithel Cells (Auto) 1.0 /HPF (0-13.0) 03/18/20 Unknown Urine Bacteria (Auto) 2+ /HPF (Negative) 03/18/20 Unknown Urine Mucus 2+ /HPF 03/18/20 Unknown Urine Yeast (Budding) Few /HPF 03/18/20 Unknown Urine Sperm Few /HPF (DRIVE TESTER) 03/18/20 Unknown [place]/IV: Voiding Method Toilet Active Medications - Current Medications Current Medications: Generic Name Dose Route Start Last Admin Trade Name Freq PRN Reason Stop Dose Admin Acetaminophen 650 mg 03/18/20 04:52 03/19/20 15:56 Acetaminophen 325 Mg Tab PO 650 mg Q4H PRN Administration Pain MILD(1-3)/Fever >100.5/JACKSON Amlodipine Besylate 10 mg 03/21/20 17:00 03/21/20 17:25 Amlodipine 10 Mg Tab PO 10 mg DAILY GUDELIA Administration Buspirone HCl 5 mg 03/22/20 10:00 Buspirone 5 Mg Tab PO DAILY GUDELIA Dextrose 0 ml 03/18/20 04:52 Dextrose 50% In Water (25gm) 50 Ml Syringe IV Q30MIN PRN Hypoglycemia Protocol Duloxetine HCl 60 mg 03/22/20 10:00 Duloxetine 30 Mg Cap PO QDAY GUDELIA Heparin Sodium (Porcine) 5,000 unit 03/18/20 06:00 03/21/20 22:20 Heparin 5,000 Unit/1 Ml Vial SUB-Q 5,000 unit Q8HR GUDELIA Administration Ceftriaxone Sodium 1 gm in 50 mls @ 100 mls/hr 03/18/20 06:00 03/22/20 06:56 Rocephin/Ns 1 Gm/50 Ml IV 03/24/20 06:29 100 mls/hr Q24H GUDELIA Administration Protocol Potassium Chloride 30 meq/ 1,015 mls @ 75 mls/hr 03/21/20 12:00 03/22/20 03:56 Sodium Chloride IV 75 mls/hr DIRECT GUDELIA Administration Insulin Human Lispro 0 unit 03/18/20 07:30 03/21/20 23:10 Insulin Lispro 100 Unit/Ml SUB-Q 5 unit ACHS GUDELIA Administration Protocol Magnesium Hydroxide 30 ml 03/18/20 04:52 Magnesium Hydroxide (Mom) Oral Liqd Udc PO Q4H PRN Constipation Metoprolol Succinate 50 mg 03/21/20 17:00 03/21/20 17:25 Metoprolol Succinate Xl 50 Mg Tab PO 50 mg QDAY GUDELIA Administration Ondansetron HCl 4 mg 03/18/20 04:52 03/20/20 18:07 Ondansetron 4 Mg/2 Ml Inj IV 4 mg Q8H PRN Administration Nausea And Vomiting Pantoprazole Sodium 40 mg 03/18/20 10:00 03/21/20 22:19 Pantoprazole 40 Mg Tab PO 40 mg BID GUDELIA Administration Potassium Chloride 30 meq 03/22/20 10:00 Potassium Chloride Er 10 Meq Tab PO QDAY GUDELIA Sodium Chloride 10 ml 03/18/20 10:00 03/21/20 22:24 Sodium Chloride 0.9% 10 Ml Flush Syringe IV 10 ml BID GUDELIA Administration Sodium Chloride 10 ml 03/18/20 04:52 Sodium Chloride 0.9% 10 Ml Flush Syringe IV PRN PRN LINE FLUSH Nutrition/Malnutrition Assess - Dietary Evaluation Nutrition/Malnutrition Findings: Nutrition Notes Start: 03/18/20 12:15 Freq: Status: Active Protocol: Document 03/20/20 11:12 CW (Rec: 03/20/20 11:20 [id number]) Nutrition Notes Initial or Follow up Reassessment Current Diagnosis Diabetes,Hypertension Other Pertinent Diagnosis GERD, HUNTER, fibromyalgia, UTI Current Diet NPO Labs/Tests BP 167/82 Na 131 K 2.9 BG 252 Pertinent Medications Humalog KCl 10 mEq in 100ml/h KDUR Propofol Height 5 ft 3 in Weight 65 kg [place] Body Weight (kg) 52.27 BMI 25.4 Weight change and time frame 7% weight loss in 1 year Weight Status Overweight Subjective/Other Information F/U for diet advancment/ PO intake/ ONS intake. Surgery cancelled this morning. Consulted with nurse regarding diet upgrade and RN stated that diet would likely be reinstated. Pt denies N/V/D/C. States having an appetite. Percent of energy/protein needs met: 0%/0% Burn Absent Trauma Absent GI Symptoms None Current % PO Negligible Minimum of two criteria No physical signs of malnutrition #1 Nutrition Diagnosis Inadequate energy intake Etiology NPO As Evidenced by Signs and Symptoms pt NPO d/t abd surgery Diagnosis Progress(for reassessment Worsened documentation) Is patient on ventilator? No Is Patient Ambulatory and/or Out of Bed Yes REE-([facility]-ambulatory/OOB) [ 1597.869 [id number]] Calculation Used for Recommendations [facility] Additional Notes Protein: 52-65g (0.8-1g/kg) Fluid: 1 ml/kcal Nutrition Intervention Change Diet Order: Advance as medically feasable Add Supplement/Snack (indicate name/kcal Ensure Clear TID /protein ) Provides kCal: 720 Provides Protein (gm) 24 Goal #1 Diet advancement as medically feasible Anticipated Discharge Needs: Unable to determine at this time Follow-Up By: 03/22/20 Additional Comments FU for diet advancement
[2020-03-22] MEDS: INSULIN LISPRO 100 UNIT/ML SUB-Q SCH ×4 (08:41→22:19)
[2020-03-22] MEDS: HEPARIN 5,000 UNIT/1 ML VIAL SUB-Q SCH ×3 (08:41→22:18)
[2020-03-22] MEDS ORDERED: BUPIVACAINE/PF (0.25%) 2.5 MG/ML 30 ML VIAL INFILTRATI ONE ×3 (09:03→11:18)
[2020-03-22] MEDS: METOPROLOL SUCCINATE XL 50 MG TAB PO SCH (09:28)
[2020-03-22] MEDS: amLODIPine 10 MG TAB PO SCH (09:28)
[2020-03-22] MEDS: ONDANSETRON 4 MG/2 ML INJ IV PRN ×2 (09:31→16:50)
[2020-03-22] MEDS ORDERED: ceFAZolin/STERILE WATER 2 GM/20 ML SYRINGE IV NR (10:13)
[2020-03-22] MEDS ORDERED: ONDANSETRON 4 MG/2 ML INJ IV PRN (10:13)
--- NOTE | 2020-03-22 10:14 | Anesthesia Day of Surgery ---
Anesthesia Day of Surgery - Day of Surgery Patient Examined: Yes Patient H&P Reviewed: Yes Patient is NPO: Yes
[2020-03-22] MEDS ORDERED: LACTATED RINGERS 1,000 ML IV SCH (10:15)
--- NOTE | 2020-03-22 10:20 | Progress Note ---
Assessment and Plan - Patient Problems (1) Biliary dyskinesia Current Visit: Yes Status: Acute (2) Hypokalemia Current Visit: Yes Status: Acute Plan to address problem: 1) Lap rajni for today cancelled b/o hypokalemia. 2) Replete K+ 3) Lap rajni tomorrow if K+ is improved. 4) NPO after MN Subjective Date of service: 03/21/20 Patient Reports: Positive: no new complaints Objective Vital Signs - 12hr 03/22/20 03/22/20 00:15 04:22 Temperature 99.9 F H 97.6 F Pulse Rate 97 H 87 Respiratory 17 18 Rate Blood Pressure 152/75 153/89 O2 Sat by Pulse 97 98 Oximetry - Abdomen PM_[id number]_[id number] 4, PM_46_EXABD1 6, PM_46_EXABD1 8 Hernia: none - Labs 03/20/20 09:39 03/22/20 05:29 Diabetes panel 03/21/20 03/22/20 Range/Units 18:25 05:29 Sodium 132 L (137-145) mmol/L Potassium 3.9 D (3.6-5.0) mmol/L Chloride 95.2 L (98-107) mmol/L Carbon Dioxide 28 (22-30) mmol/L BUN 6 L (7-17) mg/dL Creatinine 0.4 L (0.6-1.2) mg/dL Glucose 255 H (65-100) mg/dL Hemoglobin A1c 9.9 H (4-6) % Calcium 9.1 (8.4-10.2) mg/dL Calcium panel 03/22/20 Range/Units 05:29 Calcium 9.1 (8.4-10.2) mg/dL Pituitary panel 03/22/20 Range/Units 05:29 Sodium 132 L (137-145) mmol/L Potassium 3.9 D (3.6-5.0) mmol/L Chloride 95.2 L (98-107) mmol/L Carbon Dioxide 28 (22-30) mmol/L BUN 6 L (7-17) mg/dL Creatinine 0.4 L (0.6-1.2) mg/dL Glucose 255 H (65-100) mg/dL Calcium 9.1 (8.4-10.2) mg/dL Adrenal panel 02/12/21 Range/Units 05:29 Sodium 132 L (137-145) mmol/L Potassium 3.9 D (3.6-5.0) mmol/L Chloride 95.2 L (98-107) mmol/L Carbon Dioxide 28 (22-30) mmol/L BUN 6 L (7-17) mg/dL Creatinine 0.4 L (0.6-1.2) mg/dL Glucose 255 H (65-100) mg/dL Calcium 9.1 (8.4-10.2) mg/dL K+ today is down to 2.8.
[2020-03-22] MEDS ORDERED: NEOSTIGMINE 10MG/10 ML INJ MDV ONE (10:39)
[2020-03-22] MEDS ORDERED: ROCURONIUM 50 MG/5 ML INJ IV ONE (10:39)
[2020-03-22] MEDS ORDERED: dexAMETHasone 20 MG/5 ML VIAL ONE (10:39)
[2020-03-22] MEDS ORDERED: PHENYLEPHRINE/NS 1,000 MCG/10 ML SYRINGE (OR USE) IV ONE (10:39)
[2020-03-22] MEDS ORDERED: propofoL 200 MG/20 ML VIAL IV ONE (10:39)
[2020-03-22] MEDS ORDERED: ONDANSETRON 4 MG/2 ML INJ ONE (10:39)
[2020-03-22] MEDS ORDERED: GLYCOPYRROLATE 0.4 MG/2 ML INJ ONE (10:39)
[2020-03-22] MEDS ORDERED: SUCCINYLCHOLINE CHLORIDE 200 MG/10 ML INJ MDV ONE (10:39)
[2020-03-22] MEDS ORDERED: LIDOCAINE MPF (2%) 20 MG/1 ML VIAL 5 ML ONE (10:39)
[2020-03-22] MEDS ORDERED: fentaNYL 100 MCG/2 ML INJ ONE ×3 (10:39→11:30)
[2020-03-22] MEDS ORDERED: SCOPOLAMINE TRANSDERMAL PATCH 72 HR TD NR (11:00)
[2020-03-22] MEDS ORDERED: MIDAZOLAM 2 MG/2 ML INJ IV NR (11:00)
[2020-03-22] MEDS ORDERED: SODIUM CHLORIDE 0.9% IRR 1,000 ML BOTTLE IR ONE (11:18)
[2020-03-22] MEDS ORDERED: SODIUM CHLORIDE 0.9% IRRIG SOLN 2000 ML IR ONE (11:18)
--- NOTE | 2020-03-22 12:24 | Procedure Note ---
Date of procedure: 03/22/20 Pre-op diagnosis: Biliary dyskinesia Post-op diagnosis: same Procedure: Laparoscopic cholecystectomy Anesthesia: LORENZO Surgeon: GERMÁN ACOSTA Estimated blood loss: minimal Pathology: list (Gallbladder) Specimen disposition: to lab Condition: stable Disposition: PACU
[2020-03-22] MEDS: HYDROmorphone 1 MG/1 ML INJ IV PRN ×2 (13:14→16:49)
[2020-03-22] MEDS ORDERED: INSULIN LISPRO 100 UNIT/ML SUB-Q ONE ×2 (13:50→14:01)
[2020-03-22] MEDS ORDERED: KETOROLAC 30 MG/1 ML INJ IV ONE (14:03)
[2020-03-22] MEDS: busPIRone 5 MG TAB PO SCH (20:43)
[2020-03-22] MEDS: DULoxetine 30 MG CAP PO SCH (20:43)
[2020-03-22] MEDS: PANTOPRAZOLE 40 MG TAB PO SCH ×2 (20:44→22:18)
[2020-03-22] MEDS: ACETAMINOPHEN 325 MG TAB PO PRN (22:17)
[2020-03-22] MEDS: POTASSIUM CHLORIDE ER 10 MEQ TAB PO SCH (22:19)
[2020-03-23] MEDS: HYDROmorphone 1 MG/1 ML INJ IV PRN ×3 (00:02→23:00)
[2020-03-23] MEDS: ONDANSETRON 4 MG/2 ML INJ IV PRN ×2 (05:51→13:55)
[2020-03-23] MEDS: HEPARIN 5,000 UNIT/1 ML VIAL SUB-Q SCH (05:51)
[2020-03-23] MEDS: cefTRIAXone/NS 1 GM/50 ML 1 GM/50 ML BAG IV SCH (05:51)
[2020-03-23] MEDS: oxyCODONE /ACETAMINOPHEN 5-325MG TAB PO PRN ×2 (08:36→16:31)
[2020-03-23] MEDS: METOPROLOL SUCCINATE XL 50 MG TAB PO SCH (11:02)
[2020-03-23] MEDS: PANTOPRAZOLE 40 MG TAB PO SCH ×2 (11:02→22:54)
[2020-03-23] MEDS: amLODIPine 10 MG TAB PO SCH (11:02)
[2020-03-23] MEDS: busPIRone 5 MG TAB PO SCH (11:03)
[2020-03-23] MEDS: POTASSIUM CHLORIDE ER 10 MEQ TAB PO SCH (11:03)
[2020-03-23] MEDS: INSULIN GLARGINE 100 UNITS/ML SUB-Q SCH (11:04)
[2020-03-23] MEDS: INSULIN LISPRO 100 UNIT/ML SUB-Q SCH ×4 (11:07→22:53)
[2020-03-23] MEDS: DULoxetine 30 MG CAP PO SCH (11:10)
--- NOTE | 2020-03-23 12:09 | Progress Note ---
Assessment and Plan Assessment and plan: 54-year-old female with known history of hypertension, diabetes mellitus, GERD, history of HUNTER(nonalcoholic steatohepatitis) presenting to the emergency room complaining of abdominal pain. Work-up in the emergency room today, CT scan of the abdomen and pelvis reveals:1. No inflammatory process or bowel obstruction. 2. Hepatomegaly with hepatic steatosis, unchanged. Labs reveals a hyponatremia and urinalysis reveals a UTI. Patient was admitted for abdominal pain, hyponatremia and a UTI. -- Acute abdominal pain, due to biliary dyskinesia s/p EGD without any acute findings HIDA scan showed biliary dyskinesia - surgery consulted for cholecystectomy now s/p lapaoscopic cholecystectomy on 03/22 -- Hyponatremia trend sodium --Hypokalemia - replete PRN -- UTI (urinary tract infection) Antibiotics --HTN, uncontrolled Resumed home meds, follow clinically --h/o depression/anxiety Continue home meds -- DVT prophylaxis Requests for discontinuation of heparin --Full code status History Interval history: Daily course: 03/19: HIDA scan positive for biliary dyskinesia - consult GS. EGD was essentially normal. keep npo after midnight 03/20: Patient was planned for cholecystectomy but postponed due to severe hypokalemia -k 2.9. Magnesium level normal, continue to replete potassium, BMP tomorrow a.m. n.p.o. after midnight for possible cholecystectomy. 03/21: K level still 2.8. Patient doesnot tolerate iv Kcl. Continue to replete k orally and with NS. pending laparoscopic cholecystectomy. Follow clinically. 03/22: Keep NPO today, hypokalemia is improved. Anticipate surgery today or tomorrow, will await surgical input. Adjust insulin. 03/23. Now s/p laparascopic cholecystectomy. On liquid diet and tolerating. Nick roseanne to see. Plan to advance diet today Hospitalist Physical - Physical exam Narrative exam: VITAL SIGNS: Reviewed. GENERAL: Awake HEAD: No signs of head trauma. EYES: Pupils are equal. Extraocular motions intact. MOUTH: Oropharynx is normal. NECK: No adenopathy, no JVD. CHEST: Chest with diminished breath sounds bilaterally. No wheezes, rales, or rhonchi. CARDIAC: normal S1 and S2, without murmurs, gallops, or rubs. ABDOMEN: Soft, BS+ MUSCULOSKELETAL: No edema NEUROLOGIC EXAM: Alert and oriented x3. No focal neurologic deficits SKIN: No obvious lesions - Constitutional Vitals: Temp Pulse Resp BP Pulse Ox 97.3 F L 102 H 16 151/89 95 03/23/20 09:37 03/23/20 09:37 03/23/20 05:50 03/23/20 09:37 03/23/20 09:37 Results - Labs CBC & Chem 7: 03/20/20 09:39 03/22/20 05:29 Labs: Laboratory Last Values WBC 4.5 K/mm3 (4.5-11.0) 03/20/20 09:39 RBC 4.06 M/mm3 (3.65-5.03) 03/20/20 09:39 Hgb 13.0 gm/dl (10.1-14.3) 03/20/20 09:39 Hct 34.6 % (30.3-42.9) 03/20/20 09:39 MCV 85 fl (79-97) 03/20/20 09:39 MCH 32 pg (28-32) 03/20/20 09:39 MCHC 38 % (30-34) H* 03/20/20 09:39 RDW 13.5 % (13.2-15.2) 03/20/20 09:39 Plt Count 223 K/mm3 (140-440) 03/20/20 09:39 Lymph % (Auto) 26.8 % (13.4-35.0) 03/20/20 09:39 [place] % (Auto) 7.2 % (0.0-7.3) 03/20/20 09:39 Eos % (Auto) 1.5 % (0.0-4.3) 03/20/20 09:39 Baso % (Auto) 1.0 % (0.0-1.8) 03/20/20 09:39 Lymph # (Auto) 1.2 K/mm3 (1.2-5.4) 03/20/20 09:39 [place] # (Auto) 0.3 K/mm3 (0.0-0.8) 03/20/20 09:39 Eos # (Auto) 0.1 K/mm3 (0.0-0.4) 03/20/20 09:39 Baso # (Auto) 0.0 K/mm3 (0.0-0.1) 03/20/20 09:39 Add Manual Diff Complete 03/20/20 09:39 Total Counted 51 03/20/20 09:39 Seg Neutrophils % 63.5 % (40.0-70.0) 03/20/20 09:39 Seg Neuts % (Manual) 78.4 % (40.0-70.0) H 03/20/20 09:39 Band Neutrophils % 2.0 % 03/20/20 09:39 Lymphocytes % (Manual) 7.8 % (13.4-35.0) L 03/20/20 09:39 Reactive Lymphs % (Man) Cancelled 03/18/20 00:36 Monocytes % (Manual) 11.8 % (0.0-7.3) H 03/20/20 09:39 Eosinophils % (Manual) Cancelled 03/18/20 00:36 Basophils % (Manual) Cancelled 03/18/20 00:36 Metamyelocytes % Cancelled 03/18/20 00:36 Myelocytes % Cancelled 03/18/20 00:36 Promyelocytes % Cancelled 03/18/20 00:36 Blast Cells % Cancelled 03/18/20 00:36 Nucleated RBC % Not Reportable 03/20/20 09:39 Seg Neutrophils # 2.9 K/mm3 (1.8-7.7) 03/20/20 09:39 Seg Neutrophils # Man 3.5 K/mm3 (1.8-7.7) 03/20/20 09:39 Band Neutrophils # 0.1 K/mm3 03/20/20 09:39 Lymphocytes # (Manual) 0.4 K/mm3 (1.2-5.4) L 03/20/20 09:39 Abs React Lymphs (Man) 0.0 K/mm3 03/20/20 09:39 Monocytes # (Manual) 0.5 K/mm3 (0.0-0.8) 03/20/20 09:39 Eosinophils # (Manual) 0.0 K/mm3 (0.0-0.4) 03/20/20 09:39 Basophils # (Manual) 0.0 K/mm3 (0.0-0.1) 03/20/20 09:39 Metamyelocytes # 0.0 K/mm3 03/20/20 09:39 Myelocytes # 0.0 K/mm3 03/20/20 09:39 Promyelocytes # 0.0 K/mm3 03/20/20 09:39 Blast Cells # 0.0 K/mm3 03/20/20 09:39 WBC Morphology Not Reportable 03/20/20 09:39 Hypersegmented Neuts Not Reportable 03/20/20 09:39 Hyposegmented Neuts Not Reportable 03/20/20 09:39 Hypogranular Neuts Not Reportable 03/20/20 09:39 Hypersegmented Polys Cancelled 03/18/20 00:36 Smudge Cells Not Reportable 03/20/20 09:39 Toxic Granulation Not Reportable 03/20/20 09:39 Toxic Vacuolation Not Reportable 03/20/20 09:39 Dohle Bodies Not Reportable 03/20/20 09:39 Pelger-Huet Anomaly Not Reportable 03/20/20 09:39 Jimena Rods Not Reportable 03/20/20 09:39 Platelet Estimate Consistent w auto 03/20/20 09:39 Clumped Platelets Not Reportable 03/20/20 09:39 Plt Clumps, EDTA Not Reportable 03/20/20 09:39 Large Platelets Not Reportable 03/20/20 09:39 Giant Platelets Not Reportable 03/20/20 09:39 Platelet Satelliting Not Reportable 03/20/20 09:39 Plt Morphology Comment Not Reportable 03/20/20 09:39 RBC Morphology Normal 03/20/20 09:39 Dimorphic RBCs Not Reportable 03/20/20 09:39 Polychromasia Not Reportable 03/20/20 09:39 Hypochromasia Not Reportable 03/20/20 09:39 Poikilocytosis Not Reportable 03/20/20 09:39 Basophilic Stippling Cancelled 03/18/20 00:36 Anisocytosis Not Reportable 03/20/20 09:39 Microcytosis Not Reportable 03/20/20 09:39 Macrocytosis Not Reportable 03/20/20 09:39 Spherocytes Not Reportable 03/20/20 09:39 Pappenheimer Bodies Not Reportable 03/20/20 09:39 Sickle Cells Not Reportable 03/20/20 09:39 Target Cells Not Reportable 03/20/20 09:39 Tear Drop Cells Not Reportable 03/20/20 09:39 Ovalocytes Not Reportable 03/20/20 09:39 Stomatocytes Cancelled 03/18/20 00:36 Helmet Cells Not Reportable 03/20/20 09:39 Oliveira-Bruce Bodies Not Reportable 03/20/20 09:39 [place] Rings Not Reportable 03/20/20 09:39 Ervin Cells Not Reportable 03/20/20 09:39 Bite Cells Not Reportable 03/20/20 09:39 Crenated Cell Not Reportable 03/20/20 09:39 Elliptocytes Not Reportable 03/20/20 09:39 Acanthocytes (Spur) Not Reportable 03/20/20 09:39 Rouleaux Not Reportable 03/20/20 09:39 Hemoglobin C Crystals Not Reportable 03/20/20 09:39 Schistocytes Not Reportable 03/20/20 09:39 Malaria parasites Not Reportable 03/20/20 09:39 Chetan Bodies Not Reportable 03/20/20 09:39 Hem Pathologist Commnt No 03/20/20 09:39 PT 11.8 Sec. (12.2-14.9) L 03/19/20 05:01 INR 0.88 (0.87-1.13) 03/19/20 05:01 Sodium 132 mmol/L (137-145) L 03/22/20 05:29 Potassium 3.9 mmol/L (3.6-5.0) D 03/22/20 05:29 Chloride 95.2 mmol/L (98-107) L 03/22/20 05:29 Carbon Dioxide 28 mmol/L (22-30) 03/22/20 05:29 Anion Gap 13 mmol/L 03/22/20 05:29 BUN 6 mg/dL (7-17) L 03/22/20 05:29 Creatinine 0.4 mg/dL (0.6-1.2) L 03/22/20 05:29 Estimated GFR > 60 ml/min 03/22/20 05:29 BUN/Creatinine Ratio 15 % 03/22/20 05:29 Glucose 255 mg/dL (65-100) H 03/22/20 05:29 POC Glucose 215 mg/dL (70-105) H 03/23/20 11:53 Hemoglobin A1c 9.9 % (4-6) H 03/21/20 18:25 Calcium 9.1 mg/dL (8.4-10.2) 03/22/20 05:29 Phosphorus 2.50 mg/dL (2.5-4.5) 03/21/20 Unknown Magnesium 1.90 mg/dL (1.7-2.3) 03/21/20 Unknown Total Bilirubin 0.30 mg/dL (0.1-1.2) 03/20/20 09:39 AST < 5 units/L (5-40) L 03/20/20 09:39 ALT < 5 units/L (7-56) L 03/20/20 09:39 Alkaline Phosphatase 76 units/L (35-129) 03/20/20 09:39 Total Protein 6.7 g/dL (6.3-8.2) 03/20/20 09:39 Albumin 3.6 g/dL (3.9-5) L 03/20/20 09:39 Albumin/Globulin Ratio 1.2 % 03/20/20 09:39 Lipase 43 units/L (13-60) 03/18/20 00:36 Urine Color Yellow (Yellow) 03/18/20 Unknown Urine Turbidity Cloudy (Clear) 03/18/20 Unknown Urine pH 5.0 (5.0-7.0) 03/18/20 Unknown Ur Specific [place] 1.037 (1.003-1.030) H 03/18/20 Unknown Urine Protein >500 mg/dL (Negative) 03/18/20 Unknown Urine Glucose (UA) >=500 mg/dL (Negative) 03/18/20 Unknown Urine Ketones Neg mg/dL (Negative) 03/18/20 Unknown Urine Blood Neg (Negative) 03/18/20 Unknown Urine Nitrite Neg (Negative) 03/18/20 Unknown Urine Bilirubin Sm (Negative) 03/18/20 Unknown Urine Ictotest Not Reportable 03/18/20 Unknown Urine Urobilinogen < 2.0 mg/dL (<2.0) 03/18/20 Unknown Ur Leukocyte Esterase Tr (Negative) 03/18/20 Unknown Urine WBC (Auto) 156.0 /HPF (0.0-6.0) H 03/18/20 Unknown Urine RBC (Auto) 6.0 /HPF (0.0-6.0) 03/18/20 Unknown U Epithel Cells (Auto) 1.0 /HPF (0-13.0) 03/18/20 Unknown Urine Bacteria (Auto) 2+ /HPF (Negative) 03/18/20 Unknown Urine Mucus 2+ /HPF 03/18/20 Unknown Urine Yeast (Budding) Few /HPF 03/18/20 Unknown Urine Sperm Few /HPF (ARCHITECTURE INSTRUCTOR) 03/18/20 Unknown Frazier/IV: Voiding Method Bedside Commode Active Medications - Current Medications Current Medications: Generic Name Dose Route Start Last Admin Trade Name Freq PRN Reason Stop Dose Admin Acetaminophen 650 mg 03/18/20 04:52 03/22/20 22:17 Acetaminophen 325 Mg Tab PO 650 mg Q4H PRN Administration Pain MILD(1-3)/Fever >100.5/JACKSON Amlodipine Besylate 10 mg 03/21/20 17:00 03/23/20 11:02 Amlodipine 10 Mg Tab PO 10 mg DAILY GUDELIA Administration Buspirone HCl 5 mg 03/22/20 10:00 03/23/20 11:03 Buspirone 5 Mg Tab PO 5 mg DAILY GUDELIA Administration Dextrose 0 ml 03/18/20 04:52 Dextrose 50% In Water (25gm) 50 Ml Syringe IV Q30MIN PRN Hypoglycemia Protocol Duloxetine HCl 60 mg 03/22/20 10:00 03/23/20 11:10 Duloxetine 30 Mg Cap PO 60 mg QDAY GUDELIA Administration Heparin Sodium (Porcine) 5,000 unit 03/18/20 06:00 03/23/20 05:51 Heparin 5,000 Unit/1 Ml Vial SUB-Q 5,000 unit Q8HR GUDELIA Administration Hydromorphone HCl 0.25 mg 03/22/20 10:13 Hydromorphone 1 Mg/1 Ml Inj IV Q10MIN PRN Pain, Moderate (4-6) Ceftriaxone Sodium 1 gm in 50 mls @ 100 mls/hr 03/18/20 06:00 03/23/20 05:51 Rocephin/Ns 1 Gm/50 Ml IV 03/24/20 06:29 100 mls/hr Q24H GUDELIA Administration Protocol Potassium Chloride 30 meq/ 1,015 mls @ 75 mls/hr 03/21/20 12:00 03/22/20 03:56 Sodium Chloride IV 75 mls/hr DIRECT GUDELIA Administration Insulin Glargine 18 units 03/23/20 10:00 03/23/20 11:04 Insulin Glargine 100 Units/Ml SUB-Q 18 units QAM GUDELIA Administration Insulin Human Lispro 0 unit 03/18/20 07:30 03/23/20 11:07 Insulin Lispro 100 Unit/Ml SUB-Q 3 unit ACHS GUDELIA Administration Protocol Magnesium Hydroxide 30 ml 03/18/20 04:52 Magnesium Hydroxide (Mom) Oral Liqd Udc PO Q4H PRN Constipation Metoprolol Succinate 50 mg 03/21/20 17:00 03/23/20 11:02 Metoprolol Succinate Xl 50 Mg Tab PO 50 mg QDAY GUDELIA Administration Ondansetron HCl 4 mg 03/18/20 04:52 03/23/20 05:51 Ondansetron 4 Mg/2 Ml Inj IV 4 mg Q8H PRN Administration Nausea And Vomiting Oxycodone/Acetaminophen 1 tab 03/23/20 09:00 03/23/20 08:36 Oxycodone /Acetaminophen 5-325mg Tab PO 1 tab Q8H PRN Administration Pain, Moderate (4-6) Pantoprazole Sodium 40 mg 03/18/20 10:00 03/23/20 11:02 Pantoprazole 40 Mg Tab PO 40 mg BID GUDELIA Administration Potassium Chloride 30 meq 03/22/20 10:00 03/23/20 11:03 Potassium Chloride Er 10 Meq Tab PO 30 meq QDAY GUDELIA Administration Sodium Chloride 10 ml 03/18/20 10:00 03/23/20 11:03 Sodium Chloride 0.9% 10 Ml Flush Syringe IV 10 ml BID GUDELIA Administration Sodium Chloride 10 ml 03/18/20 04:52 Sodium Chloride 0.9% 10 Ml Flush Syringe IV PRN PRN LINE FLUSH Nutrition/Malnutrition Assess - Dietary Evaluation Nutrition/Malnutrition Findings: Nutrition Notes Start: 03/18/20 12:15 Freq: Status: Active Protocol: Document 03/22/20 10:26 CW (Rec: 03/22/20 10:30 CW [id number]) Nutrition Notes Initial or Follow up Brief Note Current Diagnosis Diabetes,Hypertension Other Pertinent Diagnosis GERD, HUNTER, fibromyalgia, UTI Current Diet NPO Height 5 ft 3 in Weight 69.9 kg Usual Body Weight 70 kg [place] Body Weight (kg) 52.27 BMI 27.3 Subjective/Other Information F/U for diet advancement. Pt out of room for surgery. Diet had been upgraded since last assessment then downgraded to NPO for surgery. Nutrition Intervention Change Diet Order: Advance as medically feasable Add Supplement/Snack (indicate name/kcal Ensure Clear TID /protein ) Provides kCal: 720 Provides Protein (gm) 24 Goal #1 Diet advancement as medically feasible Anticipated Discharge Needs: Unable to determine at this time Follow-Up By: 03/25/20 Additional Comments FU for diet advancement
[2020-03-23 13:27] LABS: Basophils % (Auto) 0.3 % (0.0-1.8); Eosinophils % (Auto) 0.4 % (0.0-4.3); Hematocrit 35.4 % (30.3-42.9); Hemoglobin 12.6 gm/dl (10.1-14.3); Lymphocytes # (Auto) 2.2 K/mm3 (1.2-5.4); Mean Corpuscular HGB Conc 36 % (30-34); Mean Corpuscular Volume 86 fl (79-97); Monocytes # (Auto) 0.6 K/mm3 (0.0-0.8); Monocytes % (Auto) 6.5 % (0.0-7.3); Platelet Count 265 K/mm3 (140-440); Red Blood Count 4.11 M/mm3 (3.65-5.03); Red Cell Distribution Width 13.7 % (13.2-15.2)
[2020-03-23 13:33] LABS: Alanine Aminotransferase 79 units/L (7-56); Albumin 3.9 g/dL (3.9-5); Blood Urea Nitrogen 9 mg/dL (7-17); Calcium 9.3 mg/dL (8.4-10.2); Hemolysis Index 20
[2020-03-23 13:35] LABS: BUN/Creatinine Ratio 15
--- NOTE | 2020-03-23 14:56 | Discharge Summary ---
Providers - Providers Date of Admission: 03/18/20 04:38 Date of discharge: 03/23/20 Attending physician: BART RINALDI 03/18/20 04:52 Consult to Dietitian/Nutrition [CONS] Routine Physician Instructions: Reason For Exam: Reason for Consult: Diet education Consult to Physician [CONS] Routine Comment: Consulting Provider: VICKEY HURST Physician Instructions: Reason For Exam: Abdominal pain,H/O HUNTER 03/19/20 16:18 Consult to Physician [CONS] Routine Comment: Consulting Provider: MAUREEN PORTILLO Physician Instructions: Reason For Exam: billiary dyskinesia [facility] Condition: Fair Hospital course: HPI --------- 54-year-old female with known history of hypertension, diabetes mellitus, GERD, history of HUNTER(nonalcoholic steatohepatitis) presenting to the emergency room today complaining of abdominal pain. She has been having intermittent abdominal pain for several months and follows up at [facility]. She has had some nausea and vomiting but denies any diarrhea. Patient denies any fever or chills, denies any chest pain or shortness of breath. Abdominal pain is said to be more in the midepigastric region radiating towards the right upper quadrant. Pain radiates towards the back at times. No no relieving or exacerbating factor. She had an ultrasound done on February 29, 2020 we did not reveal any acute abnormalities. She is being considered for possible HIDA scan, colonoscopy and endoscopy. Patient follows up with with [facility]. Patient denies any sick contacts and no recent travel. Denies any contact with anyone with COVID-19. Work-up in the emergency room today, CT scan of the abdomen and pelvis reve als:1. No inflammatory process or bowel obstruction. 2. Hepatomegaly with hepatic steatosis, unchanged. Labs reveals a hyponatremia and urinalysis reveals a UTI. Patient is being admitted for abdominal pain for which she follows up with [facility], hyponatremia and a UTI. Hospital course 03/19: HIDA scan positive for biliary dyskinesia - consult GS. EGD was essentially normal. keep npo after midnight 03/20: Patient was planned for cholecystectomy but postponed due to severe hypokalemia -k 2.9. Magnesium level normal, continue to replete potassium, BMP tomorrow a.m. n.p.o. after midnight for possible cholecystectomy. 03/21: K level still 2.8. Patient doesnot tolerate iv Kcl. Continue to replete k orally and with NS. pending laparoscopic cholecystectomy. Follow clinically. 03/22: Keep NPO today, hypokalemia is improved. Anticipate surgery today or tomorrow, will await surgical input. Adjust insulin. 03/23. Now s/p laparascopic cholecystectomy. On liquid diet and tolerating. S urgery to see. Plan to advance diet today. Patient seen by surgery and is cleared for discharge to complete antibiotics. She will follow up with general surgery. Disposition: [id number]-01 TO HOME OR SELFCARE Time spent for discharge: 35 mins - Discharge Diagnoses (1) Acute abdominal pain Status: Acute (2) Biliary dyskinesia Status: Acute (3) Diabetes mellitus Status: Acute Core Measure Documentation - Palliative Care Palliative Care/ Comfort Measures: Not Applicable - Core Measures Any of the following diagnoses?: none Exam - Physical Exam Narrative exam: VITAL SIGNS: Reviewed. GENERAL: Awake HEAD: No signs of head trauma. EYES: Pupils are equal. Extraocular motions intact. MOUTH: Oropharynx is normal. NECK: No adenopathy, no JVD. CHEST: Chest with diminished breath sounds bilaterally. No wheezes, rales, or rhonchi. CARDIAC: normal S1 and S2, without murmurs, gallops, or rubs. ABDOMEN: Soft, BS+ MUSCULOSKELETAL: No edema NEUROLOGIC EXAM: Alert and oriented x3. No focal neurologic deficits SKIN: No obvious lesions - Constitutional Vitals: Temp Pulse Resp BP Pulse Ox 97.3 F L 97 H 16 151/89 95 03/23/20 09:37 03/23/20 10:00 03/23/20 05:50 03/23/20 09:37 03/23/20 09:37 Plan Activity: no restrictions Diet: low fat, low cholesterol, low salt Additional Instructions: Complete antibiotics in 2 days. Follow up with surgery in 1 week. Follow up with primary medical doctor for a repeat hemoglobin A1c in 3 months. Continue insulin as prescribed. Monitor blood glucose closely Follow up with: GERMÁN ACOSTA MD [Staff Physician] - 7 Days ABIE ARACELI MASON MD [Primary Care Provider] - 3-5 Days Aleja MORRIS MD [Referring] - 7 Days Prescriptions: Cefdinir 300 mg PO BID #4 capsule Losartan [Cozaar] 100 mg PO QDAY 30 Days #30 tablet Flash Glucose Scanning [place] [Freestyle Ibrahima 14 Day [place]] 1 each MC BID #60 each Flash Glucose Sensor [Freestyle Ibrahima 14 Day Sensor] 1 each MC BID #60 each Insulin NPH Hum/Reg Insulin Hm [Novolin 70-30 100 Unit/ml Vial] 12 unit SQ BID 30 Days #5 vial oxyCODONE /ACETAMINOPHEN [Percocet 5/325 mg] 1 tab PO Q8H PRN 2 Days #8 tablet PRN Reason: Pain, Moderate (4-6) Other Discharge Orders: Glucometer (Amb) Location: None Selected Glucometer supplies[Amb] Location: None Selected
[2020-03-23] MEDS ORDERED: POLYETHYLENE GLYCOL 3350 17 GM POWDER PO PRN (22:17)
[2020-03-23] MEDS: DOCUSATE SODIUM 100 MG CAP PO SCH (22:54)
[2020-03-24] MEDS: oxyCODONE /ACETAMINOPHEN 5-325MG TAB PO PRN (02:49)
[2020-03-24] MEDS: ONDANSETRON 4 MG/2 ML INJ IV PRN (03:28)
[2020-03-24] MEDS: HYDROmorphone 1 MG/1 ML INJ IV PRN (06:58)
[2020-03-24] MEDS: cefTRIAXone/NS 1 GM/50 ML 1 GM/50 ML BAG IV SCH (07:01)
[2020-03-24 08:14] VITALS: BP 141/83
[2020-03-24] MEDS: POTASSIUM CHLORIDE ER 10 MEQ TAB PO SCH (09:13)
[2020-03-24] MEDS: DULoxetine 30 MG CAP PO SCH (09:13)
[2020-03-24] MEDS: amLODIPine 10 MG TAB PO SCH (09:13)
[2020-03-24] MEDS: METOPROLOL SUCCINATE XL 50 MG TAB PO SCH (09:14)
[2020-03-24] MEDS: PANTOPRAZOLE 40 MG TAB PO SCH (09:14)
[2020-03-24] MEDS: DOCUSATE SODIUM 100 MG CAP PO SCH (09:14)
[2020-03-24] MEDS: busPIRone 5 MG TAB PO SCH (09:17)
[2020-03-24] MEDS: INSULIN LISPRO 100 UNIT/ML SUB-Q SCH (09:18)
[2020-03-24] MEDS: INSULIN GLARGINE 100 UNITS/ML SUB-Q SCH (09:19)
== END 2020-03-24 11:53 | disposition home or self-care (01) | DRG 418 ==
LOC: ED 23:14 → 4A 03-18 04:38
PROVIDERS: ADMIT Internal Medicine Geriatric Medicine; ATTEND Internal Medicine
PROC: 0DB78ZX Excision of Stomach, Pylorus, Via Natural or Artificial Opening Endoscopic, Diagnostic (ICD-10-PCS; principal; 2020-03-20)
PROC: 0FT44ZZ Resection of Gallbladder, Percutaneous Endoscopic Approach (ICD-10-PCS; 2020-03-22)
DX: K82.8 Other specified diseases of gallbladder (principal); N39.0 Urinary tract infection, site not specified; E87.1 Hypo-osmolality and hyponatremia; K20.90 Esophagitis, unspecified without bleeding; E87.6 Hypokalemia; G43.909 Migraine, unspecified, not intractable, without status migrainosus; F41.8 Other specified anxiety disorders; K21.9 Gastro-esophageal reflux disease without esophagitis; E11.9 Type 2 diabetes mellitus without complications; I10 Essential (primary) hypertension; Z79.899 Other long term (current) drug therapy; Z88.8 Allergy status to other drugs, medicaments and biological substances
CPT/HCPCS: 36415; 72128; 74177; 76705; 78227; 80048; 80053; 81001; 82962; 83036; 83690; 83735; 84100; 85007; 85025; 85027; 85610; 88304; 88305; 88342; 93005; 96361; 96374; 96375; G0378; A4217; A9537; J0330; J0696; J1100; J1170; J1644; J1815; J1885; J2270; J2370; J2405; J2704; J2710; J2805; J3010; J3480; J3490; J7030; J7120; Q9967

== ENCOUNTER 2020-09-08 20:50 | Inpatient (IN) | payer BC ==
[2020-09-08 21:39] LABS: Blood Urea Nitrogen 12 mg/dL (7-17); Calcium 9.8 mg/dL (8.4-10.2); Hemolysis Index 21
[2020-09-08 21:43] LABS: Basophils % (Auto) 0.2 % (0.0-1.8); Eosinophils % (Auto) 0.1 % (0.0-4.3); Lymphocytes % (Auto) 15.9 % (13.4-35.0); Mean Corpuscular HGB Conc 36 % (30-34); Mean Corpuscular Volume 83 fl (79-97); Monocytes # (Auto) 0.4 K/mm3 (0.0-0.8); Monocytes % (Auto) 5.5 % (0.0-7.3); Platelet Count 192 K/mm3 (140-440); Red Blood Count 4.81 M/mm3 (3.65-5.03)
[2020-09-08 21:45] LABS: BUN/Creatinine Ratio 20
[2020-09-08 21:46] LABS: Hematocrit 40.1 % (30.3-42.9); Hemoglobin 14.4 gm/dl (10.1-14.3)
--- NOTE | 2020-09-08 21:49 | XRay Report ---
CHEST PA AND LATERAL VIEWS INDICATION: Weakness. COMPARISON: 06/05/2020 FINDINGS: Support devices: None. Heart: Within normal limits. Lungs/Pleura: Mild patchy airspace opacities have developed bilaterally. No pleural abnormality. IMPRESSION: 1. Mild patchy bilateral airspace opacities are concerning for pneumonia but nonspecific. Radiographi c follow-up is recommended. Signer Name: Eran Cuevas MD Signed: 09/08/2020 9:44 PM Workstation Name: [id number]
[2020-09-08] MEDS ORDERED: dexAMETHasone 4 MG/ML VIAL IV ONE (22:55)
[2020-09-08] MEDS ORDERED: AZITHROMYCIN/NS 500 MG/250 ML 500 MG/250 ML BAG IV ONE (22:55)
[2020-09-08] MEDS ORDERED: ONDANSETRON 4 MG/2 ML INJ IV ONE (22:55)
[2020-09-08] MEDS ORDERED: cefTRIAXone/NS 1 GM/50 ML 1 GM/50 ML BAG IV ONE (22:55)
[2020-09-08] MEDS ORDERED: ACETAMINOPHEN 500 MG TAB PO ONE (22:56)
[2020-09-08] MEDS ORDERED: INSULIN REGULAR, HUMAN 100 UNITS/1 ML IV ONE (22:57)
--- NOTE | 2020-09-08 23:01 | Emergency Department Report ---
ED General Adult HPI - General Chief complaint: Weakness Stated complaint: FEVER,NAUSEA,WEAKNESS,SOB Time Seen by Provider: 09/08/20 22:44 Source: patient Mode of arrival: Ambulatory Limitations: No Limitations - History of Present Illness Initial comments: Patient is 54 years old female with history of hypertension, diabetes and fibromyalgia. Patient presented to the ER complaining of fever, shortness of breath, generalized weakness and nausea and vomiting for the last 2 to 3 days. Patient stated that she is unable to keep anything down. Patient stated that she is fully vaccinated against COVID-19 back in February. - Related Data Home Medications Medication Instructions Recorded Confirmed Last Taken DULoxetine [Cymbalta] 60 mg PO QDAY 03/18/20 09/09/20 09/08/20 Metoprolol [Lopressor TAB] 1 tab PO DAILY 03/18/20 09/09/20 09/08/20 Ondansetron HCl [Zofran] 8 mg PO DAILY 03/18/20 09/09/20 09/09/20 17:40 Pantoprazole [Protonix TAB] 40 mg PO QDAY 03/18/20 09/09/20 09/09/20 17:40 amLODIPine 5 mg PO DAILY 03/18/20 09/09/20 09/08/20 amLODIPine 5 mg PO DAILY 03/18/20 09/09/20 09/08/20 busPIRone [Buspar] 5 mg PO DAILY 03/18/20 09/09/20 09/08/20 Previous Rx's Medication Instructions Recorded Last Taken Type Cefdinir 300 mg PO BID #4 capsule 03/23/20 09/08/20 Rx Insulin NPH Hum/Reg Insulin Hm 12 unit SQ BID 30 Days #5 vial 03/23/20 09/09/20 17:41 Rx [Novolin 70-30 100 Unit/ml Vial] Losartan [Cozaar] 100 mg PO QDAY 30 Days #30 tablet 03/23/20 09/08/20 Rx Flash Glucose Scanning [place] 1 each MC BID #60 each 03/24/20 09/09/20 17:41 Rx [Freestyle [place] 14 Day [place]] Flash Glucose Sensor [Freestyle 1 each MC BID #60 each 03/24/20 09/09/20 17:41 Rx Ibrahima 14 Day Sensor] oxyCODONE /ACETAMINOPHEN [Percocet 1 tab PO Q8H PRN 2 Days #8 tablet 03/24/20 Unknown Rx 5/325 mg] Allergies Allergy/AdvReac Type Severity Reaction Status Date / Time clonidine Allergy Hives Verified 12/25/19 16:59 ED Review of Systems ROS: Stated complaint: FEVER,NAUSEA,WEAKNESS,SOB Other details as noted in HPI Comment: All other systems reviewed and negative Constitutional: chills, fever Respiratory: shortness of breath, SOB with exertion, SOB at rest. denies: cough Cardiovascular: palpitations. denies: chest pain Gastrointestinal: nausea, vomiting. denies: abdominal pain, diarrhea, constipation Musculoskeletal: denies: back pain Neurological: weakness. 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 NO TX NEEDED, C- section x3 - Social History Smoking Status: Never Smoker - Medications Home Medications: Home Medications Medication Instructions Recorded Confirmed Last Taken Type DULoxetine [Cymbalta] 60 mg PO QDAY 03/18/20 09/09/20 09/08/20 History Metoprolol [Lopressor TAB] 1 tab PO DAILY 03/18/20 09/09/20 09/08/20 History Ondansetron HCl [Zofran] 8 mg PO DAILY 03/18/20 09/09/20 09/09/20 17:40 History Pantoprazole [Protonix TAB] 40 mg PO QDAY 03/18/20 09/09/20 09/09/20 17:40 History amLODIPine 5 mg PO DAILY 03/18/20 09/09/20 09/08/20 History amLODIPine 5 mg PO DAILY 03/18/20 09/09/20 09/08/20 History busPIRone [Buspar] 5 mg PO DAILY 03/18/20 09/09/20 09/08/20 History Cefdinir 300 mg PO BID #4 capsule 03/23/20 09/09/20 09/08/20 Rx Insulin NPH Hum/Reg Insulin Hm 12 unit SQ BID 30 Days #5 vial 02/09/09/20 09/09/20 17:41 Rx [Novolin 70-30 100 Unit/ml Vial] Losartan [Cozaar] 100 mg PO QDAY 30 Days #30 tablet 03/23/20 09/09/20 09/08/20 Rx Flash Glucose Scanning [place] 1 each MC BID #60 each 03/24/20 09/09/20 09/09/20 17:41 Rx [Freestyle Ibrahima 14 Day [place]] Flash Glucose Sensor [Freestyle 1 each MC BID #60 each 03/24/20 09/09/20 09/09/20 17:41 Rx Ibrahima 14 Day Sensor] oxyCODONE /ACETAMINOPHEN [Percocet 1 tab PO Q8H PRN 2 Days #8 tablet 03/24/20 09/09/20 Unknown Rx 5/325 mg] ED Physical Exam - General Limitations: No Limitations General appearance: alert, in no apparent distress - Head Head exam: Present: atraumatic, normocephalic, normal inspection - Eye Eye exam: Present: normal appearance, PERRL - ENT ENT exam: Present: mucous membranes dry - Neck Neck exam: Present: normal inspection, full ROM. Absent: tenderness, meni ngismus - Respiratory Respiratory exam: Present: normal lung sounds bilaterally - Cardiovascular Cardiovascular Exam: Present: tachycardia - GI/Abdominal GI/Abdominal exam: Present: soft, normal bowel sounds. Absent: distended, tenderness, guarding, rebound, rigid, organomegaly, mass, bruit, pulsatile mass, hernia - Extremities Exam Extremities exam: Present: normal inspection, full ROM, normal capillary refill. Absent: tenderness - Back Exam Back exam: Present: normal inspection, full ROM. Absent: CVA tenderness (R), CVA tenderness (L) - Neurological Exam Neurological exam: Present: alert, oriented X3, CN II-XII intact - Psychiatric Psychiatric exam: Present: normal mood - Skin Skin exam: Present: warm, intact, normal color ED Course Vital Signs 09/08/20 09/08/20 09/09/20 21:00 21:05 08:24 Temperature 100.1 F H Pulse Rate 143 H 91 H Respiratory 22 20 Rate Blood Pressure Blood Pressure 197/101 150/88 [Right] O2 Sat by Pulse 94 100 95 Oximetry 09/09/20 09/09/20 09/09/20 09:35 10:04 17:17 Temperature 98.6 F 98.6 F Pulse Rate 88 74 87 Respiratory 19 20 Rate Blood Pressure 155/89 Blood Pressure 155/88 135/71 [Right] O2 Sat by Pulse 95 95 Oximetry ED Medical Decision Making - Lab Data Result diagrams: 09/08/20 21:09 09/08/20 21:09 - EKG Data -: EKG Interpreted by Me EKG shows normal: sinus rhythm Rate: tachycardia - EKG Data 09/08/20 23:00 Sinus tachycardia with a heart rate of 138. - Radiology Data Radiology results: report reviewed - Medical Decision Making Patient is 54 years old female with history of hypertension, diabetes and fibromyalgia. Patient presented to the ER complaining of fever, shortness of breath, generalized weakness and nausea and vomiting for the last 2 to 3 days. Patient stated that she is unable to keep anything down. Patient stated that she is fully vaccinated against COVID-19 back in February. Chest x-ray showed patchy infiltrate. Labs reviewed and showed blood glucose of 370. Patient received insulin. Patient also received Rocephin, Zithromax and Decadron. Patient received Zofran for nausea and vomiting. I discussed the patient with Dr. Ferguson, he agreed to admit the patient to medical service for further management. Critical care attestation.: If time is entered above; I have spent that time in minutes in the direct care of this critically ill patient, excluding procedure time. ED Disposition Clinical Impression: Pneumonia, Acute nausea with nonbilious vomiting Disposition: OP ADMIT IP TO THIS HOSP Is pt being admited?: Yes Condition: Stable
[2020-09-09] MEDS ORDERED: ACETAMINOPHEN 325 MG TAB PO PRN (02:04)
[2020-09-09] MEDS ORDERED: ALBUTEROL 2.5 MG/3 ML NEBU IH PRN (02:04)
[2020-09-09] MEDS ORDERED: HYDROmorphone 1 MG/1 ML INJ IV PRN (02:04)
--- NOTE | 2020-09-09 02:14 | History and Physical Report ---
History of Present Illness Date of examination: 09/09/20 Date of admission: 09/09/2020 Chief complaint: Weakness History of present illness: 54 years old female with history of hypertension, diabetes and fibromyalgia was brought to the emergency room because of fever, shortness of breath, generalized weakness and nausea and vomiting for the last 2 to 3 days. Patient stated that she is unable to keep anything down. Patient stated that she is fully vaccinated against COVID-19 back in February. In the emergency room patient chest x-ray showed mild patchy bi lateral airspace opacities have developed bilaterally no pleural abnormality Past History Past Medical History: diabetes, hypertension, other (Fibromyalgia) Medications and Allergies Allergies Allergy/AdvReac Type Severity Reaction Status Date / Time clonidine Allergy Hives Verified 12/25/19 16:59 Home Medications Medication Instructions Recorded Confirmed Last Taken Type DULoxetine [Cymbalta] 60 mg PO QDAY 03/18/20 03/18/20 Unknown History Metoprolol [Lopressor TAB] 1 tab PO DAILY 03/18/20 03/18/20 Unknown History Ondansetron HCl [Zofran] 8 mg PO DAILY 03/18/20 03/18/20 Unknown History Pantoprazole [Protonix TAB] 40 mg PO QDAY 03/18/20 03/18/20 Unknown History amLODIPine 5 mg PO DAILY 03/18/20 03/18/20 Unknown History amLODIPine 5 mg PO DAILY 03/18/20 03/18/20 Unknown History busPIRone [Buspar] 5 mg PO DAILY 03/18/20 03/18/20 Unknown History Cefdinir 300 mg PO BID #4 capsule 03/23/20 Unknown Rx Insulin NPH Hum/Reg Insulin Hm 12 unit SQ BID 30 Days #5 vial 03/23/20 Unknown Rx [Novolin 70-30 100 Unit/ml Vial] Losartan [Cozaar] 100 mg PO QDAY 30 Days #30 tablet 03/23/20 Unknown Rx Flash Glucose Scanning [place] 1 each MC BID #60 each 03/24/20 Unknown Rx [Freestyle Ibra[place]ima 14 Day [place]] Flash Glucose Sensor [Freestyle 1 each MC BID #60 each 03/24/20 Unknown Rx I[place]ima 14 Day Sensor] oxyCODONE /ACETAMINOPHEN [Percocet 1 tab PO Q8H PRN 2 Days #8 tablet 03/24/20 Unknown Rx 5/325 mg] Review of Systems Constitutional: fever, weakness Respiratory: shortness of breath Gastrointestinal: nausea, vomiting Exam - Constitutional Vitals: Temp Pulse Resp BP Pulse Ox 100.1 F H 143 H 22 197/101 94 09/08/20 21:00 09/08/20 21:00 09/08/20 21:00 09/08/20 21:00 09/08/20 21:00 General appearance: Present: no acute distress, well-nourished - EENT Eyes: Present: PERRL ENT: hearing intact, clear oral mucosa - Neck Neck: Present: supple, normal ROM - Respiratory Respiratory effort: normal Respiratory: bilateral: CTA - Cardiovascular Heart Sounds: Present: S1 & S2. Absent: rub, click - Extremities Extremities: pulses symmetrical, No edema Peripheral Pulses: within normal limits - Abdominal General gastrointestinal: Present: soft, non-tender, non-distended, normal bowel sounds Female genitourinary: Present: normal - Integumentary Integumentary: Present: clear, warm, dry - Musculoskeletal Musculoskeletal: gait normal, strength equal bilaterally - Psychiatric Psychiatric: appropriate mood/affect, intact judgment & insight - Neurologic Neurologic: CNII-XII intact, moves all extremities Results - Labs CBC & Chem 7: 09/08/20 21:09 09/08/20 21:09 Labs: Laboratory Last Values WBC 6.5 K/mm3 (4.5-11.0) 09/08/20 21:09 RBC 4.81 M/mm3 (3.65-5.03) 09/08/20 21:09 Hgb 14.4 gm/dl (10.1-14.3) H 09/08/20 21:09 Hct 40.1 % (30.3-42.9) 09/08/20 21:09 MCV 83 fl (79-97) 09/08/20 21:09 MCH 30 pg (28-32) 09/08/20 21:09 MCHC 36 % (30-34) H 09/08/20 21:09 RDW 13.0 % (13.2-15.2) L 09/08/20 21:09 Plt Count 192 K/mm3 (140-440) 09/08/20 21:09 Lymph % (Auto) 15.9 % (13.4-35.0) 09/08/20 21:09 [place] % (Auto) 5.5 % (0.0-7.3) 09/08/20 21:09 Eos % (Auto) 0.1 % (0.0-4.3) 09/08/20 21:09 Baso % (Auto) 0.2 % (0.0-1.8) 09/08/20 21:09 Lymph # (Auto) 1.0 K/mm3 (1.2-5.4) L 09/08/20 21:09 [place] # (Auto) 0.4 K/mm3 (0.0-0.8) 09/08/20 21:09 Eos # (Auto) 0.0 K/mm3 (0.0-0.4) 09/08/20 21:09 Baso # (Auto) 0.0 K/mm3 (0.0-0.1) 09/08/20 21:09 Seg Neutrophils % 78.3 % (40.0-70.0) H 09/08/20 21:09 Seg Neutrophils # 5.1 K/mm3 (1.8-7.7) 09/08/20 21:09 Sodium 135 mmol/L (137-145) L 09/08/20 21:09 Potassium 3.6 mmol/L (3.6-5.0) 09/08/20 21:09 Chloride 93.6 mmol/L (98-107) L 09/08/20 21:09 Carbon Dioxide 24 mmol/L (22-30) 09/08/20 21:09 Anion Gap 21 mmol/L 09/08/20 21:09 BUN 12 mg/dL (7-17) 09/08/20 21:09 Creatinine 0.6 mg/dL (0.6-1.2) 09/08/20 21:09 Estimated GFR > 60 ml/min 09/08/20 21:09 BUN/Creatinine Ratio 20 % 09/08/20 21:09 Glucose 367 mg/dL (65-100) H 09/08/20 21:09 POC Glucose 376 mg/dL (70-105) H 09/08/20 23:30 Calcium 9.8 mg/dL (8.4-10.2) 09/08/20 21:09 - Imaging and Cardiology Chest x-ray: report reviewed Assessment and Plan VTE prophylaxis?: Chemical Plan of care discussed with patient/family: Yes - Patient Problems (1) Pneumonia Current Visit: Yes Status: Acute Plan to address problem: Admit to the [facility]. Oxygen via nasal cannula 3 L/min. DuoNeb by nebulizer every 4 hours. Albuterol via nebulizer every 4 hours as needed. Rocephin 2 g IV daily. Zithromax 500 mils IV daily. We do the blood cultures sputum culture. We will follow the Covid inflammatory marker. We will consult infectious disease for evaluation (2) Person under investigation for COVID-19 Current Visit: Yes Status: Acute Plan to address problem: Oxygen via nasal cannula 3 L/min. DuoNeb by nebulizer every 4 hours. Albuterol via nebulizer every 4 hours as needed. Rocephin 2 g IV daily. Zithromax 500 mils IV daily. We do the blood cultures sputum culture. We will follow the Covid inflammatory marker. We will consult infectious disease for evaluation (3) Nausea & vomiting Current Visit: Yes Status: Acute Plan to address problem: Pepcid 20 mg IV every 12 hours. Zofran 4 mg IV every 6 hours as needed. We will monitor the patient closely (4) Hypertension Current Visit: Yes Status: Acute Plan to address problem: Hydralazine 10 mg IV every 6 hours as needed. Amlodipine 5 mg p.o. daily. Losartan 100 mg p.o. daily. Metoprolol. We will monitor the blood pressure closely (5) Diabetes mellitus Current Visit: No Status: Acute Plan to address problem: We will put the patient on 1800 kcal ADA diet. Humalog sliding scale moderate dose coverage Accu-Chek before meals and at bedtime. Diabetic education (6) DVT prophylaxis Current Visit: No Status: Acute Plan to address problem: Heparin 5000 units subcu every 8 hours for DVT prophylaxis. Pepcid 20 mg IV every 12 hours for GI prophylaxis. Patient is a full code
[2020-09-09] MEDS ORDERED: DEXTROSE 50% IN WATER (25GM) 50 ML SYRINGE IV PRN (02:17)
[2020-09-09] MEDS ORDERED: hydrALAZINE 20 MG/1 ML INJ IV PRN (02:17)
[2020-09-09] MEDS ORDERED: INSULIN REGULAR, HUMAN 100 UNITS/1 ML ONE (07:43)
[2020-09-09] MEDS ORDERED: INSULIN REGULAR, HUMAN 100 UNITS/1 ML SUB-Q ONE (07:47)
[2020-09-09] MEDS: HEPARIN 5,000 UNIT/1 ML VIAL SUB-Q SCH ×3 (07:50→21:34)
[2020-09-09] MEDS: INSULIN LISPRO 100 UNIT/ML SUB-Q SCH ×5 (07:51→22:31)
[2020-09-09] MEDS: IPRATROPIUM/ALBUTEROL SULFATE 3 ML AMPUL.NEB IH SCH ×3 (08:26→20:44)
[2020-09-09] MEDS ORDERED: INSULIN NPH/REGULAR 70/30 INJ SUB-Q SCH (09:00)
[2020-09-09] MEDS: amLODIPine 5 MG TAB PO SCH (09:35)
[2020-09-09] MEDS: LOSARTAN 50 MG TAB PO SCH (09:35)
[2020-09-09] MEDS: busPIRone 5 MG TAB PO SCH (09:35)
[2020-09-09] MEDS: METOPROLOL TARTRATE 25 MG TAB PO SCH (09:36)
[2020-09-09] MEDS: FAMOTIDINE 20 MG/2 ML INJ IV SCH ×2 (09:36→21:36)
[2020-09-09] MEDS: DULoxetine 30 MG CAP PO SCH (09:36)
[2020-09-09] MEDS ORDERED: NON-FORMULARY EACH (Losartan [Cozaar] 100 MG Tablet) PO SCH (10:00)
--- NOTE | 2020-09-09 10:40 | Electrocardiograph Report ---
[facility] Test Date: 2020-09-08 Test Time: 21:17:21 Pat Name: VIRIDIANA TERRELL Department: Room: [place] [address] Gender: F Nursing Specialist: FRANCO : 1965 Requested By: JEOVANNY MCCOY Order Number: [id number] Reading MD: Francisco Church Measurements Intervals [place] Rate: 136 P: 67 RI: 138 QRS: 44 QRSD: 79 T: -4 QT: 295 QTc: 443 Interpretive Statements Sinus tachycardia Probable left atrial enlargement Anterior infarct, old No previous ECG available for comparison Electronically Signed On 09-09-2020 10:39:51 EDT by Francisco Church
--- NOTE | 2020-09-09 13:12 | Progress Note ---
Assessment and Plan Assessment and plan: (1) Pneumonia Current Visit: Yes Status: Acute Plan to address problem: Admit to the [facility]. Was on 3 L nasal cannula on admission now supplement oxygen discontinued on room air with sats in the mid 90s. Albuterol INH every 4 hours as needed Rocephin 2 g IV daily. Zithromax 500 mils IV daily. We do the blood cultures sputum culture. Every 48 hour Covid inflammatory markers Infectious disease consulted (2) Person under investigation for COVID-19 Current Visit: Yes Status: Acute Plan to address problem: Management as above Covid PCR pending (3) Nausea & vomiting Current Visit: Yes Status: Acute Plan to address problem: Pepcid 20 mg IV every 12 hours. Zofran 4 mg IV every 6 hours as needed. We will monitor the patient closely (4) Hypertension Current Visit: Yes Status: Acute Plan to address problem: Hydralazine 10 mg IV every 6 hours as needed. Amlodipine 5 mg p.o. daily. Losartan 100 mg p.o. daily. Metoprolol. We will monitor the blood pressure closely (5) Diabetes mellitus Current Visit: No Status: Acute Plan to address problem: We will put the patient on 1800 kcal ADA diet. Humalog sliding scale moderate dose coverage Accu-Chek before meals and at bedtime. Diabetic education Patient requires approximately 50 units daily of regular insulin which she titrates via her insulin pump She has a [employer] danilo blood continuous glucose monitor. Lantus 20 units nightly Sliding scale insulin Patient can titrate insulin requirements with a via pump. Her daughter will bring pump to our facility today Accu-Cheks every 4 hour since patient will be on steroids (6) DVT prophylaxis Current Visit: No Status: Acute Plan to address problem: Heparin 5000 units subcu every 8 hours for DVT prophylaxis. Pepcid 20 mg IV every 12 hours for GI prophylaxis. Patient is a full code Total Time Spent with Patient (Minutes): 35 History Interval history: 09/09/2020 patient resting comfortably on encounter. Breathing room air and saturating 95%. Remainder vitals were stable on encounter. Patient states that she is fully vaccinated and received the vaccine back in February. 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 She states that she is concerned due to her underlying comorbidities. We discussed her lab results and image studies. Patient daughter today will be bringing her insulin pump so patient can titrate blood sugars appropriately. Infectious disease was consulted on admission. Covid 19 test result pending regarding her disposition, she will likely remain here overnight for observation and can likely be discharged her home tomorrow if patient feeling well and oxygen saturations remain optimal on room air. Hospitalist Physical - Physical exam Narrative exam: Physical Exam: GENERAL APPEARANCE: Well developed, well nourished, alert and cooperative, and appears to be in no acute distress. HEAD: normocephalic. EYES: PERRL, EOMI. Vision is grossly intact. EARS: No gross deformities NOSE: No nasal discharge. THROAT: Oral cavity and pharynx normal. No inflammation, swelling, exudate, or lesions. Teeth and gingiva in good general condition. NECK: Neck supple, non-tender without lymphadenopathy, masses or thyromegaly. CARDIAC: Normal S1 and S2. No S3, S4 or murmurs. Rhythm is regular. There is no peripheral edema, cyanosis or pallor. Extremities are warm and well perfused. Capillary refill is less than 2 seconds. No carotid bruits. LUNGS: Mild bilateral wheezes appreciated. ABDOMEN: Positive bowel sounds. Soft, nondistended, nontender. No guarding or rebound. No masses. MUSKULOSKELETAL: Adequately aligned spine. ROM intact spine and extremities. No joint erythema or tenderness. Normal muscular development. Normal gait. BACK: Examination of the spine reveals normal gait and posture EXTREMITIES: No significant deformity or joint abnormality. No edema. Peripheral pulses intact. No varicosities. NEUROLOGICAL: CN II-XII intact. Strength and sensation symmetric and intact throughout. Reflexes 2+ throughout. PSYCHIATRIC: The mental examination revealed the patient was oriented to person, place, and time. - Constitutional Vitals: Temp Pulse Resp BP Pulse Ox 98.6 F 74 19 155/88 96 09/09/20 10:04 09/09/20 10:04 09/09/20 10:04 09/09/20 10:04 09/09/20 10:04 General appearance: Present: no acute distress, well-nourished Results - Labs CBC & Chem 7: 09/08/20 21:09 09/08/20 21:09 Labs: Laboratory Last Values WBC 6.5 K/mm3 (4.5-11.0) 09/08/20 21:09 RBC 4.81 M/mm3 (3.65-5.03) 09/08/20 21:09 Hgb 14.4 gm/dl (10.1-14.3) H 09/08/20 21:09 Hct 40.1 % (30.3-42.9) 09/08/20 21:09 MCV 83 fl (79-97) 09/08/20 21:09 MCH 30 pg (28-32) 09/08/20 21:09 MCHC 36 % (30-34) H 09/08/20 21:09 RDW 13.0 % (13.2-15.2) L 09/08/20 21:09 Plt Count 192 K/mm3 (140-440) 09/08/20 21:09 Lymph % (Auto) 15.9 % (13.4-35.0) 09/08/20 21:09 [place] % (Auto) 5.5 % (0.0-7.3) 09/08/20 21:09 Eos % (Auto) 0.1 % (0.0-4.3) 09/08/20 21:09 Baso % (Auto) 0.2 % (0.0-1.8) 09/08/20 21:09 Lymph # (Auto) 1.0 K/mm3 (1.2-5.4) L 09/08/20 21:09 [place] # (Auto) 0.4 K/mm3 (0.0-0.8) 09/08/20 21:09 Eos # (Auto) 0.0 K/mm3 (0.0-0.4) 09/08/20 21:09 Baso # (Auto) 0.0 K/mm3 (0.0-0.1) 09/08/20 21:09 Seg Neutrophils % 78.3 % (40.0-70.0) H 09/08/20 21:09 Seg Neutrophils # 5.1 K/mm3 (1.8-7.7) 09/08/20 21:09 Sodium 135 mmol/L (137-145) L 09/08/20 21:09 Potassium 3.6 mmol/L (3.6-5.0) 09/08/20 21:09 Chloride 93.6 mmol/L (98-107) L 09/08/20 21:09 Carbon Dioxide 24 mmol/L (22-30) 09/08/20 21:09 Anion Gap 21 mmol/L 09/08/20 21:09 BUN 12 mg/dL (7-17) 09/08/20 21:09 Creatinine 0.6 mg/dL (0.6-1.2) 09/08/20 21:09 Estimated GFR > 60 ml/min 09/08/20 21:09 BUN/Creatinine Ratio 20 % 09/08/20 21:09 Glucose 367 mg/dL (65-100) H 09/08/20 21:09 POC Glucose 376 mg/dL (70-105) H 09/08/20 23:30 Calcium 9.8 mg/dL (8.4-10.2) 09/08/20 21:09 Microbiology: Microbiology 09/08/20 23:53 Peripheral/Venous Blood Culture - Preliminary Culture in Progress 09/08/20 23:40 Peripheral/Venous Blood Culture - Preliminary Culture in Progress Active Medications - Current Medications Current Medications: Generic Name Dose Route Start Last Admin Trade Name Freq PRN Reason Stop Dose Admin Acetaminophen 650 mg 09/09/20 02:04 Acetaminophen 325 Mg Tab PO Q4H PRN Pain MILD(1-3)/Fever >100.5/JACKSON Albuterol 2.5 mg 09/09/20 02:04 Albuterol 2.5 Mg/3 Ml Nebu IH Q4HRT PRN Shortness Of Breath Albuterol/Ipratropium 1 ampul 09/09/20 08:00 09/09/20 08:26 Ipratropium/Albuterol Sulfate 3 Ml Ampul.Neb IH 1 ampul Q6HRT GUDELIA Administration Amlodipine Besylate 5 mg 09/09/20 10:00 09/09/20 09:35 Amlodipine 5 Mg Tab PO 5 mg DAILY GUDELIA Administration Buspirone HCl 5 mg 09/09/20 10:00 09/09/20 09:35 Buspirone 5 Mg Tab PO 5 mg DAILY GUDELIA Administration Dextrose 50 ml 09/09/20 02:17 Dextrose 50% In Water (25gm) 50 Ml Syringe IV Q30MIN PRN Hypoglycemia Protocol Duloxetine HCl 60 mg 09/09/20 10:00 09/09/20 09:36 Duloxetine 30 Mg Cap PO 60 mg QDAY GUDELIA Administration Famotidine 20 mg 09/09/20 10:00 09/09/20 09:36 Famotidine 20 Mg/2 Ml Inj IV 20 mg BID GUDELIA Administration Heparin Sodium (Porcine) 5,000 unit 09/09/20 06:00 09/09/20 07:50 Heparin 5,000 Unit/1 Ml Vial SUB-Q 5,000 unit Q8HR GUDELIA Administration Hydralazine HCl 10 mg 09/09/20 02:17 Hydralazine 20 Mg/1 Ml Inj IV Q6H PRN Blood Pressure Hydromorphone HCl 0.5 mg 09/09/20 02:04 Hydromorphone 1 Mg/1 Ml Inj IV Q3H PRN Pain , Severe (7-10) Ceftriaxone Sodium 2 gm in 100 mls @ 200 mls/hr 09/09/20 22:00 Rocephin/Ns 2 Gm/100 Ml IV 09/12/20 22:29 Q24H [facility] Protocol Azithromycin 500 mg in 250 mls @ 250 mls/hr 09/09/20 22:00 Zithromax/Ns IV 09/12/20 22:59 Q24H [facility] Protocol Insulin Glargine 20 units 09/09/20 22:00 Insulin Glargine 100 Units/Ml SUB-Q QHS GUDELIA Insulin Human Lispro 0 unit 09/09/20 07:30 09/09/20 11:55 Insulin Lispro 100 Unit/Ml SUB-Q 15 unit ACHS GUDELIA Administration Protocol Losartan Potassium 100 mg 09/09/20 10:00 09/09/20 09:35 Losartan 50 Mg Tab PO 100 mg QDAY GUDELIA Administration Metoprolol Tartrate 25 mg 09/09/20 10:00 09/09/20 09:36 Metoprolol Tartrate 25 Mg Tab PO 25 mg DAILY GUDELIA Administration Ondansetron HCl 4 mg 09/09/20 02:04 Ondansetron 4 Mg/2 Ml Inj IV Q8H PRN Nausea And Vomiting Oxycodone/Acetaminophen 1 tab 09/09/20 02:04 Oxycodone /Acetaminophen 5-325mg Tab PO Q6H PRN Pain, Moderate (4-6) Sodium Chloride 10 ml 09/09/20 10:00 09/09/20 09:36 Sodium Chloride 0.9% 10 Ml Flush Syringe IV 10 ml BID GUDELIA Administration Sodium Chloride 10 ml 09/09/20 02:04 Sodium Chloride 0.9% 10 Ml Flush Syringe IV PRN PRN LINE FLUSH Nutrition/Malnutrition Assess - Dietary Evaluation Nutrition/Malnutrition Findings: Nutrition Notes Start: 09/09/20 07:35 Freq: Status: Active Protocol: Document 09/09/20 07:35 (Rec: 09/09/20 07:40 MK [id number]) Nutrition Notes Need for Assessment generated from: MD Order Initial or Follow up Brief Note Current Diagnosis Diabetes,Hypertension Other Pertinent Diagnosis pneu, COVID PUI, fibromyalgia Current Diet cardiac, consistent CHO Labs/Tests POC BG 376 Pertinent Medications reviewed Height 5 ft 3 in Weight 68.1 kg [place] Body Weight (kg) 52.27 BMI 26.6 Intake Prior to Admission Poor Weight Status Overweight Subjective/Other Information MD consult for diet education. Pt with N/V for 2-3 days [employer]. Burn Absent Trauma Absent GI Symptoms Nausea,Vomiting Minimum of two criteria No physical signs of malnutrition #1 Nutrition Diagnosis Inadequate oral intake Etiology acute illness As Evidenced by Signs and Symptoms N/V 2-3 days Is patient on ventilator? No Is Patient Ambulatory and/or Out of Bed No REE-([place] Jeor-confined to bed) 1516.320 Calculation [facility] Additional Notes Protein: (0.8-1g/kg) 54-68g Fluid: 1 ml/kcal Nutrition Intervention Change Diet Order: continue Add Supplement/Snack (indicate name/kcal Glucerna BID /protein ) Provides kCal: 440 Provides Protein (gm) 20 Goal #1 Meet at least 75% of energy and protein needs via PO and ONS Anticipated Discharge Needs: cardiac, consistent CHO Follow-Up By: 09/11/20 Additional Comments FU for assessment, intakes and ONS tolerance
[2020-09-09] MEDS: oxyCODONE /ACETAMINOPHEN 5-325MG TAB PO PRN ×2 (15:44→21:35)
[2020-09-09] MEDS: ONDANSETRON 4 MG/2 ML INJ IV PRN ×2 (15:44→19:43)
[2020-09-09] MEDS ORDERED: INSULIN REGULAR, HUMAN 100 UNITS/1 ML SUB-Q SCH (16:30)
[2020-09-09] MEDS: AZITHROMYCIN/NS 500 MG/250 ML 500 MG/250 ML BAG IV SCH (21:33)
[2020-09-09] MEDS: cefTRIAXone/NS 2 GM/100 ML 2 GM/100 ML BAG IV SCH (21:34)
[2020-09-09] MEDS: INSULIN GLARGINE 100 UNITS/ML SUB-Q SCH (22:31)
[2020-09-10] MEDS: IPRATROPIUM/ALBUTEROL SULFATE 3 ML AMPUL.NEB IH SCH ×4 (02:47→20:37)
[2020-09-10] MEDS: HEPARIN 5,000 UNIT/1 ML VIAL SUB-Q SCH ×3 (06:08→21:45)
[2020-09-10] MEDS: ONDANSETRON 4 MG/2 ML INJ IV PRN ×2 (06:13→16:43)
[2020-09-10 07:56] LABS: Basophils % (Auto) 0.2 % (0.0-1.8); Hematocrit 34.7 % (30.3-42.9); Hemoglobin 12.4 gm/dl (10.1-14.3); Lymphocytes # (Auto) 1.1 K/mm3 (1.2-5.4); Lymphocytes % (Auto) 7.6 % (13.4-35.0); Mean Corpuscular HGB Conc 36 % (30-34); Mean Corpuscular Volume 84 fl (79-97); Monocytes # (Auto) 0.5 K/mm3 (0.0-0.8); Monocytes % (Auto) 3.8 % (0.0-7.3); Platelet Count 211 K/mm3 (140-440); Red Blood Count 4.12 M/mm3 (3.65-5.03); Red Cell Distribution Width 13.1 % (13.2-15.2)
[2020-09-10 08:16] LABS: Blood Urea Nitrogen 14 mg/dL (7-17); Calcium 9.2 mg/dL (8.4-10.2); Hemolysis Index 3
[2020-09-10] MEDS: INSULIN LISPRO 100 UNIT/ML SUB-Q SCH ×7 (08:18→22:22)
[2020-09-10 08:19] LABS: BUN/Creatinine Ratio 20
[2020-09-10] MEDS: oxyCODONE /ACETAMINOPHEN 5-325MG TAB PO PRN ×2 (08:22→21:44)
[2020-09-10] MEDS: LOSARTAN 50 MG TAB PO SCH (10:42)
[2020-09-10] MEDS: busPIRone 5 MG TAB PO SCH (10:43)
[2020-09-10] MEDS: METOPROLOL TARTRATE 25 MG TAB PO SCH (10:44)
[2020-09-10] MEDS: amLODIPine 5 MG TAB PO SCH (10:44)
[2020-09-10] MEDS: FAMOTIDINE 20 MG/2 ML INJ IV SCH ×2 (10:45→22:27)
[2020-09-10] MEDS: DULoxetine 30 MG CAP PO SCH (10:48)
--- NOTE | 2020-09-10 11:32 | Consultation ---
History of Present Illness - Reason for Consult Consult date: 09/10/20 - History of Present Illness 54-year-old female past medical history hypertension, diabetes, fibromyalgia admitted to the hospital complaining of shortness of breath, fevers, weakness. This began approximately 2 to 3 days prior to admission has been progressively worse since onset. She also notes nausea and vomiting. She was vaccinated against Covid in February. Afebrile since admission with a white count of 13.9. Covid positive. Normal renal function. Pending procalcitonin. Blood cultures no growth so far. Cu rrently receiving ceftriaxone azithromycin. Currently on 2 L nasal cannula. Imaging personally reviewed: Chest x-ray: Mild patchy bilateral airspace opacities Review of systems: Deferred to reduce to the risk of transmission of COVID-19 Past History Past Medical History: diabetes, hypertension, other (Fibromyalgia) Medications and Allergies Allergies Allergy/AdvReac Type Severity Reaction Status Date / Time clonidine Allergy Hives Verified 12/25/19 16:59 Home Medications Medication Instructions Recorded Confirmed Last Taken Type DULoxetine [Cymbalta] 60 mg PO QDAY 03/18/20 09/09/20 09/08/20 History Metoprolol [Lopressor TAB] 1 tab PO DAILY 03/18/20 09/09/20 09/08/20 History Ondansetron HCl [Zofran] 8 mg PO DAILY 03/18/20 09/09/20 09/09/20 17:40 History Pantoprazole [Protonix TAB] 40 mg PO QDAY 03/18/20 09/09/20 09/09/20 17:40 History amLODIPine 5 mg PO DAILY 03/18/20 09/09/20 09/08/20 History amLODIPine 5 mg PO DAILY 03/18/20 09/09/20 09/08/20 History busPIRone [Buspar] 5 mg PO DAILY 03/18/20 09/09/20 09/08/20 History Cefdinir 300 mg PO BID #4 capsule 03/23/20 09/09/20 09/08/20 Rx Insulin NPH Hum/Reg Insulin Hm 12 unit SQ BID 30 Days #5 vial 03/23/20 09/09/20 09/09/20 17:41 Rx [Novolin 70-30 100 Unit/ml Vial] Losartan [Cozaar] 100 mg PO QDAY 30 Days #30 tablet 03/23/20 09/09/20 09/08/20 Rx Flash Glucose Scanning [place] 1 each MC BID #60 each 03/24/20 09/09/20 09/09/20 17:41 Rx [Freestyle Ibrahima 14 Day [place]] Flash Glucose Sensor [Freestyle 1 each MC BID #60 each 03/24/20 09/09/20 09/09/20 17:41 Rx Ibrahima 14 Day Sensor] oxyCODONE /ACETAMINOPHEN [Percocet 1 tab PO Q8H PRN 2 Days #8 tablet 03/24/20 09/09/20 Unknown Rx 5/325 mg] Active Meds: Active Medications Acetaminophen (Acetaminophen 325 Mg Tab) 650 mg PO Q4H PRN PRN Reason: Pain MILD(1-3)/Fever >100.5/JACKSON Last Admin: 09/09/20 19:43 Dose: 650 mg Documented by: Albuterol (Albuterol 2.5 Mg/3 Ml Nebu) 2.5 mg IH Q4HRT PRN PRN Reason: Shortness Of Breath Albuterol/Ipratropium (Ipratropium/Albuterol Sulfate 3 Ml Ampul.Neb) 1 ampul IH Q6HRT [facility] Last Admin: 09/10/20 09:25 Dose: 1 ampul Documented by: Amlodipine Besylate (Amlodipine 5 Mg Tab) 5 mg PO DAILY [facility] Last Admin: 09/10/20 10:44 Dose: 5 mg Documented by: Buspirone HCl (Buspirone 5 Mg Tab) 5 mg PO DAILY [facility] Last Admin: 09/10/20 10:43 Dose: 5 mg Documented by: Dextrose (Dextrose 50% In Water (25gm) 50 Ml Syringe) 50 ml IV Q30MIN PRN; Protocol PRN Reason: Hypoglycemia Duloxetine HCl (Duloxetine 30 Mg Cap) 60 mg PO QDAY [facility] Last Admin: 09/10/20 10:48 Dose: 60 mg Documented by: Famotidine (Famotidine 20 Mg/2 Ml Inj) 20 mg IV BID [facility] Last Admin: 09/10/20 10:45 Dose: 20 mg Documented by: Heparin Sodium (Porcine) (Heparin 5,000 Unit/1 Ml Vial) 5,000 unit SUB-Q Q8HR [facility] Last Admin: 09/10/20 06:08 Dose: 5,000 unit Documented by: Hydralazine HCl (Hydralazine 20 Mg/1 Ml Inj) 10 mg IV Q6H PRN PRN Reason: Blood Pressure Last Admin: 09/09/20 22:07 Dose: 10 mg Documented by: Hydromorphone HCl (Hydromorphone 1 Mg/1 Ml Inj) 0.5 mg IV Q3H PRN PRN Reason: Pain , Severe (7-10) Ceftriaxone Sodium (Rocephin/Ns 2 Gm/100 Ml) 2 gm in 100 mls @ 200 mls/hr IV Q24H [facility]; Protocol Stop: 09/12/20 22:29 Last Infusion: 09/09/20 22:34 Dose: Infused Documented by: Azithromycin (Zithromax/Ns) 500 mg in 250 mls @ 250 mls/hr IV Q24H [facility]; Protocol Stop: 09/12/20 22:59 Last Infusion: 09/09/20 22:34 Dose: Infused Documented by: Insulin Glargine (Insulin Glargine 100 Units/Ml) [facility] Admin: 09/09/20 22:31 Dose: Not Given Documented by: Insulin Human Lispro (Insulin Lispro 100 Unit/Ml) 0 unit SUB-Q [facility]; Protocol Last Admin: 09/10/20 08:18 Dose: 4 unit Documented by: Insulin Human Lispro (Insulin Lispro 100 Unit/Ml) 15 unit SUB-Q [facility] Last Admin: 09/10/20 08:21 Dose: 15 unit Documented by: Losartan Potassium (Losartan 50 Mg Tab) 100 mg PO QDAY [facility] Last Admin: 09/10/20 10:42 Dose: 100 mg Documented by: Metoprolol Tartrate (Metoprolol Tartrate 25 Mg Tab) 25 mg PO DAILY [facility] Last Admin: 09/10/20 10:44 Dose: 25 mg Documented by: Ondansetron HCl (Ondansetron 4 Mg/2 Ml Inj) 4 mg IV Q8H PRN PRN Reason: Nausea And Vomiting Last Admin: 09/10/20 06:13 Dose: 4 mg Documented by: Oxycodone/Acetaminophen (Oxycodone /Acetaminophen 5-325mg Tab) 1 tab PO Q6H PRN PRN Reason: Pain, Moderate (4-6) Last Admin: 09/10/20 08:22 Dose: 1 tab Documented by: Sodium Chloride (Sodium Chloride 0.9% 10 Ml Flush Syringe) 10 ml IV BID GUDELIA Last Admin: 09/10/20 10:45 Dose: 10 ml Documented by: Sodium Chloride (Sodium Chloride 0.9% 10 Ml Flush Syringe) 10 ml IV PRN PRN PRN Reason: LINE FLUSH Physical Examination - Physical Exam Narrative exam: Physical exam deferred to reduce risk of transmission of COVID-19. Please refer to primary team's note. - Constitutional Vitals: Vital Signs Temp Pulse Resp BP Pulse Ox 99.5 F 118 H 20 155/80 90 09/10/20 10:54 09/10/20 10:54 09/10/20 10:54 09/10/20 10:54 09/10/20 10:54 Temperature -Last 24 Hours Temperature 99.5 F Temperature 98.6 F Temperature 98.6 F Results - Labs CBC & Chem 7: 09/10/20 07:28 09/10/20 07:28 Labs: Abnormal lab results 09/09/20 09/10/20 09/10/20 Range/Units 08:25 07:28 07:28 WBC 13.9 H (4.5-11.0) K/mm3 MCHC 36 H (30-34) % RDW 13.1 L (13.2-15.2) % Lymph % (Auto) 7.6 L (13.4-35.0) % Lymph # (Auto) 1.1 L (1.2-5.4) K/mm3 Seg Neutrophils % 88.4 H (40.0-70.0) % Seg Neutrophils # 12.3 H (1.8-7.7) K/mm3 Potassium 3.3 L (3.6-5.0) mmol/L Chloride 96.3 L (98-107) mmol/L Glucose 285 H (65-100) mg/dL Coronavirus (PCR) Positive A (Negative) Assessment and Plan Cultures: Blood culture no growth so far Covid PCR: Positive A/P: 54-year-old female past medical history diabetes, hypertension, fibromyalgia admitted with COVID-19 pneumonia #COVID-19 pneumonia: Patient presented with 2-3 days of symptoms, chest x-ray with mild bilateral infiltrates. #Acute hypoxemic respiratory failure: Likely secondary to COVID-19 infection. Currently on 2L NC #Diabetes: tight glycemic control for best outcomes. Recs: -Dexamethasone 6 mg IV/PO daily for 10 days -Remdesivir 200 mg IV q day x 1 followed by 100 mg IV q day x 4 days -Obtain q48-72h inflammatory markers - ferritin, Ddimer, CRP, LDH -Continue ceftriaxone 2 gm IV qday and azithromycin 500 mg PO qday, if procalcitonin <0.25 ng/mL stop antibiotics -Anticoagulation per hospital protocol -Proning as able Thank you for the consult, we will continue to follow. MD [facility] O: [phone] F: [phone]
[2020-09-10] MEDS ORDERED: amLODIPine 5 MG TAB PO SCH (11:54)
[2020-09-10] MEDS: dexAMETHasone 4 MG/ML VIAL IV SCH (12:18)
--- NOTE | 2020-09-10 12:41 | Progress Note ---
Assessment and Plan 54-year-old female past medical history hypertension, diabetes, fibromyalgia was vaccinated against Covid in February admitted to the hospital with COVID-19 pneumonia. Chest x-ray showed: Mild patchy bilateral airspace opacities. A/P: --COVID-19 pneumonia: -ID consulted -Initiated on dexamethasone 6 mg IV/PO daily for 10 days and remdesivir 200 mg IV q day x 1 followed by 100 mg IV q day x 4 days -Obtain q48-72h inflammatory markers - ferritin, Ddimer, CRP, LDH -Continue ceftriaxone 2 gm IV qday and azithromycin 500 mg PO qday, if procalcitonin <0.25 ng/mL stop antibiotics -Anticoagulation per hospital protocol -Proning as able --Acute hypoxemic respiratory failure: Likely secondary to COVID-19 infection. Currently on 2L NC --Diabetes type 2: consistent carb diet with SSI --HTN, uncontrolled Initiated amlodipine, will cont to monitor --Nausea & vomiting Pepcid 20 mg IV every 12 hours. Zofran 4 mg IV every 6 hours as needed. We will monitor the patient closely --Hypokalemia, replete and repeat BMP tomorrow --DVT Px, on heparin Daily course: 09/10/20: Continue to follow inflammatory markers, patient currently on 4 L nasal cannula. ID consulted and initiated on dexamethasone remdesivir. Continue to monitor inflammatory markers. Subjective Date of service: 09/10/20 Interval history: Patient seen and examined. Medical records and medication list reviewed. No acute event overnight noted by the RN. Patient resting on bed, on 4 L nasal cannula Discussed plan of care at bedside with patient. Objective - Exam Narrative Exam: Limited physical exam due to COVID-19 pandemic to minimize transmission of the disease and to preserve PPE. Vital reviewed and stable. GENERAL: well-developed well-nourished white female lying on bed appeared to be in no discomfort. HEENT: Normocephalic. Atraumatic. NECK: Supple. CHEST/LUNGS: breathing nonlabored. HEART/CARDIOVASCULAR: Heart rate stable on telemetry ABDOMEN: Visibly not distended SKIN: There is no rash NEURO: No focal motor deficit. Follows command. MUSCULOSKELETAL: No joint effusion EXTRIMITY: No swelling, no cyanosis or clubbing. PSYCH: Cooperative. - Constitutional Vitals: Vital Signs - 12hr 09/10/20 09/10/2021 02:48 05:00 09:25 Temperature Pulse Rate Pulse Rate [ 68 Apical] Pulse Rate [ 98 H 99 H Posterior Bilateral Throughout] Respiratory 20 Rate Respiratory 18 18 Rate [Posterior Bilateral Throughout] Blood Pressure Blood Pressure [Right] O2 Sat by Pulse 94 Oximetry 09/10/20 09/10/20 09/10/20 09:31 10:42 10:44 Temperature Pulse Rate 118 H 118 H Pulse Rate [ Apical] Pulse Rate [ Posterior Bilateral Throughout] Respiratory Rate Respiratory Rate [Posterior Bilateral Throughout] Blood Pressure 155/80 155/80 Blood Pressure [Right] O2 Sat by Pulse 99 Oximetry 09/10/20 09/10/20 10:54 12:21 Temperature 99.5 F Pulse Rate 118 H 118 H Pulse Rate [ Apical] Pulse Rate [ Posterior Bilateral Throughout] Respiratory 20 Rate Respiratory Rate [Posterior Bilateral Throughout] Blood Pressure 155/80 Blood Pressure 155/80 [Right] O2 Sat by Pulse 90 Oximetry - Labs CBC & Chem 7: 09/10/20 07:28 09/11/20 05:31 Labs: Abnormal lab results 09/09/20 09/10/20 09/10/20 Range/Units 08:25 07:28 07:28 WBC 13.9 H (4.5-11.0) K/mm3 MCHC 36 H (30-34) % RDW 13.1 L (13.2-15.2) % Lymph % (Auto) 7.6 L (13.4-35.0) % Lymph # (Auto) 1.1 L (1.2-5.4) K/mm3 Seg Neutrophils % 88.4 H (40.0-70.0) % Seg Neutrophils # 12.3 H (1.8-7.7) K/mm3 Potassium 3.3 L (3.6-5.0) mmol/L Chloride 96.3 L (98-107) mmol/L Glucose 285 H (65-100) mg/dL Coronavirus (PCR) Positive A (Negative)
[2020-09-10] MEDS ORDERED: POTASSIUM CHLORIDE ER 20 MEQ TAB PO NR (13:00)
[2020-09-10] MEDS ORDERED: amLODIPine 5 MG TAB PO ONE (13:00)
[2020-09-10] MEDS ORDERED: REMDESIVIR 200 MG in SODIUM CHLORIDE 0.9% 250ML 250 ML IV ONE (13:00)
[2020-09-10 14:53] LABS: C-Reactive Protein 17.9 mg/dL (0.00-1.30)
[2020-09-10] MEDS: SODIUM CHLORIDE 0.9% 50 ML IVPB IV SCH (18:23)
[2020-09-10] MEDS: INSULIN GLARGINE 100 UNITS/ML SUB-Q SCH (21:45)
[2020-09-10] MEDS: cefTRIAXone/NS 2 GM/100 ML 2 GM/100 ML BAG IV SCH (21:52)
[2020-09-10] MEDS: AZITHROMYCIN/NS 500 MG/250 ML 500 MG/250 ML BAG IV SCH (21:52)
[2020-09-11] MEDS: IPRATROPIUM/ALBUTEROL SULFATE 3 ML AMPUL.NEB IH SCH (02:20)
[2020-09-11] MEDS: HEPARIN 5,000 UNIT/1 ML VIAL SUB-Q SCH ×3 (05:40→21:57)
[2020-09-11] MEDS: oxyCODONE /ACETAMINOPHEN 5-325MG TAB PO PRN (05:45)
[2020-09-11 06:13] LABS: Alanine Aminotransferase 27 units/L (7-56); Albumin 3.6 g/dL (3.9-5); Blood Urea Nitrogen 16 mg/dL (7-17); Calcium 9.2 mg/dL (8.4-10.2); Hemolysis Index 1
[2020-09-11 06:14] LABS: BUN/Creatinine Ratio 23
[2020-09-11] MEDS: INSULIN LISPRO 100 UNIT/ML SUB-Q SCH ×7 (08:41→22:01)
[2020-09-11] MEDS: FAMOTIDINE 20 MG/2 ML INJ IV SCH ×2 (09:47→21:57)
[2020-09-11] MEDS: dexAMETHasone 4 MG/ML VIAL IV SCH (09:47)
[2020-09-11] MEDS: LOSARTAN 50 MG TAB PO SCH (09:47)
[2020-09-11] MEDS: amLODIPine 10 MG TAB PO SCH (09:48)
[2020-09-11] MEDS: DULoxetine 30 MG CAP PO SCH (09:48)
[2020-09-11] MEDS: busPIRone 5 MG TAB PO SCH (09:48)
[2020-09-11] MEDS: METOPROLOL TARTRATE 25 MG TAB PO SCH (09:48)
[2020-09-11] MEDS: ONDANSETRON 4 MG/2 ML INJ IV PRN (11:44)
[2020-09-11] MEDS ORDERED: ALPRAZolam 0.25 MG TAB PO PRN (14:09)
--- NOTE | 2020-09-11 14:16 | Progress Note ---
Assessment and Plan 54-year-old female past medical history hypertension, diabetes, fibromyalgia was vaccinated against Covid in February admitted to the hospital with COVID-19 pneumonia. Chest x-ray showed: Mild patchy bilateral airspace opacities. A/P: --COVID-19 pneumonia: -ID consulted -Initiated on dexamethasone 6 mg IV/PO daily for 10 days and remdesivir 200 mg IV q day x 1 followed by 100 mg IV q day x 4 days -Obtain q48-72h inflammatory markers - ferritin, Ddimer, CRP, LDH -Continue ceftriaxone 2 gm IV qday and azithromycin 500 mg PO qday, if procalcitonin <0.25 ng/mL stop antibiotics -Anticoagulation per hospital protocol -Proning as able --Acute hypoxemic respiratory failure: Likely secondary to COVID-19 infection. Currently on 2L NC --Diabetes type 2: consistent carb diet with SSI --HTN, uncontrolled Initiated amlodipine, will cont to monitor --Nausea & vomiting Pepcid 20 mg IV every 12 hours. Zofran 4 mg IV every 6 hours as needed. We will monitor the patient closely --Hypokalemia, replete and repeat BMP tomorrow --DVT Px, on heparin Daily course: 09/10/20: Continue to follow inflammatory markers, patient currently on 4 L nasal cannula. ID consulted and initiated on dexamethasone remdesivir. Continue to monitor inflammatory markers. 09/11/20: Patient on 2 to 3 L nasal cannula O2 today. Continue to follow inflammatory markers, continue dexamethasone and remdesivir. Subjective Date of service: 09/11/20 Interval history: Patient seen and examined. Medical records and medication list reviewed. No acute event overnight noted by the RN. Patient resting on bed, on 3 L nasal cannula Discussed plan of care at bedside with patient. Objective - Exam Narrative Exam: Limited physical exam due to COVID-19 pandemic to minimize transmission of the disease and to preserve PPE. Vital reviewed and stable. GENERAL: well-developed well-nourished white female lying on bed appeared to be in no discomfort. HEENT: Normocephalic. Atraumatic. NECK: Supple. CHEST/LUNGS: breathing nonlabored. HEART/CARDIOVASCULAR: Heart rate stable on telemetry ABDOMEN: Visibly not distended SKIN: There is no rash NEURO: No focal motor deficit. Follows command. MUSCULOSKELETAL: No joint effusion EXTRIMITY: No swelling, no cyanosis or clubbing. PSYCH: Cooperative. - Constitutional Vitals: Vital Signs - 12hr 09/11/20 09/11/20 09/11/20 05:00 05:53 06:57 Temperature 97.7 F Pulse Rate 102 H Pulse Rate [ 72 Apical] Respiratory 20 20 Rate Blood Pressure 140/81 O2 Sat by Pulse 93 90 97 Oximetry 09/11/20 09/11/20 09/11/20 08:11 08:12 09:50 Temperature Pulse Rate Pulse Rate [ Apical] Respiratory 18 Rate Blood Pressure 162/95 O2 Sat by Pulse 93 92 Oximetry 09/11/20 13:28 Temperature 98.4 F Pulse Rate 98 H Pulse Rate [ Apical] Respiratory 16 Rate Blood Pressure 137/86 O2 Sat by Pulse 92 Oximetry - Labs CBC & Chem 7: 09/10/20 07:28 09/12/20 08:20 Labs: Abnormal lab results 09/10/20 09/10/20 09/11/20 Range/Units 13:33 13:33 05:31 Chloride 97.7 L (98-107) mmol/L Glucose 259 H (65-100) mg/dL Ferritin 300.3 H (10.0-200.0) ng/mL Lactate Dehydrogenase 197 H (91-180) units/L C-Reactive Protein 17.90 H (0.00-1.30) mg/dL Albumin 3.6 L (3.9-5) g/dL
--- NOTE | 2020-09-11 17:11 | Progress Note ---
Assessment and Plan Cultures: Blood culture no growth so far Covid PCR: Positive A/P: 54-year-old female past medical history diabetes, hypertension, fibromya lgia admitted with COVID-19 pneumonia #COVID-19 pneumonia: Patient presented with 2-3 days of symptoms, chest x-ray with mild bilateral infiltrates. #Acute hypoxemic respiratory failure: Likely secondary to COVID-19 infection. Currently on 2L NC #Diabetes: tight glycemic control for best outcomes. Recs: -Dexamethasone 6 mg IV/PO daily for 10 days -Remdesivir 200 mg IV q day x 1 followed by 100 mg IV q day x 4 days -Obtain q48-72h inflammatory markers - ferritin, Ddimer, CRP, LDH -Antibiotic stopped due to normal procalcitonin -Anticoagulation per hospital protocol -Proning as able Thank you for the consult, we will continue to follow. Melissa Alvarado MD [facility] O: [phone] F: [phone] Subjective Date of service: 09/11/20 Interval history: Afebrile, currently on 2 L nasal cannula. Objective - Exam Narrative Exam: Physical exam deferred to reduce risk of transmission of COVID-19. Please refer to primary team's note. - Constitutional Vitals: Vital Signs Temp Pulse Resp BP Pulse Ox 98.4 F 98 H 16 137/86 92 09/11/20 13:28 09/11/20 13:28 09/11/20 13:28 09/11/20 13:28 09/11/20 13:28 Temperature -Last 24 Hours Temperature 98.4 F Temperature 97.7 F Temperature 97.6 F Temperature 97.8 F - Labs CBC & Chem 7: 09/10/20 07:28 09/11/20 05:31 Labs: Abnormal lab results 09/11/20 Range/Units 05:31 Chloride 97.7 L (98-107) mmol/L Glucose 259 H (65-100) mg/dL Albumin 3.6 L (3.9-5) g/dL
[2020-09-11] MEDS: REMDESIVIR 100 MG in SODIUM CHLORIDE 0.9% 250ML 250 ML IV SCH (21:55)
[2020-09-11] MEDS: SODIUM CHLORIDE 0.9% 50 ML IVPB IV SCH (21:55)
[2020-09-11] MEDS: INSULIN GLARGINE 100 UNITS/ML SUB-Q SCH (21:56)
[2020-09-11] MEDS: AZITHROMYCIN/NS 500 MG/250 ML 500 MG/250 ML BAG IV SCH (22:01)
[2020-09-11] MEDS: cefTRIAXone/NS 2 GM/100 ML 2 GM/100 ML BAG IV SCH (22:01)
[2020-09-12] MEDS: HEPARIN 5,000 UNIT/1 ML VIAL SUB-Q SCH ×3 (06:44→21:29)
[2020-09-12] MEDS: INSULIN LISPRO 100 UNIT/ML SUB-Q SCH ×7 (08:33→22:07)
[2020-09-12 09:13] LABS: Alanine Aminotransferase 21 units/L (7-56); Albumin 3.2 g/dL (3.9-5); Blood Urea Nitrogen 19 mg/dL (7-17); Calcium 9.5 mg/dL (8.4-10.2); Hemolysis Index 8
[2020-09-12 09:22] LABS: BUN/Creatinine Ratio 32
[2020-09-12] MEDS: DULoxetine 30 MG CAP PO SCH (09:28)
[2020-09-12] MEDS: dexAMETHasone 4 MG/ML VIAL IV SCH (09:28)
[2020-09-12] MEDS: busPIRone 5 MG TAB PO SCH (09:28)
[2020-09-12] MEDS: FAMOTIDINE 20 MG/2 ML INJ IV SCH ×2 (09:28→21:29)
[2020-09-12] MEDS: amLODIPine 10 MG TAB PO SCH (09:29)
[2020-09-12] MEDS: LOSARTAN 50 MG TAB PO SCH (09:29)
[2020-09-12] MEDS: METOPROLOL TARTRATE 25 MG TAB PO SCH (09:31)
--- NOTE | 2020-09-12 10:09 | Progress Note ---
Assessment and Plan Cultures: Blood culture no growth so far Covid PCR: Positive A/P: 54-year-old female past medical history diabetes, hypertension, fibromya lgia admitted with COVID-19 pneumonia #COVID-19 pneumonia: Patient presented with 2-3 days of symptoms, chest x-ray with mild bilateral infiltrates. Antibiotic stopped due to normal procalcitonin #Acute hypoxemic respiratory failure: Likely secondary to COVID-19 infection. Currently on 2L NC #Diabetes: tight glycemic control for best outcomes. Recs: -Dexamethasone 6 mg IV/PO daily for 10 days -Remdesivir 200 mg IV q day x 1 followed by 100 mg IV q day x 4 days -Obtain q48-72h inflammatory markers - ferritin, Ddimer, CRP, LDH -Anticoagulation per hospital protocol -Proning as able 6MWT prior to discharge. No need to stay to complete remdesivir course if otherwise improved. Thank you for the consult, we will continue to follow. Melissa Alvarado MD [facility] ([facility] O: [phone] F: [phone] Subjective Date of service: 09/12/20 Interval history: Afebrile, white count 13.9. Remains on 2 L nasal cannula. Objective - Exam Narrative Exam: Physical exam deferred to reduce risk of transmission of COVID-19. Please refer to primary team's note. - Constitutional Vitals: Vital Signs Temp Pulse Resp BP Pulse Ox 98.2 F 91 H 18 138/76 97 09/11/20 21:33 09/12/20 09:31 09/11/20 22:00 09/12/20 09:31 09/12/20 08:47 Temperature -Last 24 Hours Temperature 98.2 F Temperature 98.4 F - Labs CBC & Chem 7: 09/10/20 07:28 09/12/20 08:20 Labs: Abnormal lab results 09/12/20 Range/Units 08:20 BUN 19 H (7-17) mg/dL Glucose 254 H (65-100) mg/dL Albumin 3.2 L (3.9-5) g/dL
--- NOTE | 2020-09-12 15:15 | Progress Note ---
Assessment and Plan 54-year-old female past medical history hypertension, diabetes, fibromyalgia was vaccinated against Covid in February admitted to the hospital with COVID-19 pneumonia. Chest x-ray showed: Mild patchy bilateral airspace opacities. A/P: --COVID-19 pneumonia: -ID consulted -Initiated on dexamethasone 6 mg IV/PO daily for 10 days and remdesivir 200 mg IV q day x 1 followed by 100 mg IV q day x 4 days -Obtain q48-72h inflammatory markers - ferritin, Ddimer, CRP, LDH -s/p ceftriaxone 2 gm IV qday and azithromycin 500 mg PO qday, procalcitonin <0.25 ng/mL stopped antibiotics -Anticoagulation per hospital protocol -Proning as able --Acute hypoxemic respiratory failure: Likely secondary to COVID-19 infection. required O2, improving, Currently on RA --Diabetes type 2: consistent carb diet with SSI --HTN, uncontrolled Initiated amlodipine, will cont to monitor --Nausea & vomiting Pepcid 20 mg IV every 12 hours. Zofran 4 mg IV every 6 hours as needed. We will monitor the patient closely --Hypokalemia, replete and repeat BMP tomorrow --DVT Px, on heparin Daily course: 09/10/20: Continue to follow inflammatory markers, patient currently on 4 L nasal cannula. ID consulted and initiated on dexamethasone remdesivir. Continue to monitor inflammatory markers. 09/11/20: Patient on 2 to 3 L nasal cannula O2 today. Continue to follow inflammatory markers, continue dexamethasone and remdesivir. 09/12/20: patient placed on RA today, if tolerates well o/n will d/c tomorrow. cont to follow inflammatory markers. Subjective Date of service: 09/12/20 Interval history: Patient seen and examined. Medical records and medication list reviewed. No acute event overnight noted by the RN. Patient resting on bed, on RA Discussed plan of care at bedside with patient. Objective - Exam Narrative Exam: Limited physical exam due to COVID-19 pandemic to minimize transmission of the disease and to preserve PPE. Vital reviewed and stable. GENERAL: well-developed well-nourished white female lying on bed appeared to be in no discomfort. HEENT: Normocephalic. Atraumatic. NECK: Supple. CHEST/LUNGS: breathing nonlabored. HEART/CARDIOVASCULAR: Heart rate stable on telemetry ABDOMEN: Visibly not distended SKIN: There is no rash NEURO: No focal motor deficit. Follows command. MUSCULOSKELETAL: No joint effusion EXTRIMITY: No swelling, no cyanosis or clubbing. PSYCH: Cooperative. - Constitutional Vitals: Vital Signs - 12hr 09/12/20 09/12/20 09/12/20 08:47 09:31 10:00 Pulse Rate 91 H Blood Pressure 138/76 O2 Sat by Pulse 97 96 Oximetry 09/12/20 13:30 Pulse Rate Blood Pressure O2 Sat by Pulse 92 Oximetry - Labs CBC & Chem 7: 09/10/20 07:28 09/13/20 03:21 Labs: Abnormal lab results 09/12/20 Range/Units 08:20 BUN 19 H (7-17) mg/dL Glucose 254 H (65-100) mg/dL Albumin 3.2 L (3.9-5) g/dL
[2020-09-12] MEDS: oxyCODONE /ACETAMINOPHEN 5-325MG TAB PO PRN (17:46)
[2020-09-12] MEDS: REMDESIVIR 100 MG in SODIUM CHLORIDE 0.9% 250ML 250 ML IV SCH (21:28)
[2020-09-12] MEDS: SODIUM CHLORIDE 0.9% 50 ML IVPB IV SCH (21:29)
[2020-09-12] MEDS: INSULIN GLARGINE 100 UNITS/ML SUB-Q SCH (22:08)
[2020-09-13 05:11] LABS: Alanine Aminotransferase 30 units/L (7-56); Albumin 3.7 g/dL (3.9-5); Blood Urea Nitrogen 20 mg/dL (7-17); Hemolysis Index 3
[2020-09-13 05:31] LABS: BUN/Creatinine Ratio 33
[2020-09-13] MEDS: HEPARIN 5,000 UNIT/1 ML VIAL SUB-Q SCH ×2 (06:37→14:32)
[2020-09-13] MEDS: INSULIN LISPRO 100 UNIT/ML SUB-Q SCH ×4 (08:27→12:02)
[2020-09-13] MEDS ORDERED: POTASSIUM CHLORIDE ER 20 MEQ TAB PO NR (09:00)
[2020-09-13 10:11] VITALS: BP 155/98
[2020-09-13] MEDS: dexAMETHasone 4 MG/ML VIAL IV SCH (10:12)
[2020-09-13] MEDS: FAMOTIDINE 20 MG/2 ML INJ IV SCH (10:12)
[2020-09-13] MEDS: METOPROLOL TARTRATE 25 MG TAB PO SCH (10:13)
[2020-09-13] MEDS: LOSARTAN 50 MG TAB PO SCH (10:14)
[2020-09-13] MEDS: DULoxetine 30 MG CAP PO SCH (10:14)
[2020-09-13] MEDS: busPIRone 5 MG TAB PO SCH (10:15)
[2020-09-13] MEDS: amLODIPine 10 MG TAB PO SCH (10:15)
[2020-09-13] MEDS: ONDANSETRON 4 MG/2 ML INJ IV PRN (10:31)
[2020-09-13] MEDS ORDERED: REMDESIVIR 100 MG in SODIUM CHLORIDE 0.9% 250ML 250 ML IV SCH (13:00)
[2020-09-13] MEDS ORDERED: SODIUM CHLORIDE 0.9% 50 ML IVPB IV SCH (13:00)
--- NOTE | 2020-09-13 13:46 | Discharge Summary ---
Providers - Providers Date of Admission: 09/09/20 04:21 Date of discharge: 09/13/20 Attending physician: MERLY DEL CID 09/08/20 23:35 Consult to Physician [CONS] Stat Comment: Consulting Provider: TRINA LA Physician Instructions: Reason For Exam: pneumonia 09/09/20 02:17 Consult to Dietitian/Nutrition [CONS] Routine Physician Instructions: Reason For Exam: Reason for Consult: Diet education Primary care physician: JON RODRIGUEZ Hospitalization Condition: Stable Hospital course: 54-year-old female past medical history hypertension, diabetes, fibromyalgia was vaccinated against Covid in February admitted to the hospital with COVID-19 pneumonia. Chest x-ray showed: Mild patchy bilateral airspace opacities. -Patient was tested positive for COVID. -CXR showed patchy parenchymal disease which represent pulmonary edema or atypical pneumonia -Placed on dexamethasone for total 10 days and remdesivir total 4 days -Antibiotic was discontinued as procalcitonin level was normal - Placed on Droplet/contact isolation, continuous SPO2 monitoring, supplemental oxygen as needed, pulmonary hygiene, prone to sleep, Vitamin C, vitamin D, zinc -Patient was given anticoagulation per protocol, Lasix IV as needed to prevent pulmonary edema -Infectious disease was consulted. Assessed for Home O2 requirement. -Patient's symptoms improved with current Mx and was assessed for home O2 requirement. - Patient was then discharged home in stable condition with outpt followup. Daily course: 09/10/20: Continue to follow inflammatory markers, patient currently on 4 L nasal cannula. ID consulted and initiated on dexamethasone remdesivir. Continue to monitor inflammatory markers. 09/11/20: Patient on 2 to 3 L nasal cannula O2 today. Continue to follow inflammatory markers, continue dexamethasone and remdesivir. 09/12/20: patient placed on RA today, if tolerates well o/n will d/c tomorrow. cont to follow inflammatory markers. 09/13/20: Patient remains on room air. ID recommended patient could be discharged early without completing remdesivir. Day 4 of remdesivir today. Patient will be discharged home after today's dose of remdesivir. Patient counseled to come back to the hospital if symptoms worsen. No home oxygen necessary. DC home with outpatient follow-up. A/P: --COVID-19 pneumonia: -ID consulted -Initiated on dexamethasone 6 mg IV/PO daily for 10 days and remdesivir 200 mg IV q day x 1 followed by 100 mg IV q day -Obtain q48-72h inflammatory markers - ferritin, Ddimer, CRP, LDH -s/p ceftriaxone 2 gm IV qday and azithromycin 500 mg PO qday, procalcitonin <0.25 ng/mL stopped antibiotics -Anticoagulation per hospital protocol -Proning as able --Acute hypoxemic respiratory failure: Likely secondary to COVID-19 infection. required O2, improving, Currently on RA --Diabetes type 2: consistent carb diet with SSI --HTN, uncontrolled Initiated amlodipine, will cont to monitor --Nausea & vomiting Pepcid 20 mg IV every 12 hours. Zofran 4 mg IV every 6 hours as needed. We will monitor the patient closely --Hypokalemia, repleted --DVT Px, on heparin Disposition: TO HOME OR SELFCARE Final Discharge Diagnosis (Prints w/discharge instructions): --COVID-19 pneumonia. --Acute hypoxic respiratory failure. --Diabetes mellitus type 2 with. --Hypokalemia. --Hypertension Time spent for discharge: 34 minutes Core Measure Documentation - Palliative Care Palliative Care/ Comfort Measures: Not Applicable - Core Measures Any of the following diagnoses?: none Exam - Physical Exam Narrative exam: Limited physical exam due to COVID-19 pandemic to minimize transmission of the disease and to preserve PPE. Vital reviewed and stable. GENERAL: well-developed well-nourished white female lying on bed appeared to be in no discomfort. HEENT: Normocephalic. Atraumatic. NECK: Supple. CHEST/LUNGS: breathing nonlabored. HEART/CARDIOVASCULAR: Heart rate stable on telemetry ABDOMEN: Visibly not distended SKIN: There is no rash NEURO: No focal motor deficit. Follows command. MUSCULOSKELETAL: No joint effusion EXTRIMITY: No swelling, no cyanosis or clubbing. PSYCH: Cooperative. - Constitutional Vitals: Temp Pulse Resp BP Pulse Ox 98.0 F 91 H 18 155/98 95 09/13/20 10:09/13/20 10:15 09/13/20 10:09 09/13/20 10:15 09/13/20 10:09 Plan Activity: advance as tolerated Weight Bearing Status: Weight Bear as Tolerated Diet: low fat, low salt, low carbohydrate Additional Instructions: Upon discharge patient should self-quarantine at home up to 2 weeks from the onset of symptoms. Patients should return to hospital regardless if they have worsening fevers or respiratory status. Follow up with: JON RODRIGUEZ MD [Primary Care Provider] - 7 Days Prescriptions: dexAMETHasone [Dexamethasone] 6 mg PO DAILY #5 tablet
[2020-09-13] MEDS ORDERED: ZINC SULFATE 220 MG CAP PO SCH (14:00)
[2020-09-13] MEDS ORDERED: CHOLECALCIFEROL (VIT D3) 5,000 UNIT TAB PO SCH (14:00)
[2020-09-13] MEDS ORDERED: ASCORBIC ACID 500 MG TAB PO SCH (14:00)
--- NOTE | 2020-09-13 15:37 | Progress Note ---
Assessment and Plan Cultures: Blood culture no growth so far Covid PCR: Positive A/P: 54-year-old female past medical history diabetes, hypertension, fibromya lgia admitted with COVID-19 pneumonia #COVID-19 pneumonia: Patient presented with 2-3 days of symptoms, chest x-ray with mild bilateral infiltrates. Antibiotic stopped due to normal procalcitonin #Acute hypoxemic respiratory failure: Likely secondary to COVID-19 infection. Currently on 2L NC #Diabetes: tight glycemic control for best outcomes. Recs: -Dexamethasone 6 mg IV/PO daily for 10 days -Remdesivir 200 mg IV q day x 1 followed by 100 mg IV q day x 4 days -Obtain q48-72h inflammatory markers - ferritin, Ddimer, CRP, LDH -Anticoagulation per hospital protocol -Proning as able 6MWT prior to discharge. No need to stay to complete remdesivir course if otherwise improved. Thank you for the consult, we will continue to follow. Melissa Alvarado MD [facility] O: [phone] F: [phone] Subjective Date of service: 09/13/20 Interval history: Afebrile, no acute change. On 2 L cannula. Objective - Exam Narrative Exam: Physical exam deferred to reduce risk of transmission of COVID-19. Please refer to primary team's note. - Constitutional Vitals: Vital Signs Temp Pulse Resp BP Pulse Ox 98.0 F 91 H 18 155/98 93 09/13/20 10:09 09/13/20 10:15 09/13/20 10:09 09/13/20 10:15 09/13/20 14:00 Temperature -Last 24 Hours Temperature 98.0 F Temperature 97.8 F Temperature 97.8 F Temperature 98.0 F - Labs CBC & Chem 7: 09/10/20 07:28 09/13/20 03:21 Labs: Abnormal lab results 09/13/20 Range/Units 03:21 Potassium 3.4 L (3.6-5.0) mmol/L BUN 20 H (7-17) mg/dL Glucose 194 H (65-100) mg/dL Albumin 3.7 L (3.9-5) g/dL
== END 2020-09-13 16:55 | disposition home or self-care (01) | DRG 177 ==
LOC: ED 20:50 → 3A 09-09 04:21
PROVIDERS: ADMIT Hospitalist; ATTEND Internal Medicine
DX: U07.1 COVID-19 (principal); J12.82 Pneumonia due to coronavirus disease 2019; J96.01 Acute respiratory failure with hypoxia; Z88.8 Allergy status to other drugs, medicaments and biological substances; I10 Essential (primary) hypertension; E11.9 Type 2 diabetes mellitus without complications; M79.7 Fibromyalgia; G43.909 Migraine, unspecified, not intractable, without status migrainosus; K21.9 Gastro-esophageal reflux disease without esophagitis; Z79.4 Long term (current) use of insulin; E87.6 Hypokalemia
CPT/HCPCS: 36415; 71046; 80048; 80053; 82728; 82962; 83615; 84145; 85025; 85379; 86140; 87040; 93005; 94640; 94644; 94760; G0378; J0360; J0456; J0696; J1100; J1644; J1815; J2405; J7050; U0003

== ENCOUNTER 2020-09-25 09:29 | Inpatient (IN) | payer BC ==
--- NOTE | 2020-09-25 10:41 | XRay Report ---
CHEST 2 VIEWS INDICATION / CLINICAL INFORMATION: tachycardia. COMPARISON: 09/08/2020 FINDINGS: SUPPORT DEVICES: None. HEART / MEDIASTINUM: No significant abnormality. LUNGS / PLEURA: No significant pulmonary or pleural abnormality. No pneumothorax. ADDITIONAL FINDINGS: No significant additional findings. IMPRESSION: 1. No acute findings. Signer Name: Sreedhar Centeno MD Signed: 09/25/2020 10:37 AM Workstation Name: [id number]
--- NOTE | 2020-09-25 11:27 | Event Note ---
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 Further treatment and workup at subsequent clinical providers discretion. Patient/guardian urged not to elope from the ED as their condition may be serious if not clinically assessed and managed. Initial orders include: labs, xr, ekg
[2020-09-25 12:08] LABS: BUN/Creatinine Ratio TNR; Blood Urea Nitrogen TNR mg/dL (7-17)
[2020-09-25 12:10] LABS: Alanine Aminotransferase TNR units/L (7-56); Albumin TNR g/dL (3.9-5); Calcium TNR mg/dL (8.4-10.2)
[2020-09-25 12:11] LABS: Hemolysis Index TNR
--- NOTE | 2020-09-25 13:27 | Electrocardiograph Report ---
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
[2020-09-25] MEDS ORDERED: LORazepam 2 MG/ML VIAL IV ONE (14:08)
[2020-09-25] MEDS ORDERED: ONDANSETRON 4 MG/2 ML INJ IV ONE (14:08)
[2020-09-25] MEDS ORDERED: SODIUM CHLORIDE 0.9% 1000 ML 1,000 ML IV ONE (14:08)
--- NOTE | 2020-09-25 14:12 | Emergency Department Report ---
HPI - General Chief Complaint: Arrhythmia/Palpitations Time Seen by Provider: 09/25/20 11:24 - HPI HPI: This is a 54-year-old female who presents to the emergency department with a complaint of palpitations, lower chest discomfort, nausea without vomiting, generalized fatigue and weakness, shortness of breath, and a mixed dry and productive cough. The patient was diagnosed with COVID-19 on 09/09 and spent about 1 week admitted to this hospital. The patient was vaccinated against COVID-19 back in February. She has a past medical history of [id number] diabetes, hypertension, GERD, high cholesterol, fibromyalgia. She denies any tobacco or illicit drug use. The lower chest discomfort increases whenever she eats or drinks something, but this does not feel like her typical GERD. Shortness of breath also worsens with exertion. She has not taken anything for symptoms today prior to presentation. Many of the symptoms were there when the patient had Covid, but she says that the fast heart rate is new for her. She checked her vitals at home and her heart rate was about 145 bpm. 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 NO TX NEEDED, C- section x3 - Social History Smoking Status: Never Smoker Substance Use Type: None - Medications Home Medications: Home Medications Medication Instructions Recorded Confirmed Last Taken Type DULoxetine [Cymbalta] 60 mg PO QDAY 03/18/20 09/09/20 09/08/20 History Metoprolol [Lopressor TAB] 1 tab PO DAILY 03/18/20 09/09/20 09/08/20 History Ondansetron HCl [Zofran] 8 mg PO DAILY 03/18/20 09/09/20 09/09/20 17:40 History Pantoprazole [Protonix TAB] 40 mg PO QDAY 03/18/20 09/09/20 09/09/20 17:40 History amLODIPine 5 mg PO DAILY 03/18/20 09/09/20 09/08/20 History busPIRone [Buspar] 5 mg PO DAILY 02/09/2809/09/20 09/08/20 History Insulin NPH Hum/Reg Insulin Hm 12 unit SQ BID 30 Days #5 vial 03/23/20 09/09/20 09/09/20 17:41 Rx [Novolin 70-30 100 Unit/ml Vial] Losartan [Cozaar] 100 mg PO QDAY 30 Days #30 tablet 03/23/20 09/09/20 09/08/20 Rx Flash Glucose Scanning [place] 1 each MC BID #60 each 03/24/20 09/09/20 09/09/20 17:41 Rx [Freestyle Ibrahima 14 Day [place]] Flash Glucose Sensor [Freestyle 1 each MC BID #60 each 03/24/20 09/09/20 09/09/20 17:41 Rx Ibrahima 14 Day Sensor] oxyCODONE /ACETAMINOPHEN [Percocet 1 tab PO Q8H PRN 2 Days #8 tablet 03/24/20 09/09/20 Unknown Rx 5/325 mg] Ascorbic Acid [Vitamin C] 1,000 mg PO BID #14 tablet 09/13/20 Unknown Rx Cholecalciferol (Vitamin D3) 5,000 unit PO DAILY #7 tablet 09/13/20 Unknown Rx [Vitamin D3] Zinc Sulfate 220 mg PO BID #14 capsule 09/13/20 Unknown Rx dexAMETHasone [Dexamethasone] 6 mg PO DAILY #5 tablet 09/13/20 Unknown Rx ED Review of Systems ROS: Stated complaint: HR 145/NAUSEA,WEAKNESS SINCE 09/08 TESTED COVID + Other details as noted in HPI Comment: All other systems reviewed and negative Constitutional: weakness. denies: fever Eyes: denies: eye pain, vision change ENT: denies: ear pain, throat pain Respiratory: cough, shortness of breath, SOB with exertion Cardiovascular: chest pain, palpitations. denies: edema Gastrointestinal: nausea. denies: abdominal pain, vomiting Genitourinary: denies: dysuria, discharge Musculoskeletal: myalgia. denies: joint swelling Skin: denies: rash, lesions Neurological: denies: numbness, paresthesias Physical Exam - Physical Exam Vital Signs: Vital Signs 09/25/20 09:35 Temperature 97.5 F L Pulse Rate 138 H Respiratory 18 Rate Blood Pressure 123/82 O2 Sat by Pulse 95 Oximetry Physical Exam: GENERAL: The patient is well-developed well-nourished. HENT: Normocephalic. Atraumatic. Patient has moist mucous membranes. EYES: Extraocular motions are intact. NECK: Supple. Trachea is midline. CHEST/LUNGS: Clear to auscultation. There is some tachypnea but no accessory muscle use. HEART/CARDIOVASCULAR: Regular. There is moderate tachycardia. There is no murmur. ABDOMEN: Abdomen is soft, nontender. Patient has normal bowel sounds. There is no abdominal distention. SKIN: Skin is warm and dry. NEURO: The patient is awake, alert, and oriented. The patient is cooperative. The patient has no focal neurologic deficits. Normal speech. MUSCULOSKELETAL: There is no tenderness or deformity. There is no limitation range of motion. ED Course Vital Signs 09/25/20 09:35 Temperature 97.5 F L Pulse Rate 138 H Respiratory 18 Rate Blood Pressure 123/82 O2 Sat by Pulse 95 Oximetry ED Medical Decision Making - Lab Data Result diagrams: 09/25/20 14:50 09/25/20 14:07 Lab Results 09/25/20 09/25/20 09/25/20 Range/Units 10:31 10:31 12:11 WBC (4.5-11.0) K/mm3 RBC (3.65-5.03) M/mm3 Hgb (10.1-14.3) gm/dl Hct (30.3-42.9) % MCV (79-97) fl MCH (28-32) pg MCHC RDW (13.2-15.2) % Plt Count (140-440) K/mm3 Add Manual Diff Total Counted Seg Neuts % (Manual) (40.0-70.0) % Lymphocytes % (Manual) (13.4-35.0) % Monocytes % (Manual) (0.0-7.3) % Eosinophils % (Manual) (0.0-4.3) % Basophils % (Manual) (0.0-1.8) % Nucleated RBC % Seg Neutrophils # Man (1.8-7.7) K/mm3 Band Neutrophils # K/mm3 Lymphocytes # (Manual) (1.2-5.4) K/mm3 Abs React Lymphs (Man) K/mm3 Monocytes # (Manual) (0.0-0.8) K/mm3 Eosinophils # (Manual) (0.0-0.4) K/mm3 Basophils # (Manual) (0.0-0.1) K/mm3 Metamyelocytes # K/mm3 Myelocytes # K/mm3 Promyelocytes # K/mm3 Blast Cells # K/mm3 WBC Morphology Hypersegmented Neuts Hyposegmented Neuts Hypogranular Neuts Smudge Cells Toxic Granulation Toxic Vacuolation Dohle Bodies Pelger-Huet Anomaly Jimena Rods Platelet Estimate Clumped Platelets Plt Clumps, EDTA Large Platelets Giant Platelets Platelet Satelliting Plt Morphology Comment RBC Morphology Dimorphic RBCs Polychromasia Hypochromasia Poikilocytosis Anisocytosis Microcytosis Macrocytosis Spherocytes Pappenheimer Bodies Sickle Cells Target Cells Tear Drop Cells Ovalocytes Helmet Cells Oliveira-Hansford Bodies [place] Cbc Base Rings Ervin Cells Bite Cells Crenated Cell Elliptocytes Acanthocytes (Spur) Rouleaux Hemoglobin C Crystals Schistocytes Malaria parasites Chetan Bodies Hem Pathologist Commnt PT 12.7 (12.2-14.9) Sec. INR 0.90 (0.87-1.13) APTT 37.3 H (24.2-36.6) Sec. D-Dimer > 06414 H (0-234) ng/mlDDU Sodium TNR Potassium TNR Chloride TNR Carbon Dioxide TNR Anion Gap TNR BUN TNR Creatinine TNR Estimated GFR > 60 ml/min BUN/Creatinine Ratio TNR Glucose TNR POC Glucose (70-105) mg/dL Calcium TNR Magnesium 1.90 (1.7-2.3) mg/dL Total Bilirubin TNR AST TNR ALT TNR Alkaline Phosphatase TNR Troponin T < 0.010 (0.00-0.029) ng/mL Total Protein TNR Albumin TNR Albumin/Globulin Ratio 1.1 % 09/25/20 09/25/20 09/25/20 Range/Units 14:07 14:50 14:50 WBC 14.1 H (4.5-11.0) K/mm3 RBC 4.35 (3.65-5.03) M/mm3 Hgb 19.1 H (10.1-14.3) gm/dl Hct 37.8 (30.3-42.9) % MCV 87 (79-97) fl MCH 44 H (28-32) pg MCHC Burrer Operator RDW 13.5 (13.2-15.2) % Plt Count 264 (140-440) K/mm3 Add Manual Diff Complete Total Counted 100 Seg Neuts % (Manual) 77.0 H (40.0-70.0) % Lymphocytes % (Manual) 12.0 L (13.4-35.0) % Monocytes % (Manual) 9.0 H (0.0-7.3) % Eosinophils % (Manual) 1.0 (0.0-4.3) % Basophils % (Manual) 1.0 (0.0-1.8) % Nucleated RBC % Not Reportable Seg Neutrophils # Man 10.9 H (1.8-7.7) K/mm3 Band Neutrophils # 0.0 K/mm3 Lymphocytes # (Manual) 1.7 (1.2-5.4) K/mm3 Abs React Lymphs (Man) 0.0 K/mm3 Monocytes # (Manual) 1.3 H (0.0-0.8) K/mm3 Eosinophils # (Manual) 0.1 (0.0-0.4) K/mm3 Basophils # (Manual) 0.1 (0.0-0.1) K/mm3 Metamyelocytes # 0.0 K/mm3 Myelocytes # 0.0 K/mm3 Promyelocytes # 0.0 K/mm3 Blast Cells # 0.0 K/mm3 WBC Morphology Not Reportable Hypersegmented Neuts Not Reportable Hyposegmented Neuts Not Reportable Hypogranular Neuts Not Reportable Smudge Cells Not Reportable Toxic Granulation Not Reportable Toxic Vacuolation Not Reportable Dohle Bodies Not Reportable Pelger-Huet Anomaly Not Reportable Jimena Rods Not Reportable Platelet Estimate Not Reportable Clumped Platelets Not Reportable Plt Clumps, EDTA Not Reportable Large Platelets Not Reportable Giant Platelets Not Reportable Platelet Satelliting Not Reportable Plt Morphology Comment Not Reportable RBC Morphology Normal Dimorphic RBCs Not Reportable Polychromasia Not Reportable Hypochromasia Not Reportable Poikilocytosis Not Reportable Anisocytosis Not Reportable Microcytosis Not Reportable Macrocytosis Not Reportable Spherocytes Not Reportable Pappenheimer Bodies Not Reportable Sickle Cells Not Reportable Target Cells Not Reportable Tear Drop Cells Not Reportable Ovalocytes Not Reportable Helmet Cells Not Reportable Oliveira-Hansford Bodies Not Reportable [place] Cbc Base Rings Not Reportable Ervin Cells Not Reportable Bite Cells Not Reportable Crenated Cell Not Reportable Elliptocytes Not Reportable Acanthocytes (Spur) Not Reportable Rouleaux Not Reportable Hemoglobin C Crystals Not Reportable Schistocytes Not Reportable Malaria parasites Not Reportable Chetan Bodies Not Reportable Hem Pathologist Commnt No PT (12.2-14.9) Sec. INR (0.87-1.13) APTT (24.2-36.6) Sec. D-Dimer > 45160 H (0-234) ng/mlDDU Sodium 112 L* Potassium 4.8 Chloride 74.4 L Carbon Dioxide 19 L Anion Gap 23 BUN 12 Creatinine 0.5 L Estimated GFR > 60 ml/min BUN/Creatinine Ratio 24 Glucose 528 H* POC Glucose (70-105) mg/dL Calcium 0.8 L* Magnesium (1.7-2.3) mg/dL Total Bilirubin 2.60 H AST 5 ALT 5 L Alkaline Phosphatase 105 Troponin T < 0.010 (0.00-0.029) ng/mL Total Protein 5.5 L Albumin 2.8 L Albumin/Globulin Ratio 1.0 % 09/25/20 Range/Units 16:48 WBC (4.5-11.0) K/mm3 RBC (3.65-5.03) M/mm3 Hgb (10.1-14.3) gm/dl Hct (30.3-42.9) % MCV (79-97) fl MCH (28-32) pg MCHC RDW (13.2-15.2) % Plt Count (140-440) K/mm3 Add Manual Diff Total Counted Seg Neuts % (Manual) (40.0-70.0) % Lymphocytes % (Manual) (13.4-35.0) % Monocytes % (Manual) (0.0-7.3) % Eosinophils % (Manual) (0.0-4.3) % Basophils % (Manual) (0.0-1.8) % Nucleated RBC % Seg Neutrophils # Man (1.8-7.7) K/mm3 Band Neutrophils # K/mm3 Lymphocytes # (Manual) (1.2-5.4) K/mm3 Abs React Lymphs (Man) K/mm3 Monocytes # (Manual) (0.0-0.8) K/mm3 Eosinophils # (Manual) (0.0-0.4) K/mm3 Basophils # (Manual) (0.0-0.1) K/mm3 Metamyelocytes # K/mm3 Myelocytes # K/mm3 Promyelocytes # K/mm3 Blast Cells # K/mm3 WBC Morphology Hypersegmented Neuts Hyposegmented Neuts Hypogranular Neuts Smudge Cells Toxic Granulation Toxic Vacuolation Dohle Bodies Pelger-Huet Anomaly Jimena Rods Platelet Estimate Clumped Platelets Plt Clumps, EDTA Large Platelets Giant Platelets Platelet Satelliting Plt Morphology Comment RBC Morphology Dimorphic RBCs Polychromasia Hypochromasia Poikilocytosis Anisocytosis Microcytosis Macrocytosis Spherocytes Pappenheimer Bodies Sickle Cells Target Cells Tear Drop Cells Ovalocytes Helmet Cells Oliveira-Hansford Bodies [place] Cbc Base Rings Ervin Cells Bite Cells Crenated Cell Elliptocytes Acanthocytes (Spur) Rouleaux Hemoglobin C Crystals Schistocytes Malaria parasites Chetan Bodies Hem Pathologist Commnt PT (12.2-14.9) Sec. INR (0.87-1.13) APTT (24.2-36.6) Sec. D-Dimer (0-234) ng/mlDDU Sodium Potassium Chloride Carbon Dioxide Anion Gap BUN Creatinine Estimated GFR ml/min BUN/Creatinine Ratio Glucose POC Glucose 456 H (70-105) mg/dL Calcium Magnesium (1.7-2.3) mg/dL Total Bilirubin AST ALT Alkaline Phosphatase Troponin T (0.00-0.029) ng/mL Total Protein Albumin Albumin/Globulin Ratio % - EKG Data -: EKG Interpreted by Me EKG shows normal: sinus rhythm, axis, intervals, QRS complexes (LVH, Q waves to the anteroseptal and inferior leads), ST-T waves Rate: tachycardia (136 bpm) - EKG Data When compared to previous EKG there are: no significant change Interpretation: unchanged when compared t (09/08/20) - Radiology Data Radiology results: report reviewed, image reviewed interpreted by me: Chest x-ray does not show any acute process. There are no pleural effusions, obvious pneumonia and there is no pneumothorax. No widened mediastinum. CTA CHEST WITH IV CONTRAST INDICATION: SOB, palpitations, elevated dimer 100 ml omni 350 . TECHNIQUE: Axial CT images were obtained through the chest after injection of IV contrast. 3 plane MIP reconstructions were produced. All CT scans at this location are performed using CT dose reduction for ALARA by means of automated exposure control. COMPARISON: None available. FINDINGS: Pulmonary Arteries: No pulmonary emboli. Lungs: No significant abnormality. Trachea and Bronchi: No significant abnormality. Heart and Pericardium: No significant abnormality. Vasculature: No significant abnormality. Lymphatics: No lymphadenopathy. Additional Findings: None. Upper Abdomen: Hepatic steatosis is noted. Skeletal Structures: No acute findings or aggressive bone lesions. IMPRESSION: 1. No CT evidence for pulmonary embolism. 2. No acute findings. - Medical Decision Making This patient presents to the emergency department with a complaint of shortness of breath, lower chest discomfort, palpitations with tachycardia, nausea, generalized weakness and fatigue. This has been going on since the patient was diagnosed with COVID-19 about 2 weeks ago but has recently worsened. The patient presents through triage with a heart rate of about 145 bpm. EKG shows sinus tachycardia but no morphology consistent with ST elevation myocardial infarction. Chest x-ray does not show any pneumonia, pleural effusions, pneumothorax, widened mediastinum, or any other acute process. The patient's labs show multiple abnormalities including severe hyponatremia with a sodium level of 112, hyperglycemia without DKA with a blood sugar level of about 500, hypocalcemia with a calcium level of 0.8, and a D-dimer level greater than 10,000. She had a CT angiography of the chest that did not show any pulmonary embolism, dissection, or any other acute process. The patient has been given IV fluid resuscitation for her hyponatremia, calcium gluconate for the hypocalcemia, and IV insulin for hyperglycemia. The patient will be admitted to the hospital for further evaluation and treatment and was accepted for admission by the hospitalist, Dr. Gomez. Critical Care Time: Yes Critical care time in (mins) excluding proc time.: 35 Critical care attestation.: If time is entered above; I have spent that time in minutes in the direct care of this critically ill patient, excluding procedure time. Critical care time was spent on this patient in doing her initial evaluation, multiple reevaluations, ordering and interpretation of labs and imaging, IV insulin for her hyperglycemia, IV fluid resuscitation for the hyponatremia, calcium gluconate for the hypercalcemia, and multiple discussions with the patient. Critical Care Time: 35 minutes ED Disposition Clinical Impression: COVID-19, Acute hyponatremia, Hypocalcemia, Uncontrolled diabetes mellitus, Tachycardia Disposition: ADMITTED INPATIENT Is pt being admited?: Yes Condition: Serious Time of Disposition: 18:32
[2020-09-25 14:54] LABS: Mean Corpuscular Volume 87 fl (79-97); Platelet Count 264 K/mm3 (140-440); Red Blood Count 4.35 M/mm3 (3.65-5.03); Red Cell Distribution Width 13.5 % (13.2-15.2)
[2020-09-25 15:39] LABS: Albumin 2.8 g/dL (3.9-5); Hemolysis Index 266
[2020-09-25 15:53] LABS: Alanine Aminotransferase 5 units/L (7-56); Blood Urea Nitrogen 12 mg/dL (7-17)
[2020-09-25 15:57] LABS: BUN/Creatinine Ratio 24
[2020-09-25 15:59] LABS: Calcium 0.8 mg/dL (8.4-10.2)
[2020-09-25] MEDS ORDERED: INSULIN REGULAR, HUMAN 100 UNITS/1 ML IV ONE (16:03)
[2020-09-25 16:13] LABS: Hemoglobin 19.1 gm/dl (10.1-14.3)
[2020-09-25 16:14] LABS: Hematocrit 37.8 % (30.3-42.9)
--- NOTE | 2020-09-25 16:19 | History and Physical Report ---
History of Present Illness Chief complaint: I feel sick History of present illness: 54 YO Female with DM, HTN, Fibromyalgia,HLD, GERD, Migraine JACKSON, Coronavirus Infection diagnosed 09/08/20 presents to ED for evaluation. Patient reports "I feel sick". Patient states that she has experienced subjective fever, shortness of breath, nausea, multiple episodes of vomiting, generalized weakness, malaise, body aches, over the past 3 days with persistently worsening symptoms over the same timeframe. Patient transported to [facility] via private vehicle for further care and evaluation of the aforementioned symptoms. The patient was seen and evaluated in the emergency department. All lab and imaging studies reviewed. Patient was found to have systemic inflammatory response syndrome as well as tachycardia suspected secondary to coronavirus prodrome. Patient admitted to medical floor due to increased risk of worsening symptoms. Patient initiated on coronavirus protocol. Patient has chest pain, palpitation, productive cough, skin rash, recent ill contacts. Patient stated that she is fully vaccinated against COVID-19 back in February. Prior admission on 09-28 reviewed. All medication listed at time of admission has been reconciled. Past History Past Medical History: diabetes, hypertension, hyperlipidemia, other (See HPI) Past Surgical History: , Other (Lung surgery) Social history: single. denies: smoking, alcohol abuse Family history: diabetes, hypertension Medications and Allergies Allergies Allergy/AdvReac Type Severity Reaction Status Date / Time clonidine Allergy Hives Verified 09/25/20 09:31 Home Medications Medication Instructions Recorded Confirmed Last Taken Type DULoxetine [Cymbalta] 60 mg PO QDAY 03/18/20 09/09/20 09/08/20 History Metoprolol [Lopressor TAB] 1 tab PO DAILY 03/18/20 09/09/20 09/08/20 History Ondansetron HCl [Zofran] 8 mg PO DAILY 03/18/20 09/09/20 09/09/20 17:40 History Pantoprazole [Protonix TAB] 40 mg PO QDAY 03/18/20 09/09/20 09/09/20 17:40 History amLODIPine 5 mg PO DAILY 03/18/20 09/09/20 09/08/20 History busPIRone [Buspar] 5 mg PO DAILY 03/18/20 09/09/20 09/08/20 History Insulin NPH Hum/Reg Insulin Hm 12 unit SQ BID 30 Days #5 vial 03/23/20 09/09/20 09/09/20 17:41 Rx [Novolin 70-30 100 Unit/ml Vial] Losartan [Cozaar] 100 mg PO QDAY 30 Days #30 tablet 03/23/20 09/09/20 09/08/20 Rx Flash Glucose Scanning [place] 1 each MC BID #60 each 03/24/20 09/09/20 09/09/20 17:41 Rx [Freestyle Ibrahima 14 Day [place]] Flash Glucose Sensor [Freestyle 1 each MC BID #60 each 03/24/20 09/09/20 09/09/20 17:41 Rx Ibrahima 14 Day Sensor] oxyCODONE /ACETAMINOPHEN [Percocet 1 tab PO Q8H PRN 2 Days #8 tablet 03/24/20 09/09/20 Unknown Rx 5/325 mg] Ascorbic Acid [Vitamin C] 1,000 mg PO BID #14 tablet 09/13/20 Unknown Rx Cholecalciferol (Vitamin D3) 5,000 unit PO DAILY #7 tablet 09/13/20 Unknown Rx [Vitamin D3] Zinc Sulfate 220 mg PO BID #14 capsule 09/13/20 Unknown Rx dexAMETHasone [Dexamethasone] 6 mg PO DAILY #5 tablet 09/13/20 Unknown Rx Review of Systems Constitutional: fever, weakness, malaise, lethargy Ears, nose, mouth and throat: no ear pain, no ear discharge, no nasal congestion Breasts: no change in shape, no swelling, no mass Cardiovascular: rapid/irregular heart beat, no chest pain, no claudication, no high blood pressure Respiratory: cough, shortness of breath, no hemoptysis Gastrointestinal: nausea, vomiting, no abdominal pain, no diarrhea, no constipation, no change in bowel habits Genitourinary Female: no pelvic pain, no flank pain, no dysuria, no urinary frequency, no urgency Rectal: no pain, no incontinence, no bleeding Musculoskeletal: no neck stiffness, no neck pain, no shooting arm pain, no shooting leg pain, no leg numbness/tingling Integumentary: no rash, no pruritis, no redness, no sores, no wounds, no boils, no blisters Neurological: no transient paralysis, no paralysis, no weakness, no numbness, no seizures, no tremors Psychiatric: no anxiety, no sleep disturbances, no insomnia, no change in appetite, no change in libido, no suicidal ideation Endocrine: no cold intolerance, no heat intolerance, no excessive thirst, no p olydipsia, no nocturia Hematologic/Lymphatic: no easy bruising, no easy bleeding Allergic/Immunologic: no allergic rhinitis, no wheezing Exam - Constitutional Vitals: Temp Pulse Resp BP Pulse Ox 97.5 F L 121 H 18 146/84 95 09/25/20 09:35 09/25/20 14:34 09/25/20 14:34 09/25/20 14:34 09/25/20 14:38 General appearance: Present: mild distress - EENT Eyes: Present: PERRL ENT: hearing intact, clear oral mucosa - Neck Neck: Present: supple, normal ROM - Respiratory Respiratory effort: normal Respiratory: bilateral: CTA - Cardiovascular Heart Sounds: Present: S1 & S2. Absent: rub, click - Extremities Extremities: pulses symmetrical, No edema Peripheral Pulses: within normal limits - Abdominal General gastrointestinal: Present: soft, non-tender, non-distended, normal bowel sounds Female genitourinary: Present: normal - Integumentary Integumentary: Present: clear, warm, dry - Musculoskeletal Musculoskeletal: gait normal, strength equal bilaterally - Psychiatric Psychiatric: appropriate mood/affect, intact judgment & insight - Neurologic Neurologic: CNII-XII intact, moves all extremities HEART Score - HEART Score Troponin: Troponin T < 0.010 ng/mL (0.00-0.029) 09/25/20 14:07 Results - Labs CBC & Chem 7: 09/25/20 14:50 09/25/20 14:07 Labs: Abnormal lab results 09/25/20 09/25/20 09/25/20 Range/Units 14:07 14:50 14:50 WBC 14.1 H (4.5-11.0) K/mm3 Hgb 19.1 H (10.1-14.3) gm/dl MCH 44 H (28-32) pg D-Dimer > 49509 H (0-234) ng/mlDDU Sodium 112 L* (137-145) mmol/L Chloride 74.4 L (98-107) mmol/L Carbon Dioxide 19 L (22-30) mmol/L Creatinine 0.5 L (0.6-1.2) mg/dL Glucose 528 H* (65-100) mg/dL Calcium 0.8 L* (8.4-10.2) mg/dL Total Bilirubin 2.60 H (0.1-1.2) mg/dL ALT 5 L (7-56) units/L Total Protein 5.5 L (6.3-8.2) g/dL Albumin 2.8 L (3.9-5) g/dL Assessment and Plan - Patient Problems (1) Systemic inflammatory response syndrome Current Visit: Yes Status: Acute Plan to address problem: CBC, CMP, chest x-ray, urinalysis, IV fluid resuscitation therapy, IV antibiotic therapy, (2) COVID-19 Current Visit: Yes Status: Acute Plan to address problem: Coronavirus protocol: Supplemental oxygen, pulse oximetry, nebulizer therapy, prone positioning while in bed, vitamin C therapy, vitamin D therapy, zinc therapy, IV steroid therapy, coronavirus PCR ordered and is pending at time of admission (3) Hyponatremia Current Visit: Yes Status: Acute Plan to address problem: IV fluid resuscitation therapy, correct serum glucose, repeat BMP in a.m. (4) Uncontrolled diabetes mellitus Current Visit: Yes Status: Acute Plan to address problem: Insulin protocol, consistent carbohydrate diet, Accu-Chek, hypoglycemia protocol (5) DVT prophylaxis Current Visit: Yes Status: Acute Plan to address problem: SCD to bilateral lower extremities while in bed, prophylactic anticoagulation
[2020-09-25] MEDS ORDERED: CALCIUM GLUCONATE 2,000 MG in SODIUM CHLORIDE 0.9% 100 ML IV ONE (17:00)
[2020-09-25 17:16] LABS: RBC Morphology Normal; Total Cells Counted 100
[2020-09-25] MEDS ORDERED: ALBUTEROL 2.5 MG/3 ML NEBU IH PRN (17:30)
--- NOTE | 2020-09-25 17:30 | Cat Scan Report ---
CTA CHEST WITH IV CONTRAST INDICATION: SOB, palpitations, elevated dimer 100 ml omni 350 . TECHNIQUE: Axial CT images were obtained through the chest after injection of IV contrast. 3 plane MIP reconstru ctions were produced. All CT scans at this location are performed using CT dose reduction for ALARA b y means of automated exposure control. COMPARISON: None available. FINDINGS: Pulmonary Arteries: No pulmonary emboli. Lungs: No significant abnormality. Trachea and Bronchi: No significant abnormality. Heart and Pericardium: No significant abnormality. Vasculature: No significant abnormality. Lymphatics: No lymphadenopathy. Additional Findings: None. Upper Abdomen: Hepatic steatosis is noted. Skeletal Structures: No acute findings or aggressive bone lesions. IMPRESSION: 1. No CT evidence for pulmonary embolism. 2. No acute findings. Signer Name: Sreedhar Centeno MD Signed: 09/25/2020 5:26 PM Workstation Name: [id number]
[2020-09-25] MEDS: AZITHROMYCIN/NS 500 MG/250 ML 500 MG/250 ML BAG IV SCH (17:32)
[2020-09-25 17:39] LABS: Partial Thromboplastin Time 37.3 Sec. (24.2-36.6)
[2020-09-25] MEDS: ZINC SULFATE 220 MG CAP PO SCH (21:47)
[2020-09-25] MEDS: ASCORBIC ACID 500 MG TAB PO SCH (21:47)
[2020-09-25] MEDS: methylPREDNISolone Sod Succinate 40 MG/1 ML INJ IV SCH (21:47)
[2020-09-25] MEDS: ONDANSETRON 4 MG/2 ML INJ IV PRN (21:47)
[2020-09-25] MEDS: HEPARIN 5,000 UNIT/1 ML VIAL SUB-Q SCH (21:47)
[2020-09-25] MEDS: oxyCODONE /ACETAMINOPHEN 5-325MG TAB PO PRN (21:58)
[2020-09-26] MEDS: ONDANSETRON 4 MG/2 ML INJ IV PRN ×2 (04:10→13:26)
[2020-09-26] MEDS: ACETAMINOPHEN 325 MG TAB PO PRN ×2 (04:10→13:26)
[2020-09-26] MEDS: methylPREDNISolone Sod Succinate 40 MG/1 ML INJ IV SCH ×3 (06:38→22:12)
[2020-09-26 06:39] LABS: C-Reactive Protein 3.5 mg/dL (0.00-1.30)
[2020-09-26 06:40] LABS: Hemolysis Index 109
[2020-09-26 06:52] LABS: Blood Urea Nitrogen 14 mg/dL (7-17)
[2020-09-26 06:58] LABS: Basophils % (Auto) 0.6 % (0.0-1.8); Eosinophils % (Auto) 0.1 % (0.0-4.3); Hematocrit 37.9 % (30.3-42.9); Hemoglobin 13.3 gm/dl (10.1-14.3); Lymphocytes # (Auto) 0.7 K/mm3 (1.2-5.4); Lymphocytes % (Auto) 8.4 % (13.4-35.0); Mean Corpuscular HGB Conc 35 % (30-34); Mean Corpuscular Volume 89 fl (79-97); Monocytes # (Auto) 0.1 K/mm3 (0.0-0.8); Monocytes % (Auto) 1.3 % (0.0-7.3); Platelet Count 220 K/mm3 (140-440); Red Blood Count 4.27 M/mm3 (3.65-5.03); Red Cell Distribution Width 13.3 % (13.2-15.2)
[2020-09-26] MEDS ORDERED: SODIUM CHLORIDE 0.9% 1000 ML 1,000 ML ONE (07:37)
[2020-09-26] MEDS ORDERED: SODIUM CHLORIDE 0.9% 1000 ML 1,000 ML IV ONE (07:47)
[2020-09-26] MEDS: INSULIN REGULAR, HUMAN 100 UNITS/1 ML SUB-Q SCH ×4 (08:18→22:03)
[2020-09-26] MEDS: INSULIN GLARGINE 100 UNITS/ML SUB-Q SCH (09:04)
[2020-09-26 09:38] LABS: BUN/Creatinine Ratio TNR; Calcium TNR mg/dL (8.4-10.2)
[2020-09-26] MEDS ORDERED: CHOLECALCIFEROL (VIT D3) 1000 UNIT (25 mcg) TAB PO SCH (10:00)
--- NOTE | 2020-09-26 10:00 | Progress Note ---
Subjective Date of service: 09/26/20 Objective - Vital Signs Vital signs: Vital Signs - 12hr 09/25/20 09/25/20 09/25/20 22:01 22:31 22:58 Pulse Rate 126 H 118 H Respiratory 19 23 18 Rate Blood Pressure 172/99 168/94 O2 Sat by Pulse 93 93 Oximetry 09/25/20 09/25/20 09/26/20 23:01 23:31 00:01 Pulse Rate 116 H 114 H 113 H Respiratory 22 17 19 Rate Blood Pressure 147/92 142/78 129/76 O2 Sat by Pulse 92 93 92 Oximetry 09/26/20 09/26/20 09/26/20 00:31 00:44 01:01 Pulse Rate 108 H 107 H Respiratory 21 19 Rate Blood Pressure 140/82 134/89 O2 Sat by Pulse 91 95 91 Oximetry 09/26/20 09/26/20 09/26/20 01:31 02:01 02:30 Pulse Rate 108 H 108 H 106 H Respiratory 18 19 18 Rate Blood Pressure 131/78 130/84 143/83 O2 Sat by Pulse 90 92 93 Oximetry 09/26/20 09/26/20 09/26/20 03:00 03:30 04:00 Pulse Rate 104 H 107 H 110 H Respiratory 18 16 25 H Rate Blood Pressure 140/82 140/82 160/106 O2 Sat by Pulse 93 94 96 Oximetry 09/26/20 09/26/20 09/26/20 04:10 04:30 05:00 Pulse Rate 112 H 114 H Respiratory 20 21 21 Rate Blood Pressure 147/94 133/84 O2 Sat by Pulse 93 92 Oximetry 09/26/20 09/26/20 09/26/20 05:10 05:30 07:00 Pulse Rate 117 H Respiratory 20 26 H Rate Blood Pressure 147/94 150/94 O2 Sat by Pulse 94 92 Oximetry 09/26/20 09/26/20 09/26/20 07:30 08:00 08:30 Pulse Rate Respiratory Rate Blood Pressure 150/94 141/62 150/81 O2 Sat by Pulse 93 95 96 Oximetry - Lab 09/26/20 15:07 09/26/20 15:00 Most recent lab results Calcium TNR 09/26/20 05:36 Magnesium 1.90 mg/dL (1.7-2.3) 09/25/20 10:31 Medications & Allergies - Medications Allergies/Adverse Reactions: Allergies clonidine Allergy (Verified 09/25/20 09:31) Hives Home Medications: Home Medications Medication Instructions Recorded Confirmed Last Taken Type DULoxetine [Cymbalta] 60 mg PO QDAY 03/18/20 09/26/20 09/08/20 History Metoprolol [Lopressor TAB] 1 tab PO DAILY 03/18/20 09/26/20 09/08/20 History Ondansetron HCl [Zofran] 8 mg PO DAILY 03/18/20 09/26/20 09/09/20 17:40 History Pantoprazole [Protonix TAB] 40 mg PO QDAY 03/18/20 09/26/20 09/09/20 17:40 History amLODIPine 5 mg PO DAILY 03/18/20 09/26/20 09/08/20 History busPIRone [Buspar] 5 mg PO DAILY 03/18/20 09/26/20 09/08/20 History Insulin NPH Hum/Reg Insulin Hm 12 unit SQ BID 30 Days #5 vial 03/23/20 09/26/20 09/09/20 17:41 Rx [Novolin 70-30 100 Unit/ml Vial] Losartan [Cozaar] 100 mg PO QDAY 30 Days #30 tablet 03/23/20 09/26/20 09/08/20 Rx Flash Glucose Scanning [place] 1 each BID #60 each 03/24/20 09/26/20 09/09/20 17:41 Rx [Freestyle Ibrahima 14 Day [place]] Flash Glucose Sensor [Freestyle 1 each BID #60 each 03/24/20 09/26/2003/31 17:41 Rx Ibrahima 14 Day Sensor] oxyCODONE /ACETAMINOPHEN [Percocet 1 tab PO Q8H PRN 2 Days #8 tablet 03/24/20 09/26/20 Unknown Rx 5/325 mg] Ascorbic Acid [Vitamin C] 1,000 mg PO BID #14 tablet 09/13/20 09/26/20 Unknown Rx Cholecalciferol (Vitamin D3) 5,000 unit PO DAILY #7 tablet 09/13/20 09/26/20 Unknown Rx [Vitamin D3] Zinc Sulfate 220 mg PO BID #14 capsule 09/13/20 09/26/20 Unknown Rx dexAMETHasone [Dexamethasone] 6 mg PO DAILY #5 tablet 09/13/20 09/26/20 Unknown Rx Active Medications: Generic Name Dose Route Start Last Admin Trade Name Freq PRN Reason Stop Dose Admin Acetaminophen 650 mg 09/25/20 17:30 09/26/20 04:10 Acetaminophen 325 Mg Tab PO 650 mg Q4H PRN Administration Pain MILD(1-3)/Fever >100.5/[place]ACK[place] Albuterol 2.5 mg 09/25/20 17:30 Albuterol 2.5 Mg/3 Ml Nebu IH Q4HRT PRN Shortness Of Breath Ascorbic Acid 500 mg 09/25/20 22:00 09/25/20 21:47 Ascorbic Acid 500 Mg Tab PO 500 mg BID GUDELIA Administration Cholecalciferol 1,000 unit 09/26/20 10:00 Cholecalciferol (Vit D3) 1000 Unit (25 Mcg) Tab PO QDAY GUDELIA Heparin Sodium (Porcine) 5,000 unit 09/25/20 22:00 09/25/20 21:47 Heparin 5,000 Unit/1 Ml Vial SUB-Q 5,000 unit Q12HR GUDELIA Administration Hydromorphone HCl 0.5 mg 09/25/20 17:30 Hydromorphone 1 Mg/1 Ml Inj IV Q12H PRN Pain , Severe (7-10) Azithromycin 500 mg in 250 mls @ 250 mls/hr 09/25/20 18:00 09/25/20 17:32 Zithromax/Ns IV 09/29/20 18:59 250 mls/hr Q24H GUDELIA Administration Sodium Chloride 1,000 mls @ 125 mls/hr 09/26/20 08:00 Nacl 0.9% 1000 Ml IV DIRECT [facility] Insulin Glargine 10 units 09/26/20 08:00 09/26/20 09:04 Insulin Glargine 100 Units/Ml SUB-Q 10 units QAMDIAB GUDELIA Administration Insulin Human Regular 0 units 09/26/20 08:00 09/26/20 08:18 Insulin Regular, Human 100 Units/1 Ml SUB-Q 15 units Q4H GUDELIA Administration Protocol Methylprednisolone Sodium Succinate 40 mg 09/25/20 22:00 09/26/20 06:38 Methylprednisolone Sod Succinate 40 Mg/1 Ml Inj IV 40 mg Q8HR GUDELIA Administration Ondansetron HCl 4 mg 09/25/20 17:30 09/26/20 04:10 Ondansetron 4 Mg/2 Ml Inj IV 4 mg Q8H PRN Administration Nausea And Vomiting Oxycodone/Acetaminophen 1 tab 09/25/20 17:30 09/25/20 21:58 Oxycodone /Acetaminophen 5-325mg Tab PO 1 tab Q12H PRN Administration Pain, Moderate (4-6) Sodium Chloride 10 ml 09/25/20 22:00 09/25/20 21:47 Sodium Chloride 0.9% 10 Ml Flush Syringe IV 10 ml BID GUDELIA Administration Sodium Chloride 10 ml 09/25/20 17:30 Sodium Chloride 0.9% 10 Ml Flush Syringe IV PRN PRN LINE FLUSH Zinc Sulfate 220 mg 09/25/20 22:00 09/25/20 21:47 Zinc Sulfate 220 Mg Cap PO 220 mg BID GUDELIA Administration
[2020-09-26] MEDS ORDERED: NON-FORMULARY EACH (Amlodipine 10 MG) PO SCH (10:15)
[2020-09-26] MEDS: ASCORBIC ACID 500 MG TAB PO SCH ×3 (10:19→22:45)
[2020-09-26] MEDS: ZINC SULFATE 220 MG CAP PO SCH ×2 (10:19→22:11)
[2020-09-26] MEDS: HEPARIN 5,000 UNIT/1 ML VIAL SUB-Q SCH (10:21)
[2020-09-26] MEDS: busPIRone 5 MG TAB PO SCH (11:30)
[2020-09-26] MEDS ORDERED: INSULIN REGULAR, HUMAN 100 UNITS/1 ML SUB-Q SCH (11:30)
[2020-09-26] MEDS: amLODIPine 10 MG TAB PO SCH (11:31)
[2020-09-26] MEDS: PANTOPRAZOLE 40 MG TAB PO SCH (11:32)
[2020-09-26] MEDS: DULoxetine 30 MG CAP PO SCH (11:32)
[2020-09-26] MEDS: SODIUM CHLORIDE 1 GM TAB PO SCH ×2 (11:33→13:51)
[2020-09-26] MEDS: SODIUM BICARBONATE 650 MG TAB PO SCH ×3 (11:33→22:58)
[2020-09-26 11:38] LABS: Hemoglobin 13.3 gm/dl (10.1-14.3); Red Blood Count 4.27 M/mm3 (3.65-5.03)
[2020-09-26 11:40] LABS: Basophils % (Auto) 0.6 % (0.0-1.8); Eosinophils % (Auto) 0.1 % (0.0-4.3); Lymphocytes % (Auto) 8.4 % (13.4-35.0); Monocytes % (Auto) 1.3 % (0.0-7.3)
[2020-09-26 11:41] LABS: Lymphocytes # (Auto) 0.7 K/mm3 (1.2-5.4); Monocytes # (Auto) 0.1 K/mm3 (0.0-0.8)
[2020-09-26 11:46] LABS: Hematocrit 37.9 % (30.3-42.9)
[2020-09-26 11:47] LABS: Mean Corpuscular Volume 89 fl (79-97)
[2020-09-26 11:48] LABS: Mean Corpuscular HGB Conc 35 % (30-34); Red Cell Distribution Width 13.3 % (13.2-15.2)
[2020-09-26 11:49] LABS: Platelet Count 220 K/mm3 (140-440)
[2020-09-26 12:08] LABS: Bilirubin,Urine NEG (Negative); Blood,Urine NEG (Negative); Color,Urine Straw (Yellow); RBC,Urine < 1.0 /HPF (0.0-6.0); Urobilinogen,Urine < 2.0 mg/dL (<2.0); WBC,Urine < 1.0 /HPF (0.0-6.0)
[2020-09-26 12:14] LABS: BUN/Creatinine Ratio 26; Blood Urea Nitrogen 57 mg/dL (7-17); Hemolysis Index 32
[2020-09-26 12:31] LABS: Osmolality,Urine 695 Mosm/kg
[2020-09-26 12:52] LABS: Calcium TNR mg/dL (8.4-10.2)
[2020-09-26] MEDS: SODIUM CHLORIDE 0.9% 1000 ML 1,000 ML IV SCH ×2 (13:51→23:00)
--- NOTE | 2020-09-26 14:39 | Event Note ---
Date: 09/26/20 OH MARK Spoke to the staff at the lab and asked to do BMP now.
--- NOTE | 2020-09-26 14:59 | Progress Note ---
Assessment and Plan The patient is a 54 YO female with DM, HTN, HLD, Fibromyalgia, GERD, Migraine and Coronavirus Infection (diagnosed 09/08/20) who presented to [facility] ED with c/o fever, shortness of breath, nausea, multiple episodes of vomiting, decreased PO intake, generalized weakness, malaise, body aches, over the past 3 weeks since she was diagnosed with Covid. For the pas few she also experienced unsteady gait. In the ER Labs significant for Sodium 112, Glu 528 and bicarb 18. CTA chest negative for PE and any acute process. Nephrology was consulted for evaluation and treatment of Hyponatremia. Assessment and plan: -- Systemic inflammatory response syndrome follow cx, urinalysis, IV fluid resuscitation therapy, IV antibiotic therapy, -- h/o COVID-19 diagnosed 09/08/20 coronavirus PCR ordered and is pending at time of admission follow COVID protocol till we have the result -- Hyponatremia likely due to severe hyperglycemia IV fluid resuscitation therapy, correct serum glucose, repeat BMP in a.m. -- Uncontrolled diabetes mellitus with hyperosmolality adjust Insulin for better glycemic control, consistent carbohydrate diet, Accu- Chek, hypoglycemia protocol --Elevated D-dimer, CTA chest is negative for PE --HTN, cont antihypertensives and adjust medications as needed --HLD, cont statin and tricor --fibromyalgia, cont supportive care --GERD, cont PPI -- DVT prophylaxis SCD to bilateral lower extremities while in bed Daily clinical course: 09/26/20; pending COVID-19 test, initiated on SSI every 4 hours along with Lantus, continue to follow serum blood glucose and BMP every 4 hours. Nephrology consulted, recommendation. Subjective Date of service: 09/26/20 Interval history: Patient seen and examined. Medical records and medication list reviewed. No acute event overnight noted by the RN. Patient complains of generalized weakness. She stated that she was not able to take her insulin for last few days following discharge from her recent hospitalization Discussed plan of care at bedside with patient. Objective - Exam Narrative Exam: General appearance: Present: mild distress - EENT Eyes: Present: PERRL ENT: hearing intact, clear oral mucosa - Neck Neck: Present: supple, normal ROM - Respiratory Respiratory effort: normal Respiratory: bilateral: CTA - Cardiovascular Heart Sounds: Present: S1 & S2. Absent: rub, click - Extremities Extremities: pulses symmetrical, No edema Peripheral Pulses: within normal limits - Abdominal General gastrointestinal: Present: soft, non-tender, non-distended, normal bowel sounds Female genitourinary: Present: normal - Integumentary Integumentary: Present: clear, warm, dry - Musculoskeletal Musculoskeletal: gait normal, strength equal bilaterally - Psychiatric Psychiatric: appropriate mood/affect, intact judgment & insight - Neurologic Neurologic: CNII-XII intact, moves all extremities - Constitutional Vitals: Vital Signs - 12hr 09/26/20 09/26/20 09/26/20 03:00 03:30 04:00 Pulse Rate 104 H 107 H 110 H Respiratory 18 16 25 H Rate Blood Pressure 140/82 140/82 160/106 O2 Sat by Pulse 93 94 96 Oximetry 09/26/20 09/26/20 09/26/20 04:10 04:30 05:00 Pulse Rate 112 H 114 H Respiratory 20 21 21 Rate Blood Pressure 147/94 133/84 O2 Sat by Pulse 93 92 Oximetry 09/26/20 09/26/20 09/26/20 05:10 05:30 07:00 Pulse Rate 117 H Respiratory 20 26 H Rate Blood Pressure 147/94 150/94 O2 Sat by Pulse 94 92 Oximetry 09/26/20 09/26/20 09/26/20 07:30 08:00 08:30 Pulse Rate Respiratory Rate Blood Pressure 150/94 141/62 150/81 O2 Sat by Pulse 93 95 96 Oximetry 09/26/20 09/26/20 09/26/20 09:00 09:30 10:00 Pulse Rate Respiratory Rate Blood Pressure 176/90 176/90 176/90 O2 Sat by Pulse 96 97 95 Oximetry 09/26/20 09/26/20 09/26/20 10:30 11:00 11:30 Pulse Rate Respiratory Rate Blood Pressure 176/90 128/88 128/88 O2 Sat by Pulse 95 96 96 Oximetry 09/26/20 09/26/20 09/26/20 11:31 12:00 14:01 Pulse Rate 95 H 116 H 126 H Respiratory 19 22 Rate Blood Pressure 128/88 141/79 150/83 O2 Sat by Pulse 96 96 Oximetry 09/26/20 14:31 Pulse Rate 126 H Respiratory 18 Rate Blood Pressure 169/99 O2 Sat by Pulse 98 Oximetry - Labs CBC & Chem 7: 09/28/20 04:18 09/28/20 04:18 Labs: Abnormal lab results 09/25/20 09/25/20 09/25/20 Range/Units 12:11 14:07 14:50 WBC 14.1 H (4.5-11.0) K/mm3 Hgb 19.1 H (10.1-14.3) gm/dl MCH 44 H (28-32) pg MCHC (30-34) % Lymph % (Auto) (13.4-35.0) % Lymph # (Auto) (1.2-5.4) K/mm3 Seg Neutrophils % (40.0-70.0) % Seg Neuts % (Manual) 77.0 H (40.0-70.0) % Lymphocytes % (Manual) 12.0 L (13.4-35.0) % Monocytes % (Manual) 9.0 H (0.0-7.3) % Seg Neutrophils # (1.8-7.7) K/mm3 Seg Neutrophils # Man 10.9 H (1.8-7.7) K/mm3 Monocytes # (Manual) 1.3 H (0.0-0.8) K/mm3 APTT 37.3 H (24.2-36.6) Sec. D-Dimer > 93077 H (0-234) ng/mlDDU Sodium 112 L* (137-145) mmol/L Chloride 74.4 L (98-107) mmol/L Carbon Dioxide 19 L (22-30) mmol/L BUN (7-17) mg/dL Creatinine 0.5 L (0.6-1.2) mg/dL Glucose 528 H* (65-100) mg/dL POC Glucose (70-105) mg/dL Uric Acid (3.5-7.6) mg/dL Calcium 0.8 L* (8.4-10.2) mg/dL Phosphorus (2.5-4.5) mg/dL Total Bilirubin 2.60 H (0.1-1.2) mg/dL ALT 5 L (7-56) units/L C-Reactive Protein (0.00-1.30) mg/dL Total Protein 5.5 L (6.3-8.2) g/dL Albumin 2.8 L (3.9-5) g/dL 09/25/20 09/25/20 09/26/20 Range/Units 14:50 16:48 05:36 WBC (4.5-11.0) K/mm3 Hgb (10.1-14.3) gm/dl MCH (28-32) pg MCHC (30-34) % Lymph % (Auto) (13.4-35.0) % Lymph # (Auto) (1.2-5.4) K/mm3 Seg Neutrophils % (40.0-70.0) % Seg Neuts % (Manual) (40.0-70.0) % Lymphocytes % (Manual) (13.4-35.0) % Monocytes % (Manual) (0.0-7.3) % Seg Neutrophils # (1.8-7.7) K/mm3 Seg Neutrophils # Man (1.8-7.7) K/mm3 Monocytes # (Manual) (0.0-0.8) K/mm3 APTT (24.2-36.6) Sec. D-Dimer > 94883 H (0-234) ng/mlDDU Sodium (137-145) mmol/L Chloride (98-107) mmol/L Carbon Dioxide (22-30) mmol/L BUN (7-17) mg/dL Creatinine (0.6-1.2) mg/dL Glucose (65-100) mg/dL POC Glucose 456 H (70-105) mg/dL Uric Acid (3.5-7.6) mg/dL Calcium (8.4-10.2) mg/dL Phosphorus (2.5-4.5) mg/dL Total Bilirubin (0.1-1.2) mg/dL ALT (7-56) units/L C-Reactive Protein 3.50 H (0.00-1.30) mg/dL Total Protein (6.3-8.2) g/dL Albumin (3.9-5) g/dL 09/26/20 09/26/20 09/26/20 Range/Units 05:36 05:36 07:36 WBC (4.5-11.0) K/mm3 Hgb (10.1-14.3) gm/dl MCH (28-32) pg MCHC 35 H (30-34) % Lymph % (Auto) 8.4 L (13.4-35.0) % Lymph # (Auto) 0.7 L (1.2-5.4) K/mm3 Seg Neutrophils % 89.6 H (40.0-70.0) % Seg Neuts % (Manual) (40.0-70.0) % Lymphocytes % (Manual) (13.4-35.0) % Monocytes % (Manual) (0.0-7.3) % Seg Neutrophils # 8.0 H (1.8-7.7) K/mm3 Seg Neutrophils # Man (1.8-7.7) K/mm3 Monocytes # (Manual) (0.0-0.8) K/mm3 APTT (24.2-36.6) Sec. D-Dimer (0-234) ng/mlDDU Sodium 112 L* (137-145) mmol/L Chloride 76.9 L (98-107) mmol/L Carbon Dioxide 20 L (22-30) mmol/L BUN (7-17) mg/dL Creatinine (0.6-1.2) mg/dL Glucose (65-100) mg/dL POC Glucose > 600 H (70-105) mg/dL Uric Acid (3.5-7.6) mg/dL Calcium (8.4-10.2) mg/dL Phosphorus (2.5-4.5) mg/dL Total Bilirubin (0.1-1.2) mg/dL ALT (7-56) units/L C-Reactive Protein (0.00-1.30) mg/dL Total Protein (6.3-8.2) g/dL Albumin (3.9-5) g/dL 09/26/20 09/26/20 09/26/20 Range/Units 08:59 09:15 10:32 WBC (4.5-11.0) K/mm3 Hgb (10.1-14.3) gm/dl MCH (28-32) pg MCHC 35 H (30-34) % Lymph % (Auto) 8.4 L (13.4-35.0) % Lymph # (Auto) 0.7 L (1.2-5.4) K/mm3 Seg Neutrophils % 89.6 H (40.0-70.0) % Seg Neuts % (Manual) (40.0-70.0) % Lymphocytes % (Manual) (13.4-35.0) % Monocytes % (Manual) (0.0-7.3) % Seg Neutrophils # 8.0 H (1.8-7.7) K/mm3 Seg Neutrophils # Man (1.8-7.7) K/mm3 Monocytes # (Manual) (0.0-0.8) K/mm3 APTT (24.2-36.6) Sec. D-Dimer (0-234) ng/mlDDU Sodium (137-145) mmol/L Chloride 113.4 H (98-107) mmol/L Carbon Dioxide (22-30) mmol/L BUN 57 H (7-17) mg/dL Creatinine (0.6-1.2) mg/dL Glucose (65-100) mg/dL POC Glucose 498 H (70-105) mg/dL Uric Acid 8.0 H (3.5-7.6) mg/dL Calcium (8.4-10.2) mg/dL Phosphorus 4.70 H (2.5-4.5) mg/dL Total Bilirubin (0.1-1.2) mg/dL ALT (7-56) units/L C-Reactive Protein (0.00-1.30) mg/dL Total Protein (6.3-8.2) g/dL Albumin (3.9-5) g/dL 09/26/20 09/26/20 09/26/20 Range/Units 11:06 12:04 13:50 WBC (4.5-11.0) K/mm3 Hgb (10.1-14.3) gm/dl MCH (28-32) pg MCHC (30-34) % Lymph % (Auto) (13.4-35.0) % Lymph # (Auto) (1.2-5.4) K/mm3 Seg Neutrophils % (40.0-70.0) % Seg Neuts % (Manual) (40.0-70.0) % Lymphocytes % (Manual) (13.4-35.0) % Monocytes % (Manual) (0.0-7.3) % Seg Neutrophils # (1.8-7.7) K/mm3 Seg Neutrophils # Man (1.8-7.7) K/mm3 Monocytes # (Manual) (0.0-0.8) K/mm3 APTT (24.2-36.6) Sec. D-Dimer (0-234) ng/mlDDU Sodium (137-145) mmol/L Chloride (98-107) mmol/L Carbon Dioxide (22-30) mmol/L BUN (7-17) mg/dL Creatinine (0.6-1.2) mg/dL Glucose (65-100) mg/dL POC Glucose 402 H 379 H 333 H (70-105) mg/dL Uric Acid (3.5-7.6) mg/dL Calcium (8.4-10.2) mg/dL Phosphorus (2.5-4.5) mg/dL Total Bilirubin (0.1-1.2) mg/dL ALT (7-56) units/L C-Reactive Protein (0.00-1.30) mg/dL Total Protein (6.3-8.2) g/dL Albumin (3.9-5) g/dL HEART Score - HEART Score Troponin: Troponin T < 0.010 ng/mL (0.00-0.029) 09/25/20 14:07
[2020-09-26 15:50] LABS: Blood Urea Nitrogen 11 mg/dL (7-17); Calcium 8.4 mg/dL (8.4-10.2); Hemolysis Index 87
[2020-09-26 15:53] LABS: BUN/Creatinine Ratio 28
[2020-09-26 16:05] LABS: INR 0.92 (0.87-1.13)
[2020-09-26 16:06] LABS: Partial Thromboplastin Time 36.7 Sec. (24.2-36.6)
[2020-09-26 16:08] LABS: Hematocrit 29.2 % (30.3-42.9); Hemoglobin 10.1 gm/dl (10.1-14.3); Mean Corpuscular HGB Conc 35 % (30-34); Mean Corpuscular Volume 89 fl (79-97); Platelet Count 152 K/mm3 (140-440); Red Blood Count 3.29 M/mm3 (3.65-5.03); Red Cell Distribution Width 13.3 % (13.2-15.2)
[2020-09-26] MEDS: AZITHROMYCIN/NS 500 MG/250 ML 500 MG/250 ML BAG IV SCH (17:59)
--- NOTE | 2020-09-26 21:35 | Consultation ---
History of Present Illness - Reason for Consult Consult date: 09/26/20 hyponatremia - History of Present Illness The patient is a 54 YO female with DM, HTN, HLD, Fibromyalgia, GERD, Migraine and Coronavirus Infection (diagnosed 09/08/20) who presented to [facility] ED with c/o fever, shortness of breath, nausea, multiple episodes of vomiting, decreased PO intake, generalized weakness, malaise, body aches, over the past 3 weeks since she was diagnosed with Covid. For the pas few she also experienced unsteady gait. Patient denies any abd pain, cp, dizziness, syncope, leg swelling or rash. Vitals significant for tachycardia. Labs significant for Sodium 112, Glu 528 and bicarb 18. CTA chest negative for PE and any acute process. Nephrology was consulted for evaluation and treatment of Hyponatremia. Past History Past Medical History: diabetes, hypertension, hyperlipidemia, other (See HPI) Past Surgical History: , Other (Lung surgery) Social history: single. denies: smoking, alcohol abuse Family history: diabetes, hypertension Medications and Allergies Allergies Allergy/AdvReac Type Severity Reaction Status Date / Time clonidine Allergy Hives Verified 09/25/20 09:31 Home Medications Medication Instructions Recorded Confirmed Last Taken Type DULoxetine [Cymbalta] 60 mg PO QDAY 03/18/20 09/26/20 09/08/20 History Metoprolol [Lopressor TAB] 1 tab PO DAILY 03/18/20 09/26/20 09/08/20 History Ondansetron HCl [Zofran] 8 mg PO DAILY 03/18/20 09/26/20 09/09/20 17:40 History Pantoprazole [Protonix TAB] 40 mg PO QDAY 03/18/20 09/26/20 09/09/20 17:40 History amLODIPine 5 mg PO DAILY 03/18/20 09/26/20 09/08/20 History busPIRone [Buspar] 5 mg PO DAILY 03/18/20 09/26/20 09/08/20 History Insulin NPH Hum/Reg Insulin Hm 12 unit SQ BID 30 Days #5 vial 03/23/20 09/26/20 09/09/20 17:41 Rx [Novolin 70-30 100 Unit/ml Vial] Losartan [Cozaar] 100 mg PO QDAY 30 Days #30 tablet 03/23/20 09/26/20 09/08/20 Rx Flash Glucose Scanning [place] 1 each MC BID #60 each 03/24/20 09/26/20 09/09/20 17:41 Rx [Freestyle Ibrahima 14 Day [place]] Flash Glucose Sensor [Freestyle 1 each MC BID #60 each 03/24/20 09/26/20 09/09/20 17:41 Rx Ibrahima 14 Day Sensor] oxyCODONE /ACETAMINOPHEN [Percocet 1 tab PO Q8H PRN 2 Days #8 tablet 03/24/20 09/26/20 Unknown Rx 5/325 mg] Ascorbic Acid [Vitamin C] 1,000 mg PO BID #14 tablet 09/13/20 09/26/20 Unknown Rx Cholecalciferol (Vitamin D3) 5,000 unit PO DAILY #7 tablet 09/13/20 09/26/20 Unknown Rx [Vitamin D3] Zinc Sulfate 220 mg PO BID #14 capsule 09/13/20 09/26/20 Unknown Rx dexAMETHasone [Dexamethasone] 6 mg PO DAILY #5 tablet 09/13/20 09/26/20 Unknown Rx Active Meds: Active Medications Acetaminophen (Acetaminophen 325 Mg Tab) 650 mg PO Q4H PRN PRN Reason: Pain MILD(1-3)/Fever >100.5/[place]ACK[place] Last Admin: 09/26/20 13:26 Dose: 650 mg Documented by: Albuterol (Albuterol 2.5 Mg/3 Ml Nebu) 2.5 mg IH Q4HRT PRN PRN Reason: Shortness Of Breath Amlodipine Besylate (Amlodipine 10 Mg Tab) 10 mg PO DAILY [facility] Last Admin: 09/26/20 11:31 Dose: 10 mg Documented by: Apixaban (Apixaban 5 Mg Tab) 5 mg PO Q12HR [facility]; Protocol Ascorbic Acid (Ascorbic Acid 500 Mg Tab) 1,000 mg PO BID [facility] Last Admin: 09/26/20 11:32 Dose: Not Given Documented by: Buspirone HCl (Buspirone 5 Mg Tab) 5 mg PO DAILY [facility] Last Admin: 09/26/20 11:30 Dose: 5 mg Documented by: Cholecalciferol (Cholecalciferol (Vit D3) 5,000 Unit Tab) 5,000 unit PO DAILY [facility] Duloxetine HCl (Duloxetine 30 Mg Cap) 60 mg PO QDAY [facility] Last Admin: 09/26/20 11:32 Dose: 60 mg Documented by: Hydromorphone HCl (Hydromorphone 1 Mg/1 Ml Inj) 0.5 mg IV Q12H PRN PRN Reason: Pain , Severe (7-10) Azithromycin (Zithromax/Ns) 500 mg in 250 mls @ 250 mls/hr IV Q24H [facility] Stop: 09/29/20 18:59 Last Admin: 09/26/20 17:59 Dose: 250 mls/hr Documented by: Sodium Chloride (Nacl 0.9% 1000 Ml) 1,000 mls @ 125 mls/hr IV DIRECT [facility] Last Admin: 09/26/20 13:51 Dose: 125 mls/hr Documented by: Insulin Glargine (Insulin Glargine 100 Units/Ml) 10 units SUB-Q QAMDIAB [facility] Last Admin: 09/26/20 09:04 Dose: 10 units Documented by: Insulin Human Regular (Insulin Regular, Human 100 Units/1 Ml) 0 units SUB-Q Q4H [facility]; Protocol Last Admin: 09/26/20 16:26 Dose: 6 units Documented by: Methylprednisolone Sodium Succinate (Methylprednisolone Sod Succinate 40 Mg/1 Ml Inj) 40 mg IV Q8HR [facility] Last Admin: 09/26/20 13:54 Dose: 40 mg Documented by: Ondansetron HCl (Ondansetron 4 Mg/2 Ml Inj) 4 mg IV Q8H PRN PRN Reason: Nausea And Vomiting Last Admin: 09/26/20 13:26 Dose: 4 mg Documented by: Oxycodone/Acetaminophen (Oxycodone /Acetaminophen 5-325mg Tab) 1 tab PO Q12H PRN PRN Reason: Pain, Moderate (4-6) Last Admin: 09/25/20 21:58 Dose: 1 tab Documented by: Pantoprazole Sodium (Pantoprazole 40 Mg Tab) 40 mg PO QDAC [facility] Last Admin: 09/26/20 11:32 Dose: 40 mg Documented by: Sodium Bicarbonate (Sodium Bicarbonate 650 Mg Tab) 1,300 mg PO TID [facility] Sodium Chloride (Sodium Chloride 0.9% 10 Ml Flush Syringe) 10 ml IV BID [facility] Last Admin: 09/26/20 10:20 Dose: 10 ml Documented by: Sodium Chloride (Sodium Chloride 0.9% 10 Ml Flush Syringe) 10 ml IV PRN PRN PRN Reason: LINE FLUSH Sodium Chloride (Sodium Chloride 1 Gm Tab) 1 gm PO TID [facility] Last Admin: 09/26/20 13:51 Dose: 1 gm Documented by: Zinc Sulfate (Zinc Sulfate 220 Mg Cap) 220 mg PO BID [facility] Last Admin: 09/26/20 10:19 Dose: 220 mg Documented by: Review of Systems Constitutional: weight loss, fever, anorexia, fatigue, no weight gain, no chills, no weakness Breasts: deferred Cardiovascular: shortness of breath, high blood pressure, no chest pain, no orthopnea, no edema, no syncope, no lightheadedness, no leg edema Respiratory: cough, shortness of breath, dyspnea on exertion, no hemoptysis Gastrointestinal: nausea, vomiting, no abdominal pain, no diarrhea, no melena Integumentary: no rash Neurological: no convulsions, no change in speech, no change in mentation, no confusion, no memory loss Exam - Vital Signs Vital signs: Vital Signs Temp Pulse Resp BP Pulse Ox 97.5 F L 138 H 18 123/82 95 09/25/20 09:35 09/25/20 09:35 09/25/20 09:35 09/25/20 09:35 09/25/20 09:35 Results - Lab Results 09/26/20 15:07 09/26/20 15:00 Most recent lab results Calcium 8.4 mg/dL (8.4-10.2) D 09/26/20 15:00 Phosphorus 4.70 mg/dL (2.5-4.5) H 09/26/20 10:32 Magnesium 1.90 mg/dL (1.7-2.3) 09/25/20 10:31 Urine Sodium 48 mmol/L 09/26/20 11:47 Assessment and Plan 1. Hyponatremia: Most likely pseudohyponatremia in the setting of very high blood glucose level + volume depletion. Sr Osm 322. On SSRI. IV fluids. On Salt tablets. Monitor Sodium level. 2. FEN: Metabolic acidosis, Sod bicarbonate, monitor. Monitor lytes and volume status. 3. SIRS, POA: On abx. Monitor. 4. Uncontrolled DM: SSI, monitor. 5. Recent Covid infection: Covid test negative. Subjective: Patient was examined at the bedside. Examination: General appearance: well-developed, appears stated age, not in distress HEENT: ATNC Neck: Trachea midline Respiratory: ctab Cardiology: S1S2, no murmur Gastrointestinal: soft, obese, bowel sounds heard, not tender Integumentary: Neurologic: AO, able to move extremities Ext: no edema
[2020-09-26] MEDS ORDERED: APIXABAN 5 MG TAB PO SCH (22:00)
[2020-09-26] MEDS: HYDROmorphone 1 MG/1 ML INJ IV PRN (23:02)
[2020-09-27] MEDS: SODIUM CHLORIDE 1 GM TAB PO SCH (00:07)
[2020-09-27] MEDS: INSULIN REGULAR, HUMAN 100 UNITS/1 ML SUB-Q SCH ×9 (00:24→20:39)
[2020-09-27 01:14] LABS: Blood Urea Nitrogen 12 mg/dL (7-17); Calcium 8.3 mg/dL (8.4-10.2); Hemolysis Index 123
[2020-09-27 01:27] LABS: BUN/Creatinine Ratio 40
[2020-09-27 06:01] LABS: Blood Urea Nitrogen 12 mg/dL (7-17); Calcium 8.5 mg/dL (8.4-10.2); HDL Cholesterol 22 mg/dL (40-59); Hemolysis Index 68; LDL Cholesterol,Direct 70 mg/dL (50-130)
[2020-09-27 06:14] LABS: BUN/Creatinine Ratio 40
[2020-09-27] MEDS: methylPREDNISolone Sod Succinate 40 MG/1 ML INJ IV SCH (06:15)
[2020-09-27] MEDS: SODIUM CHLORIDE 0.9% 1000 ML 1,000 ML IV SCH ×2 (06:15→16:45)
[2020-09-27] MEDS: busPIRone 5 MG TAB PO SCH (09:04)
[2020-09-27] MEDS: SODIUM BICARBONATE 650 MG TAB PO SCH ×3 (09:04→19:40)
[2020-09-27] MEDS: AZITHROMYCIN 250 MG TAB PO SCH (09:04)
[2020-09-27] MEDS: amLODIPine 10 MG TAB PO SCH (09:04)
[2020-09-27] MEDS: ASCORBIC ACID 500 MG TAB PO SCH ×2 (09:04→21:02)
[2020-09-27] MEDS: DULoxetine 30 MG CAP PO SCH (09:05)
[2020-09-27] MEDS: PANTOPRAZOLE 40 MG TAB PO SCH (09:05)
[2020-09-27] MEDS: ONDANSETRON 4 MG/2 ML INJ IV PRN ×2 (09:15→16:45)
[2020-09-27] MEDS: oxyCODONE /ACETAMINOPHEN 5-325MG TAB PO PRN (09:15)
--- NOTE | 2020-09-27 10:02 | Progress Note ---
Assessment and Plan 1. Hyponatremia: Most likely pseudohyponatremia in the setting of very high blood glucose level + severe dyslipidemia. Sr Osm 322. Triglycerides 3283. Stop Salt tablets. Monitor Sodium level. 2. FEN: Metabolic acidosis, Sod bicarbonate, monitor. Monitor lytes and volume status. 3. SIRS, POA: On abx. Monitor. 4. Uncontrolled DM: SSI, monitor. 5. Hypertriglyceridemia: Very high triglyceride levels. Need better DM control. Add Fenofibrate. Resume Lipitor. 6. Recent Covid infection: Covid test negative. Subjective: Patient was examined at the bedside. Doing ok. Examination: General appearance: well-developed, appears stated age, not in distress HEENT: ATNC Neck: Trachea midline Respiratory: ctab Cardiology: S1S2, no murmur Gastrointestinal: soft, obese, bowel sounds heard, not tender Integumentary: Neurologic: AO, able to move extremities Ext: no edema Subjective Date of service: 09/27/20 Objective - Vital Signs Vital signs: Vital Signs - 12hr 09/26/20 09/26/20 09/26/20 22:11 22:21 22:42 Temperature 98.4 F Pulse Rate 120 H 121 H Respiratory 26 H 27 H 24 Rate Blood Pressure 137/78 137/78 141/81 O2 Sat by Pulse 98 97 94 Oximetry 09/26/20 09/27/20 09/27/20 23:02 04:09 08:23 Temperature 97.9 F 98.4 F Pulse Rate 110 H 97 H Respiratory 20 20 20 Rate Blood Pressure 144/86 140/86 O2 Sat by Pulse 92 93 Oximetry 09/27/20 09:15 Temperature Pulse Rate Respiratory 16 Rate Blood Pressure O2 Sat by Pulse Oximetry - Lab 09/26/20 15:07 09/27/20 04:40 Most recent lab results Calcium 8.5 mg/dL (8.4-10.2) 09/27/20 04:40 Phosphorus 4.70 mg/dL (2.5-4.5) H 09/26/20 10:32 Magnesium 1.90 mg/dL (1.7-2.3) 09/25/20 10:31 Urine Sodium 48 mmol/L 09/26/20 11:47 Medications & Allergies - Medications Allergies/Adverse Reactions: Allergies clonidine Allergy (Verified 09/25/20 09:31) Hives Home Medications: Home Medications Medication Instructions Recorded Confirmed Last Taken Type DULoxetine [Cymbalta] 60 mg PO QDAY 03/18/20 09/26/20 09/08/20 History Metoprolol [Lopressor TAB] 1 tab PO DAILY 03/18/20 09/26/20 09/08/20 History Ondansetron HCl [Zofran] 8 mg PO DAILY 03/18/20 09/26/20 09/09/20 17:40 History Pantoprazole [Protonix TAB] 40 mg PO QDAY 03/18/20 09/26/20 09/09/20 17:40 History amLODIPine 5 mg PO DAILY 03/18/20 09/26/20 09/08/20 History busPIRone [Buspar] 5 mg PO DAILY 03/18/20 09/26/20 09/08/20 History Insulin NPH Hum/Reg Insulin Hm 12 unit SQ BID 30 Days #5 vial 03/23/20 09/26/20 09/09/20 17:41 Rx [Novolin 70-30 100 Unit/ml Vial] Losartan [Cozaar] 100 mg PO QDAY 30 Days #30 tablet 03/23/20 09/26/20 09/08/20 Rx Flash Glucose Scanning [place] 1 each BID #60 each 03/24/20 09/26/20 09/09/20 17:41 Rx [Freestyle Ibrahima 14 Day [place]] Flash Glucose Sensor [Freestyle 1 each MC BID #60 each 03/24/20 09/26/20 09/09/20 17:41 Rx Ibrahima 14 Day Sensor] oxyCODONE /ACETAMINOPHEN [Percocet 1 tab PO Q8H PRN 2 Days #8 tablet 03/24/20 09/26/20 Unknown Rx 5/325 mg] Ascorbic Acid [Vitamin C] 1,000 mg PO BID #14 tablet 09/13/20 09/26/20 Unknown Rx Cholecalciferol (Vitamin D3) 5,000 unit PO DAILY #7 tablet 09/13/20 09/26/20 Unknown Rx [Vitamin D3] Zinc Sulfate 220 mg PO BID #14 capsule 09/13/20 09/26/20 Unknown Rx dexAMETHasone [Dexamethasone] 6 mg PO DAILY #5 tablet 09/13/20 09/26/20 Unknown Rx Active Medications: Generic Name Dose Route Start Last Admin Trade Name Freq PRN Reason Stop Dose Admin Acetaminophen 650 mg 09/25/20 17:30 09/26/20 13:26 Acetaminophen 325 Mg Tab PO 650 mg Q4H PRN Administration Pain MILD(1-3)/Fever >100.5/[place] Albuterol 2.5 mg 09/25/20 17:30 Albuterol 2.5 Mg/3 Ml Nebu IH Q4HRT PRN Shortness Of Breath Amlodipine Besylate 10 mg 09/26/20 12:00 09/27/20 09:04 Amlodipine 10 Mg Tab PO 10 mg DAILY GUDELIA Administration Ascorbic Acid 1,000 mg 09/26/20 11:00 09/27/20 09:04 Ascorbic Acid 500 Mg Tab PO 1,000 mg BID GUDELIA Administration Azithromycin 500 mg 09/27/20 10:00 09/27/20 09:04 Azithromycin 250 Mg Tab PO 09/29/20 10:01 500 mg QDAY GUDELIA Administration Buspirone HCl 5 mg 09/26/20 11:00 09/27/20 09:04 Buspirone 5 Mg Tab PO 5 mg DAILY GUDELIA Administration Cholecalciferol 5,000 unit 09/27/20 10:00 Cholecalciferol (Vit D3) 5,000 Unit Tab PO DAILY GUDELIA Duloxetine HCl 60 mg 09/26/20 11:00 09/27/20 09:05 Duloxetine 30 Mg Cap PO 60 mg QDAY GUDELIA Administration Enoxaparin Sodium 40 mg 09/27/20 22:00 Enoxaparin 40 Mg/0.4 Ml Inj SUB-Q QDAY@[facility]00 [facility] Protocol Hydromorphone HCl 0.5 mg 09/25/20 17:30 09/26/20 23:02 Hydromorphone 1 Mg/1 Ml Inj IV 0.5 mg Q12H PRN Administration Pain , Severe (7-10) Sodium Chloride 1,000 mls @ 125 mls/hr 09/26/20 08:00 09/27/20 06:15 Nacl 0.9% 1000 Ml IV 125 mls/hr DIRECT GUDELIA Administration Insulin Glargine 15 units 09/27/20 09:52 Insulin Glargine 100 Units/Ml SUB-Q QAMDIAB GUDELIA Insulin Human Regular 0 units 09/26/20 08:00 09/27/20 08:45 Insulin Regular, Human 100 Units/1 Ml SUB-Q 4 units Q4H GUDELIA Administration Protocol Ondansetron HCl 4 mg 09/25/20 17:30 09/27/20 09:15 Ondansetron 4 Mg/2 Ml Inj IV 4 mg Q8H PRN Administration Nausea And Vomiting Oxycodone/Acetaminophen 1 tab 09/25/20 17:30 09/27/20 09:15 Oxycodone /Acetaminophen 5-325mg Tab PO 1 tab Q12H PRN Administration Pain, Moderate (4-6) Pantoprazole Sodium 40 mg 09/26/20 12:00 09/27/20 09:05 Pantoprazole 40 Mg Tab PO 40 mg QDAC GUDELIA Administration Sodium Bicarbonate 1,300 mg 09/26/20 17:19 09/27/20 09:04 Sodium Bicarbonate 650 Mg Tab PO 1,300 mg TID GUDELIA Administration Sodium Chloride 10 ml 09/25/20 22:00 09/27/20 09:05 Sodium Chloride 0.9% 10 Ml Flush Syringe IV 10 ml BID GUDELIA Administration Sodium Chloride 10 ml 09/25/20 17:30 Sodium Chloride 0.9% 10 Ml Flush Syringe IV PRN PRN LINE FLUSH Sodium Chloride 1 gm 09/26/20 11:00 09/27/20 00:07 Sodium Chloride 1 Gm Tab PO Not Given TID GUDELIA Zinc Sulfate 220 mg 09/25/20 22:00 09/26/20 22:11 Zinc Sulfate 220 Mg Cap PO 220 mg BID GUDELIA Administration
[2020-09-27] MEDS ORDERED: INSULIN GLARGINE 100 UNITS/ML SUB-Q SCH (11:00)
[2020-09-27] MEDS: CHOLECALCIFEROL (VIT D3) 5,000 UNIT TAB PO SCH (12:10)
[2020-09-27] MEDS: ZINC SULFATE 220 MG CAP PO SCH (12:10)
[2020-09-27] MEDS: ACETAMINOPHEN 325 MG TAB PO PRN (16:45)
--- NOTE | 2020-09-27 17:27 | Progress Note ---
Assessment and Plan The patient is a 54 YO female with DM, HTN, HLD, Fibromyalgia, GERD, Migraine and Coronavirus Infection (diagnosed 09/08/20) who presented to [facility] ED with c/o fever, shortness of breath, nausea, multiple episodes of vomiting, decreased PO intake, generalized weakness, malaise, body aches, over the past 3 weeks since she was diagnosed with Covid. For the pas few she also experienced unsteady gait. In the ER Labs significant for Sodium 112, Glu 528 and bicarb 18. CTA chest negative for PE and any acute process. Nephrology was consulted for evaluation and treatment of Hyponatremia. Assessment and plan: -- Hyponatremia likely due to severe hyperglycemia IV fluid resuscitation therapy, correct serum glucose, repeat BMP in a.m. -- Uncontrolled diabetes mellitus with hyperosmolality adjust Insulin for better glycemic control, consistent carbohydrate diet, Accu- Chek, hypoglycemia protocol -- Systemic inflammatory response syndrome, likely due to uncontrolled DM -- h/o COVID-19 diagnosed 09/08/20 coronavirus PCR ordered and negative --Elevated D-dimer, CTA chest is negative for PE --HTN, cont antihypertensives and adjust medications as needed --HLD, cont statin and tricor --fibromyalgia, cont supportive care ----Nausea with history of gastroparesis Initiate on Reglan --GERD, cont PPI -- DVT prophylaxis SCD to bilateral lower extremities while in bed Daily clinical course: 09/26/20; pending COVID-19 test, initiated on SSI every 4 hours along with Lantus, continue to follow serum blood glucose and BMP every 4 hours. Nephrology consulted, recommendation. 09/27/20: Neg covid test. BG remains at 300s -further adjust insulin dose, patient complains of nausea -we will add Reglan. Follow clinically. Sodium level has significantly improved. Subjective Date of service: 09/27/20 Interval history: Patient seen and examined. Medical records and medication list reviewed. No acute event overnight noted by the RN. Patient complains of generalized weakness and severe nausea. not able to tolerate diet Discussed plan of care at bedside with patient. Objective - Exam Narrative Exam: General appearance: Present: mild distress - EENT Eyes: Present: PERRL ENT: hearing intact, clear oral mucosa - Neck Neck: Present: supple, normal ROM - Respiratory Respiratory effort: normal Respiratory: bilateral: CTA - Cardiovascular Heart Sounds: Present: S1 & S2. Absent: rub, click - Extremities Extremities: pulses symmetrical, No edema Peripheral Pulses: within normal limits - Abdominal General gastrointestinal: Present: soft, non-tender, non-distended, normal bowel sounds Female genitourinary: Present: normal - Integumentary Integumentary: Present: clear, warm, dry - Musculoskeletal Musculoskeletal: gait normal, strength equal bilaterally - Psychiatric Psychiatric: appropriate mood/affect, intact judgment & insight - Neurologic Neurologic: CNII-XII intact, moves all extremities - Constitutional Vitals: Vital Signs - 12hr 09/27/20 09/27/20 09/27/20 07:00 08:23 09:15 Temperature 98.4 F Pulse Rate 97 H Pulse Rate [ 89 Apical] Pulse Rate [ 89 From Monitor] Respiratory 18 20 16 Rate Blood Pressure 140/86 O2 Sat by Pulse 98 93 Oximetry 09/27/20 09/27/20 09/27/20 09:35 10:15 11:45 Temperature 98.3 F Pulse Rate 111 H Pulse Rate [ Apical] Pulse Rate [ From Monitor] Respiratory 16 20 Rate Blood Pressure 144/86 O2 Sat by Pulse 93 92 Oximetry 09/27/20 09/27/20 16:05 16:45 Temperature 97.4 F L Pulse Rate 111 H Pulse Rate [ Apical] Pulse Rate [ From Monitor] Respiratory 18 17 Rate Blood Pressure 143/83 O2 Sat by Pulse 92 Oximetry - Labs CBC & Chem 7: 09/28/20 04:18 09/28/20 04:18 Labs: Abnormal lab results 09/26/20 09/27/20 09/27/20 Range/Units 21:30 00:14 00:42 Sodium 130 L D (137-145) mmol/L Chloride 95.2 L (98-107) mmol/L Carbon Dioxide 16 L (22-30) mmol/L Creatinine 0.3 L (0.6-1.2) mg/dL Glucose 294 H (65-100) mg/dL POC Glucose 314 H 312 H (70-105) mg/dL Calcium 8.3 L (8.4-10.2) mg/dL Triglycerides (2-149) mg/dL Cholesterol (50-199) mg/dL HDL Cholesterol (40-59) mg/dL 09/27/20 09/27/20 09/27/20 Range/Units 04:40 06:23 08:24 Sodium 134 L (137-145) mmol/L Chloride (98-107) mmol/L Carbon Dioxide 20 L (22-30) mmol/L Creatinine 0.3 L (0.6-1.2) mg/dL Glucose 223 H (65-100) mg/dL POC Glucose 246 H 253 H (70-105) mg/dL Calcium (8.4-10.2) mg/dL Triglycerides 3283 H (2-149) mg/dL Cholesterol 627 H (50-199) mg/dL HDL Cholesterol 22 L (40-59) mg/dL 09/27/20 09/27/20 Range/Units 11:47 16:05 Sodium (137-145) mmol/L Chloride (98-107) mmol/L Carbon Dioxide (22-30) mmol/L Creatinine (0.6-1.2) mg/dL Glucose (65-100) mg/dL POC Glucose 320 H 299 H (70-105) mg/dL Calcium (8.4-10.2) mg/dL Triglycerides (2-149) mg/dL Cholesterol (50-199) mg/dL HDL Cholesterol (40-59) mg/dL HEART Score - HEART Score Troponin: Troponin T < 0.010 ng/mL (0.00-0.029) 09/25/20 14:07
[2020-09-27] MEDS: HYDROmorphone 1 MG/1 ML INJ IV PRN (19:41)
[2020-09-27] MEDS: ENOXAPARIN 40 MG/0.4 ML INJ SUB-Q SCH (21:01)
[2020-09-27] MEDS: METOPROLOL TARTRATE 25 MG TAB PO SCH (23:00)
[2020-09-28] MEDS: ZINC SULFATE 220 MG CAP PO SCH ×3 (00:37→21:43)
[2020-09-28] MEDS: INSULIN REGULAR, HUMAN 100 UNITS/1 ML SUB-Q SCH ×9 (00:38→21:44)
[2020-09-28] MEDS: oxyCODONE /ACETAMINOPHEN 5-325MG TAB PO PRN (05:00)
[2020-09-28 06:45] LABS: Hematocrit 33.7 % (30.3-42.9); Mean Corpuscular HGB Conc 35 % (30-34); Mean Corpuscular Volume 88 fl (79-97); Platelet Count 183 K/mm3 (140-440); Red Blood Count 3.85 M/mm3 (3.65-5.03); Red Cell Distribution Width 13.9 % (13.2-15.2)
[2020-09-28 07:02] LABS: Blood Urea Nitrogen 10 mg/dL (7-17); Hemolysis Index 24
[2020-09-28 07:04] LABS: BUN/Creatinine Ratio 25
[2020-09-28] MEDS: SODIUM BICARBONATE 650 MG TAB PO SCH ×2 (08:00→15:05)
[2020-09-28] MEDS: INSULIN GLARGINE 100 UNITS/ML SUB-Q SCH ×2 (08:04→10:43)
[2020-09-28] MEDS: SODIUM CHLORIDE 1 GM TAB PO SCH (08:05)
[2020-09-28] MEDS ORDERED: POTASSIUM CHLORIDE ER 20 MEQ TAB PO ONE ×2 (09:00→22:00)
[2020-09-28] MEDS: POTASSIUM CHLORIDE 10 MEQ 10 MEQ/100 ML BAG IV SCH ×4 (10:42→14:00)
[2020-09-28] MEDS: ASCORBIC ACID 500 MG TAB PO SCH ×2 (10:43→21:43)
[2020-09-28] MEDS: AZITHROMYCIN 250 MG TAB PO SCH (10:43)
[2020-09-28] MEDS: METOPROLOL TARTRATE 25 MG TAB PO SCH ×2 (10:43→21:43)
[2020-09-28] MEDS: busPIRone 5 MG TAB PO SCH (10:44)
[2020-09-28] MEDS: CHOLECALCIFEROL (VIT D3) 5,000 UNIT TAB PO SCH (10:44)
[2020-09-28] MEDS: amLODIPine 10 MG TAB PO SCH (10:44)
[2020-09-28] MEDS: DULoxetine 30 MG CAP PO SCH (10:44)
[2020-09-28] MEDS: METOCLOPRAMIDE 10 MG TAB PO SCH ×2 (10:44→11:36)
[2020-09-28] MEDS: SODIUM CHLORIDE 0.9% 1000 ML 1,000 ML IV SCH (10:46)
[2020-09-28] MEDS: PANTOPRAZOLE 40 MG TAB PO SCH (10:55)
[2020-09-28] MEDS: FENOFIBRATE 145 MG TAB PO SCH (11:36)
--- NOTE | 2020-09-28 12:56 | Progress Note ---
Assessment and Plan 1. Hyponatremia: Most likely pseudohyponatremia in the setting of very high blood glucose level + severe dyslipidemia. Sr Osm 322. Triglycerides 3283. Monitor Sodium level. 2. FEN: Metabolic acidosis, improved, monitor. Monitor lytes and volume status. 3. SIRS, POA: On abx. Monitor. 4. Uncontrolled DM: SSI, monitor. 5. Hypertriglyceridemia: Very high triglyceride levels. Need better DM control. On Fenofibrate and Lipitor. 6. Recent Covid infection: Covid test negative. Subjective: Patient was examined at the bedside. Few episodes of loose stools today. Examination: General appearance: well-developed, appears stated age, not in distress HEENT: ATNC Neck: Trachea midline Respiratory: ctab Cardiology: S1S2, no murmur Gastrointestinal: soft, obese, bowel sounds heard, not tender Integumentary: Neurologic: AO, able to move extremities Ext: no edema Subjective Date of service: 09/28/20 Objective - Vital Signs Vital signs: Vital Signs - 12hr 09/28/20 09/28/20 09/28/20 03:31 04:00 04:56 Temperature 98.0 F Pulse Rate 102 H 97 H 95 H Respiratory 18 17 Rate Blood Pressure 181/92 Blood Pressure 154/88 [Right] O2 Sat by Pulse 94 94 Oximetry 09/28/20 09/28/20 09/28/20 05:00 08:00 12:00 Temperature 98.1 F Pulse Rate 94 H Respiratory 17 18 Rate Blood Pressure Blood Pressure 153/79 [Right] O2 Sat by Pulse 98 98 Oximetry - Lab 09/28/20 04:18 09/28/20 04:18 Most recent lab results Calcium 8.0 mg/dL (8.4-10.2) L 09/28/20 04:18 Phosphorus 4.70 mg/dL (2.5-4.5) H 09/26/20 10:32 Magnesium 1.90 mg/dL (1.7-2.3) 09/25/20 10:31 Urine Sodium 48 mmol/L 09/26/20 11:47 Medications & Allergies - Medications Allergies/Adverse Reactions: Allergies clonidine Allergy (Verified 09/25/20 09:31) Hives Home Medications: Home Medications Medication Instructions Recorded Confirmed Last Taken Type DULoxetine [Cymbalta] 60 mg PO QDAY 0209/26/20 09/08/20 History Metoprolol [Lopressor TAB] 1 tab PO DAILY 03/18/20 09/26/20 09/08/20 History Ondansetron HCl [Zofran] 8 mg PO DAILY 03/18/20 09/26/20 09/09/20 17:40 History Pantoprazole [Protonix TAB] 40 mg PO QDAY 03/18/20 09/26/20 09/09/20 17:40 History amLODIPine 5 mg PO DAILY 03/18/20 09/26/20 09/08/20 History busPIRone [Buspar] 5 mg PO DAILY 03/18/20 09/26/20 09/08/20 History Insulin NPH Hum/Reg Insulin Hm 12 unit SQ BID 30 Days #5 vial 03/23/20 09/26/20 09/09/20 17:41 Rx [Novolin 70-30 100 Unit/ml Vial] Losartan [Cozaar] 100 mg PO QDAY 30 Days #30 tablet 03/23/20 09/26/20 09/08/20 Rx Flash Glucose Scanning [place] 1 each MC BID #60 each 03/24/20 09/26/20 09/09/20 17:41 Rx [Freestyle Ibrahima 14 Day [place]] Flash Glucose Sensor [Freestyle 1 each MC BID #60 each 03/24/20 09/26/20 09/09/20 17:41 Rx Ibrahima 14 Day Sensor] oxyCODONE /ACETAMINOPHEN [Percocet 1 tab PO Q8H PRN 2 Days #8 tablet 03/24/20 09/26/20 Unknown Rx 5/325 mg] Ascorbic Acid [Vitamin C] 1,000 mg PO BID #14 tablet 09/13/20 09/26/20 Unknown Rx Cholecalciferol (Vitamin D3) 5,000 unit PO DAILY #7 tablet 09/13/20 09/26/20 Unknown Rx [Vitamin D3] Zinc Sulfate 220 mg PO BID #14 capsule 09/13/20 09/26/20 Unknown Rx dexAMETHasone [Dexamethasone] 6 mg PO DAILY #5 tablet 09/13/20 09/26/20 Unknown Rx Active Medications: Generic Name Dose Route Start Last Admin Trade Name Freq PRN Reason Stop Dose Admin Acetaminophen 650 mg 09/25/20 17:30 09/27/20 16:45 Acetaminophen 325 Mg Tab PO 650 mg Q4H PRN Administration Pain MILD(1-3)/Fever >100.5/[place] Albuterol 2.5 mg 09/25/20 17:30 Albuterol 2.5 Mg/3 Ml Nebu IH Q4HRT PRN Shortness Of Breath Amlodipine Besylate 10 mg 09/26/20 12:00 09/28/20 10:44 Amlodipine 10 Mg Tab PO 10 mg DAILY GUDELIA Administration Ascorbic Acid 1,000 mg 09/26/20 11:00 09/28/20 10:43 Ascorbic Acid 500 Mg Tab PO 1,000 mg BID GUDELIA Administration Atorvastatin Calcium 20 mg 09/27/20 22:00 09/28/20 00:37 Atorvastatin 20 Mg Tab PO 20 mg QHS GUDELIA Administration Azithromycin 500 mg 09/27/20 10:00 09/28/20 10:43 Azithromycin 250 Mg Tab PO 09/29/20 10:01 500 mg QDAY GUDEILA Administration Buspirone HCl 5 mg 09/26/20 11:00 09/28/20 10:44 Buspirone 5 Mg Tab PO 5 mg DAILY GUDELIA Administration Cholecalciferol 5,000 unit 09/27/20 10:00 09/28/20 10:44 Cholecalciferol (Vit D3) 5,000 Unit Tab PO 5,000 unit DAILY GUDELIA Administration Duloxetine HCl 60 mg 09/26/20 11:00 09/28/20 10:44 Duloxetine 30 Mg Cap PO 60 mg QDAY GUDELIA Administration Enoxaparin Sodium 40 mg 09/27/20 22:00 09/27/20 21:01 Enoxaparin 40 Mg/0.4 Ml Inj SUB-Q 40 mg QDAY@2200 GUDELIA Administration Protocol Fenofibrate 145 mg 09/28/20 10:00 09/28/20 11:36 Fenofibrate 145 Mg Tab PO 145 mg QDAY GUDELIA Administration Hydromorphone HCl 0.5 mg 09/25/20 17:30 09/27/20 19:41 Hydromorphone 1 Mg/1 Ml Inj IV 0.5 mg Q12H PRN Administration Pain , Severe (7-10) Sodium Chloride 1,000 mls @ 125 mls/hr 09/26/20 08:00 09/28/20 10:46 Nacl 0.9% 1000 Ml IV 125 mls/hr DIRECT GUDELIA Administration Potassium Chloride 10 meq in 100 mls @ 100 mls/hr 09/28/20 09:00 09/28/20 10:42 Kcl 10meq/100ml IV 09/28/20 12:59 100 mls/hr Q1H GUDELIA Administration Insulin Glargine 20 units 09/28/20 08:00 09/28/20 10:43 Insulin Glargine 100 Units/Ml SUB-Q 20 units QAMDIAB GUDELIA Administration Insulin Human Regular 0 units 09/28/20 13:00 Insulin Regular, Human 100 Units/1 Ml SUB-Q QACHS [facility] Protocol Metoclopramide HCl 10 mg 09/28/20 07:30 09/28/20 11:36 [facility]oclopramide 10 Mg Tab [facility]oprol[facility] Tartrate 25 mg 09/27/20 22:00 09/28/20 10:43 Metoprolol Tartrate 25 Mg Tab PO 25 mg BID GUDELIA Administration Ondansetron HCl 4 mg 09/25/20 17:30 09/27/20 16:45 Ondansetron 4 Mg/2 Ml Inj IV 4 mg Q8H PRN Administration Nausea And Vomiting Oxycodone/Acetaminophen 1 tab 09/25/20 17:30 09/28/20 05:00 Oxycodone /Acetaminophen 5-325mg Tab PO 1 tab Q12H PRN Administration Pain, Moderate (4-6) Pantoprazole Sodium 40 mg 09/26/20 12:00 09/28/20 10:55 Pantoprazole 40 Mg Tab PO 40 mg QDAC GUDELIA Administration Sodium Bicarbonate 1,300 mg 09/26/20 17:19 09/28/20 08:00 Sodium Bicarbonate 650 Mg Tab PO 1,300 mg TID GUDELIA Administration Sodium Chloride 10 ml 09/25/20 22:00 09/28/20 11:36 Sodium Chloride 0.9% 10 Ml Flush Syringe IV 10 ml BID GUDELIA Administration Sodium Chloride 10 ml 09/25/20 17:30 Sodium Chloride 0.9% 10 Ml Flush Syringe IV PRN PRN LINE FLUSH Zinc Sulfate 220 mg 09/25/20 22:00 09/28/20 11:36 Zinc Sulfate 220 Mg Cap PO 220 mg BID GUDELIA Administration
[2020-09-28] MEDS ORDERED: LOPERAMIDE 2 MG CAP PO PRN (15:09)
--- NOTE | 2020-09-28 15:14 | Progress Note ---
Assessment and Plan The patient is a 54 YO female with DM, HTN, HLD, Fibromyalgia, GERD, Migraine and Coronavirus Infection (diagnosed 09/08/20) who presented to [facility] ED with c/o fever, shortness of breath, nausea, multiple episodes of vomiting, decreased PO intake, generalized weakness, malaise, body aches, over the past 3 weeks since she was diagnosed with Covid. For the pas few she also experienced unsteady gait. In the ER Labs significant for Sodium 112, Glu 528 and bicarb 18. CTA chest negative for PE and any acute process. Nephrology was consulted for evaluation and treatment of Hyponatremia. Assessment and plan: -- Hyponatremia likely due to severe hyperglycemia and IV fluid resuscitation therapy, correct serum glucose, follow BMP --Severe hypokalemia, replete K -- Uncontrolled diabetes mellitus with hyperosmolality adjust Insulin for better glycemic control, consistent carbohydrate diet, Accu- Chek, hypoglycemia protocol -- Systemic inflammatory response syndrome, likely due to uncontrolled DM -- h/o COVID-19 diagnosed 09/08/20 coronavirus PCR ordered and negative --Elevated D-dimer, CTA chest is negative for PE --HTN, cont antihypertensives and adjust medications as needed --HLD, cont statin and tricor --fibromyalgia, cont supportive care ----Nausea with history of gastroparesis Initiate on Reglan --GERD, cont PPI -- DVT prophylaxis SCD to bilateral lower extremities while in bed Daily clinical course: 09/26/20; pending COVID-19 test, initiated on SSI every 4 hours along with Lantus, continue to follow serum blood glucose and BMP every 4 hours. Nephrology consulted, recommendation. 09/27/20: Neg covid test. BG remains at 300s -further adjust insulin dose, marci goodrich complains of nausea -we will add Reglan. Follow clinically. Sodium level has significantly improved. 09/28/20: cont replete K. follow BMP. cont to have nausea and diarrhea. change reglan to iv add loperamide to control diarrhea Subjective Date of service: 09/28/20 Interval history: Patient seen and examined. Medical records and medication list reviewed. No acute event overnight noted by the RN. Patient complains of generalized weakness and severe nausea. K level 2.8 today Discussed plan of care at bedside with patient. Objective - Exam Narrative Exam: General appearance: Present: mild distress - EENT Eyes: Present: PERRL ENT: hearing intact, clear oral mucosa - Neck Neck: Present: supple, normal ROM - Respiratory Respiratory effort: normal Respiratory: bilateral: CTA - Cardiovascular Heart Sounds: Present: S1 & S2. Absent: rub, click - Extremities Extremities: pulses symmetrical, No edema Peripheral Pulses: within normal limits - Abdominal General gastrointestinal: Present: soft, non-tender, non-distended, normal bowel sounds Female genitourinary: Present: normal - Integumentary Integumentary: Present: clear, warm, dry - Musculoskeletal Musculoskeletal: gait normal, strength equal bilaterally - Psychiatric Psychiatric: appropriate mood/affect, intact judgment & insight - Neurologic Neurologic: CNII-XII intact, moves all extremities - Constitutional Vitals: Vital Signs - 12hr 09/28/20 09/28/20 09/28/20 03:31 04:00 04:56 Temperature 98.0 F Pulse Rate 102 H 97 H 95 H Respiratory 18 17 Rate Blood Pressure 181/92 Blood Pressure 154/88 [Right] O2 Sat by Pulse 94 94 Oximetry 09/28/20 09/28/20 09/28/20 05:00 08:00 12:00 Temperature 98.1 F Pulse Rate 94 H Respiratory 17 18 Rate Blood Pressure Blood Pressure 153/79 [Right] O2 Sat by Pulse 98 98 Oximetry 09/28/20 12:40 Temperature 97.5 F L Pulse Rate 93 H Respiratory 18 Rate Blood Pressure 135/84 Blood Pressure [Right] O2 Sat by Pulse 99 Oximetry - Labs CBC & Chem 7: 09/28/20 04:18 09/29/20 05:25 Labs: Abnormal lab results 09/27/20 09/27/20 09/27/20 Range/Units 16:05 20:08 23:13 MCHC (30-34) % Sodium (137-145) mmol/L Potassium (3.6-5.0) mmol/L Chloride (98-107) mmol/L Creatinine (0.6-1.2) mg/dL Glucose (65-100) mg/dL POC Glucose 299 H 220 H 168 H (70-105) mg/dL Calcium (8.4-10.2) mg/dL 09/28/20 09/28/20 09/28/20 Range/Units 03:29 04:18 04:18 MCHC 35 H (30-34) % Sodium 133 L (137-145) mmol/L Potassium 2.8 L* D (3.6-5.0) mmol/L Chloride 95.6 L (98-107) mmol/L Creatinine 0.4 L (0.6-1.2) mg/dL Glucose 137 H (65-100) mg/dL POC Glucose 166 H (70-105) mg/dL Calcium 8.0 L (8.4-10.2) mg/dL 09/28/20 Range/Units 10:04 MCHC (30-34) % Sodium (137-145) mmol/L Potassium (3.6-5.0) mmol/L Chloride (98-107) mmol/L Creatinine (0.6-1.2) mg/dL Glucose (65-100) mg/dL POC Glucose 225 H (70-105) mg/dL Calcium (8.4-10.2) mg/dL HEART Score - HEART Score Troponin: Troponin T < 0.010 ng/mL (0.00-0.029) 09/25/20 14:07
[2020-09-28] MEDS: METOCLOPRAMIDE 10 MG/2 ML INJ IV SCH (17:41)
[2020-09-28] MEDS: ENOXAPARIN 40 MG/0.4 ML INJ SUB-Q SCH (21:44)
[2020-09-29] MEDS: HYDROmorphone 1 MG/1 ML INJ IV PRN (00:20)
[2020-09-29] MEDS: METOCLOPRAMIDE 10 MG/2 ML INJ IV SCH ×2 (00:26→10:24)
[2020-09-29 06:23] LABS: Blood Urea Nitrogen 8 mg/dL (7-17); Calcium 7.9 mg/dL (8.4-10.2); Hemolysis Index 274
[2020-09-29 06:39] LABS: BUN/Creatinine Ratio 20
[2020-09-29] MEDS ORDERED: POTASSIUM CHLORIDE ER 20 MEQ TAB PO ONE (08:26)
--- NOTE | 2020-09-29 08:26 | Progress Note ---
Assessment and Plan 1. Hyponatremia: Most likely pseudohyponatremia in the setting of very high blood glucose level + severe dyslipidemia. Sr Osm 322. Triglycerides 3283. Monitor Sodium level. 2. FEN: Metabolic acidosis, improved, monitor. Monitor lytes and volume status. 3. SIRS, POA: On abx. Monitor. 4. Uncontrolled DM: SSI, monitor. 5. Hypertriglyceridemia: Very high triglyceride levels. Need better DM control. On Fenofibrate and Lipitor. Advised patient to see her pcp in 1-2 weeks and also check LFTs, she voiced understanding. 6. Recent Covid infection: Covid test negative. Subjective: Patient was examined at the bedside. Doing better today. Examination: General appearance: well-developed, appears stated age, not in distress HEENT: ATNC Neck: Trachea midline Respiratory: ctab Cardiology: S1S2, no murmur Gastrointestinal: soft, obese, bowel sounds heard, not tender Integumentary: Neurologic: AO, able to move extremities Ext: no edema Subjective Date of service: 09/29/20 Objective - Vital Signs Vital signs: Vital Signs - 12hr 09/28/20 09/28/20 09/28/20 21:43 22:00 23:08 Temperature 99.0 F Pulse Rate 104 H 91 H Respiratory 17 14 Rate Blood Pressure 142/60 148/84 O2 Sat by Pulse 96 96 Oximetry 09/29/20 09/29/20 09/29/20 00:20 00:50 03:32 Temperature 97.6 F Pulse Rate 84 Respiratory 17 17 16 Rate Blood Pressure 151/87 O2 Sat by Pulse 96 Oximetry 09/29/20 09/29/20 03:41 04:00 Temperature Pulse Rate 78 82 Respiratory Rate Blood Pressure O2 Sat by Pulse Oximetry - Lab 09/28/20 04:18 09/29/20 05:25 Most recent lab results Calcium 7.9 mg/dL (8.4-10.2) L 09/29/20 05:25 Phosphorus 4.70 mg/dL (2.5-4.5) H 09/26/20 10:32 Magnesium 2.00 mg/dL (1.7-2.3) 09/28/20 04:18 Urine Sodium 48 mmol/L 09/26/20 11:47 Medications & Allergies - Medications Allergies/Adverse Reactions: Allergies clonidine Allergy (Verified 09/25/20 09:31) Hives Home Medications: Home Medications Medication Instructions Recorded Confirmed Last Taken Type DULoxetine [Cymbalta] 60 mg PO QDAY 03/18/20 09/26/20 09/08/20 History Pantoprazole [Protonix TAB] 40 mg PO QDAY 03/18/20 09/26/20 09/09/20 17:40 History busPIRone [Buspar] 5 mg PO DAILY 03/18/20 09/26/20 09/08/20 History Flash Glucose Scanning [place] 1 each MC BID #60 each 03/24/20 09/26/20 09/09/20 17:41 Rx [Freestyle Ibrahima 14 Day [place]] Ascorbic Acid [Vitamin C] 1,000 mg PO BID #14 tablet 09/13/20 09/26/20 Unknown Rx Cholecalciferol (Vitamin D3) 5,000 unit PO DAILY #7 tablet 09/13/20 09/26/20 Unknown Rx [Vitamin D3] AtorvaSTATin [Lipitor] 40 mg PO QHS #30 tablet 09/29/20 Unknown Rx Fenofibrate [Tricor] 145 mg PO QDAY #30 tablet 09/29/20 Unknown Rx Insulin Glargine [Lantus VIAL] 20 units SUB-Q QAMDIAB 30 Days 09/29/20 Unknown Rx Losartan [Cozaar] 100 mg PO QDAY 30 Days #30 tablet 09/29/20 Unknown Rx Metoclopramide [Reglan] 10 mg PO ACHS #120 tablet 09/29/20 Unknown Rx Metoprolol [Lopressor TAB] 25 mg PO BID #60 tablet 09/29/20 Unknown Rx amLODIPine 10 mg PO DAILY #30 tablet 09/29/20 Unknown Rx Active Medications: Generic Name Dose Route Start Last Admin Trade Name Freq PRN Reason Stop Dose Admin Acetaminophen 650 mg 09/25/20 17:30 09/27/20 16:45 Acetaminophen 325 Mg Tab PO 650 mg Q4H PRN Administration Pain MILD(1-3)/Fever >100.5/JACKSON Albuterol 2.5 mg 09/25/20 17:30 Albuterol 2.5 Mg/3 Ml Nebu IH Q4HRT PRN Shortness Of Breath Amlodipine Besylate 10 mg 09/26/20 12:00 09/28/20 10:44 Amlodipine 10 Mg Tab PO 10 mg DAILY GUDELIA Administration Ascorbic Acid 1,000 mg 09/26/20 11:00 09/28/20 21:43 Ascorbic Acid 500 Mg Tab PO 1,000 mg BID GUDELIA Administration Atorvastatin Calcium 20 mg 09/27/20 22:00 09/28/20 21:50 Atorvastatin 20 Mg Tab PO 20 mg QHS GUDELIA Administration Azithromycin 500 mg 09/27/20 10:00 09/28/20 10:43 Azithromycin 250 Mg Tab PO 09/29/20 10:01 500 mg QDAY GUDELIA Administration Buspirone HCl 5 mg 09/26/20 11:00 09/28/20 10:44 Buspirone 5 Mg Tab PO 5 mg DAILY GUDELIA Administration Cholecalciferol 5,000 unit 09/27/20 10:00 09/28/20 10:44 Cholecalciferol (Vit D3) 5,000 Unit Tab PO 5,000 unit DAILY GUDELIA Administration Duloxetine HCl 60 mg 09/26/20 11:00 09/28/20 10:44 Duloxetine 30 Mg Cap PO 60 mg QDAY GUDELIA Administration Enoxaparin Sodium 40 mg 09/27/20 22:00 09/28/20 21:44 Enoxaparin 40 Mg/0.4 Ml Inj SUB-Q 40 mg QDAY@2200 GUDELIA Administration Protocol Fenofibrate 145 mg 09/28/20 10:00 09/28/20 11:36 Fenofibrate 145 Mg Tab PO 145 mg QDAY GUDELIA Administration Hydromorphone HCl 0.5 mg 09/25/20 17:30 09/29/20 00:20 Hydromorphone 1 Mg/1 Ml Inj IV 0.5 mg Q12H PRN Administration Pain , Severe (7-10) Sodium Chloride 1,000 mls @ 125 mls/hr 09/26/20 08:00 09/28/20 10:46 Nacl 0.9% 1000 Ml IV 125 mls/hr DIRECT GUDELIA Administration Insulin Glargine 20 units 09/28/20 08:00 09/28/20 10:43 Insulin Glargine 100 Units/Ml SUB-Q 20 units QAMDIAB GUDELIA Administration Insulin Human Regular 0 units 09/28/20 13:00 09/28/20 21:44 Insulin Regular, Human 100 Units/1 Ml SUB-Q 3 units QACHS GUDELIA Administration Protocol Loperamide HCl 2 mg 09/28/20 15:09 Loperamide 2 Mg Cap PO Q2H PRN Diarrhea Metoclopramide HCl 10 mg 09/28/20 16:30 09/29/20 00:26 Metoclopramide 10 Mg/2 Ml Inj IV Not Given ACHS GUDELIA Metoprolol Tartrate 25 mg 09/27/20 22:00 09/28/20 21:43 Metoprolol Tartrate 25 Mg Tab PO 25 mg BID GUDELIA Administration Ondansetron HCl 4 mg 09/25/20 17:30 09/27/20 16:45 Ondansetron 4 Mg/2 Ml Inj IV 4 mg Q8H PRN Administration Nausea And Vomiting Oxycodone/Acetaminophen 1 tab 09/25/20 17:30 09/28/20 05:00 Oxycodone /Acetaminophen 5-325mg Tab PO 1 tab Q12H PRN Administration Pain, Moderate (4-6) Pantoprazole Sodium 40 mg 09/26/20 12:00 09/28/20 10:55 Pantoprazole 40 Mg Tab PO 40 mg QDAC GUDELIA Administration Sodium Chloride 10 ml 09/25/20 22:00 09/29/20 00:27 Sodium Chloride 0.9% 10 Ml Flush Syringe IV 10 ml BID GUDELIA Administration Sodium Chloride 10 ml 09/25/20 17:30 Sodium Chloride 0.9% 10 Ml Flush Syringe IV PRN PRN LINE FLUSH Zinc Sulfate 220 mg 09/25/20 22:00 09/28/20 21:43 Zinc Sulfate 220 Mg Cap PO 220 mg BID GUDELIA Administration
[2020-09-29 09:02] VITALS: BP 157/99
[2020-09-29] MEDS: INSULIN GLARGINE 100 UNITS/ML SUB-Q SCH (10:21)
[2020-09-29] MEDS: METOPROLOL TARTRATE 25 MG TAB PO SCH (10:22)
[2020-09-29] MEDS: DULoxetine 30 MG CAP PO SCH (10:22)
[2020-09-29] MEDS: amLODIPine 10 MG TAB PO SCH (10:22)
[2020-09-29] MEDS: ASCORBIC ACID 500 MG TAB PO SCH (10:22)
[2020-09-29] MEDS: FENOFIBRATE 145 MG TAB PO SCH (10:22)
[2020-09-29] MEDS: ZINC SULFATE 220 MG CAP PO SCH (10:22)
[2020-09-29] MEDS: CHOLECALCIFEROL (VIT D3) 5,000 UNIT TAB PO SCH (10:22)
[2020-09-29] MEDS: AZITHROMYCIN 250 MG TAB PO SCH (10:22)
[2020-09-29] MEDS: busPIRone 5 MG TAB PO SCH (10:22)
[2020-09-29] MEDS: INSULIN REGULAR, HUMAN 100 UNITS/1 ML SUB-Q SCH (10:23)
[2020-09-29] MEDS: PANTOPRAZOLE 40 MG TAB PO SCH (10:26)
--- NOTE | 2020-09-29 11:37 | Discharge Summary ---
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 For the pas few she also experienced unsteady gait. In the ER Labs significant for Sodium 112, Glu 528 and bicarb 18. CTA chest negative for PE and any acute process. Nephrology was consulted for evaluation and treatment of Hyponatremia. Daily clinical course: 09/26/20; pending COVID-19 test, initiated on SSI every 4 hours along with Lantus, continue to follow serum blood glucose and BMP every 4 hours. Nephrology consulted, arnold follow recommendation. 09/27/20: Neg covid test. BG remains at 300s -further adjust insulin dose, patient complains of nausea -we will add Reglan. Follow clinically. Sodium level has significantly improved. Noted to have total cholesterol more than 600 and triglyceride level more than 3000. Initiated on Lipitor and TriCor. 09/28/20: K noted to be 2.8. cont replete K. follow BMP. cont to have nausea and diarrhea. has h/o gastroparesis. change reglan to iv, add loperamide to control diarrhea 09/29/20: Potassium level normalized, initiated on losartan for blood pressure control. Sodium level 127 today. Counseled and educated patient for the reason for low sodium level which is her uncontrolled diabetes and severe hyperlipidemia and triglyceridemia. Counselled for diet and exercise and compliance for medications. Patient verbalized understanding. Patient will need repeat BMP in 1 week and repeat cholesterol level in 1 month. Discharge plan and management was thoroughly discussed with the patient and she verbalized understanding. Patient will follow up with her PCP in 1 week. Disposition: 01 HOME / SELF CARE / HOMELESS Time spent for discharge: 34 minutes Exam - Constitutional Vitals: Temp Pulse Resp BP Pulse Ox 97.3 F L 95 H 18 157/99 97 09/29/20 07:48 09/29/20 07:48 09/29/20 07:48 09/29/20 07:48 09/29/20 07:48 Plan Activity: advance as tolerated Weight Bearing Status: Weight Bear as Tolerated Diet: low cholesterol, low salt, diabetic Additional Instructions: Repeat BMP in 1 week and repeat cholesterol level in 1 month. Please follow up with her PCP in 1 week. Follow up with: PRIMARY CARE, [Primary Care Provider] - 3-5 Days Prescriptions: AtorvaSTATin [Lipitor] 40 mg PO QHS #30 tablet amLODIPine 10 mg PO DAILY #30 tablet Losartan [Cozaar] 100 mg PO QDAY 30 Days #30 tablet Insulin Glargine [Lantus VIAL] 20 units SUB-Q QAMDIAB 30 Days Metoprolol [Lopressor TAB] 25 mg PO BID #60 tablet Metoclopramide [Reglan] 10 mg PO ACHS #120 tablet Fenofibrate [Tricor] 145 mg PO QDAY #30 tablet
== END 2020-09-29 13:05 | disposition home or self-care (01) | DRG 640 ==
LOC: ED 09:29 → 3A 17:02 → 4A 09-26 20:16
PROVIDERS: ADMIT Internal Medicine; ATTEND Internal Medicine
DX: E87.1 Hypo-osmolality and hyponatremia (principal); E11.00 Type 2 diabetes mellitus with hyperosmolarity without nonketotic hyperglycemic-hyperosmolar coma (NKHHC); R65.10 Systemic inflammatory response syndrome (SIRS) of non-infectious origin without acute organ dysfunction; Z20.822 Contact with and (suspected) exposure to COVID-19; I10 Essential (primary) hypertension; K21.9 Gastro-esophageal reflux disease without esophagitis; G43.909 Migraine, unspecified, not intractable, without status migrainosus; M79.7 Fibromyalgia; Z88.8 Allergy status to other drugs, medicaments and biological substances; E83.51 Hypocalcemia; E78.5 Hyperlipidemia, unspecified; Z79.4 Long term (current) use of insulin; Z79.899 Other long term (current) drug therapy; R79.1 Abnormal coagulation profile; E87.6 Hypokalemia; Z86.16 Personal history of COVID-19
CPT/HCPCS: 36415; 71046; 71275; 80048; 80053; 80061; 81001; 82533; 82565; 82962; 83615; 83735; 83930; 83935; 84100; 84132; 84145; 84300; 84484; 84550; 85007; 85025; 85027; 85379; 85610; 85730; 86140; 93005; G0378; A9270-GY; J0456; J0610; J1170; J1644; J1650; J1815; J2060; J2405; J2765; J2920; J3480; J7030; J7050; Q9967; U0003